=== PATIENT | female | born 1995 | race Caucasian/White ===

== ENCOUNTER 2019-12-22 19:51 | Emergency (ER) | payer MEDICAID, SELFPAY ==
[~2019-12-22] VITALS: Ht 172.7 cm; Wt 95.1 kg
[2019-12-22] MEDS ORDERED: LEVO150T7 PO (20:13)
[2019-12-22 21:35] LABS: BASO # 0.1 10^3/uL (0.0-0.2); BASO % 0.6 % (0.0-1.0); EOS # 0.1 10^3/uL (0.0-0.5); EOS % 1.2 % (0.0-3.0); HEMATOCRIT 38.6 % (36.0-47.0); HEMOGLOBIN 12.8 g/dl (12.0-15.5); LYMPH # 2.3 10^3/uL (1.5-5.0); LYMPH % 22.4 % (24.0-44.0); MEAN CORPUSCULAR HEMOGLOBIN 30.1 pg (27.0-33.0); MEAN CORPUSCULAR HGB CONC 33.2 g/dl (32.0-36.5); MEAN CORPUSCULAR VOLUME 90.8 fl (80.0-96.0); MONO # 0.9 10^3/uL (0.0-0.8); MONO % 8.8 % (0.0-5.0); NEUTROPHILS # 6.9 10^3/uL (1.5-8.5); NEUTROPHILS % 66.8 % (36.0-66.0); PLATELET COUNT, AUTOMATED 376 10^3/uL (150-450); RED BLOOD COUNT 4.25 10^6/uL (4.00-5.40); WHITE BLOOD COUNT 10.3 10^3/uL (4.0-10.0)
[2019-12-22] MEDS ORDERED: KETOROLAC 30 MG/ML 1ML VIAL IV ONE (22:15)
[2019-12-22] MEDS ORDERED: NS 1,000 ML IV ONE (22:15)
[2019-12-22] MEDS ORDERED: ONDANSETRON 4MG/2ML VIAL IV ONE (22:15)
--- NOTE | 2019-12-22 22:28 | REPVR ---
PROCEDURE INFORMATION: Exam: US First Trimester, Transabdominal Exam date and time: 12/22/2019 9:42 PM Age: 24 years old Clinical indication: Lmp or gestational age (in weeks): 10/15/2019; Other: Vaginal bleeding, pain; ; Additional info: Vaginal bleeding, ab pain, known non-viable TECHNIQUE: Imaging protocol: Real-time transabdominal obstetrical ultrasound of the maternal pelvis and a first trimester , less than 14 weeks 0 days, with image documentation. COMPARISON: No relevant prior studies available. FINDINGS: Gestation: The mean sac size is 23 mm corresponding to 6 weeks and 5 days gestation. The pole measures 26.6 mm corresponding to 5 weeks and 6 days. Embryonic/ heart rate: heart rate not detected. Placenta: Unremarkable. No subchorionic bleed. Amniotic fluid: Amniotic fluid is normal for gestational age. MATERNAL: Uterus: Uterus measures 10.3 x 6.4 x 5.0 cm. Uterus is anteverted. Cervix: Unremarkable. Right adnexa: Not visualized. Left adnexa: Not visualized. Intraperitoneal space: No intraperitoneal free fluid. Other findings: Ovaries not visualized. IMPRESSION: Single intrauterine gestational sac with estimated age of 5 weeks and 6 days No evidence for heart rate.. Findings may suggest early gestation/nonviable . Continued follow-up is suggested. Electronically signed by: Mundo Arias On 12/22/2019 22:28:43 PM
[2019-12-22 22:34] LABS: BLOOD UREA NITROGEN 11 MG/DL (7-18); CALCIUM LEVEL 9.5 MG/DL (8.5-10.1); CARBON DIOXIDE LEVEL 27 MEQ/L (21-32); CHLORIDE LEVEL 105 MEQ/L (98-107); CREATININE FOR GFR 0.65 MG/DL (0.55-1.30); GLOMERULAR FILTRATION RATE > 60.0 (>60); GLUCOSE, FASTING 80 MG/DL (70-100); HCG, SERUM QUANTITATIVE 10728 MIU/ML; POTASSIUM SERUM 4.3 MEQ/L (3.5-5.1); SODIUM LEVEL 136 MEQ/L (136-145)
[2019-12-23] MEDS ORDERED: FLUCONAZOLE 50MG TABLET PO ONE
[2019-12-23] MEDS ORDERED: DIFL150T PO (00:08)
[2019-12-23 00:25] LABS: CHLAMYDIA DNA AMPLIFICATION NEGATIVE (NEGATIVE); GC DNA AMPLIFICATION NEGATIVE (NEGATIVE)
[2019-12-23 00:34] VITALS: BP 136/79
[2019-12-24 10:36] LABS: HEPATITIS B SURFACE ANTIGEN NEGATIVE (NEGATIVE)
[2019-12-24 11:02] LABS: HEPATITIS C VIRUS ABY INDEX 0.1 INDEX (<0.8)
[2019-12-24 11:03] LABS: HEPATITIS B CORE ANTIBODY IGM NEGATIVE (NEGATIVE)
[2019-12-24 11:05] LABS: HEPATITIS A ANTIBODY IGM NEGATIVE (NEGATIVE)
[2019-12-27 07:08] LABS: HSV-1 DNA Negative (Negative); HSV-2 DNA Negative (Negative)
== END 2019-12-23 00:36 | disposition home or self-care (01) ==
LOC: EDBD 19:51 → M ED 19:51
DX: O03.89 Complete or unspecified spontaneous abortion with other complications (principal); O23.591 Infection of other part of genital tract in pregnancy, first trimester; B37.3 Candidiasis of vulva and vagina; Z3A.01 Less than 8 weeks gestation of pregnancy; Z79.890 Hormone replacement therapy
CPT/HCPCS: 76801; 76817; 80048; 81001; 84702; 85025; 86705; 86709; 86803; 86850; 86900; 86901; 87210; 87340; 87529; 87661; 96374; 96375; 99284; J1885; J2405

== ENCOUNTER → 2019-12-27 | Outpatient (CLI) | payer OTHER ==
[~2019-12-27] MED LIST: DIFL150T PO; LEVO150T7 PO
--- NOTE | 2019-12-27 10:49 | REPVR ---
PROCEDURE INFORMATION: Exam: US First Trimester, Transabdominal and US , Transvaginal Exam date and time: 12/27/2019 9:48 AM Age: 24 years old Clinical indication: Screening exam; Other: Dating/viability; ; Additional info: Dating and viability TECHNIQUE: Imaging protocol: Real-time transabdominal obstetrical ultrasound of the maternal pelvis and a first trimester , less than 14 weeks 0 days, with image documentation. Transvaginal imaging was used for better evaluation of the fetus and adnexa. COMPARISON: 1ST TRIMESTER US 12/22/2019 9:29 PM FINDINGS: Gestation: Intrauterine with visualization of the intrauterine gestational sac and yolk sac. Irregular contour of the gestational sac. No definite pole but possible embryonic disc, measuring 2.1 mm, which would correspond to a ultrasound gestational age of 5 weeks 5 days. Embryonic/ heart rate: No cardiac activity identified. Placenta: No subchorionic bleed. Amniotic fluid: Amniotic fluid is normal for gestational age. BIOMETRY: Gestational age (AUA): 5 weeks 5 days. MATERNAL: Uterus: Uterus measures 10.1 x 4.5 x 6.8 cm. No myometrial mass. Cervix: Cervix is unremarkable. Right adnexa: Right ovary measures 1.9 x 1.7 x 1.5 cm and is unremarkable. Left adnexa: Left ovary measures 2.0 x 1.0 x 1.1 cm and is unremarkable. Intraperitoneal space: No intraperitoneal free fluid. IMPRESSION: No significant change when compared to the recent examination of 12/22/2019. IUP with an irregular gestational sac and possible embryonic disc, but no clearly defined pole. Ultrasound gestational age of 5 weeks 5 days is discordant with dates by LMP. This is concerning for failed and recommend correlation with serial beta hCG. Early IUP cannot be excluded and follow-up ultrasound can be performed if clinically warranted. Findings were discussed with Huong Ngo at 12/27/2019 10:35 AM EDT. Electronically signed by: Jad Mcdermott On 12/27/2019 10:49:38 AM
== END ==
LOC: M RAD 09:33
PROVIDERS: ATTEND Obstetrics & Gynecology
DX: Z34.81 Encounter for supervision of other normal pregnancy, first trimester (principal); Z3A.01 Less than 8 weeks gestation of pregnancy

== ENCOUNTER 2021-01-22 15:41 | Emergency (ER) | payer OTHER ==
[~2021-01-22] VITALS: Ht 172.7 cm; Wt 103.4 kg
[2021-01-22 15:44] VITALS: BP 120/92
--- OUTSIDE RECORDS SUMMARY | 2021-01-22 16:02 | CCD ---
Author Author [facility] Organization [facility] Address Unknown Phone Unavailable Care Team Providers Care Naphthalene Still Operator Name Role Phone Hospital [facility] [place] Unavailable Unavailable CHINTAN SCHROEDER MD Unavailable Unavailable CHINTAN SCHROEDER MD Unavailable Unavailable CHINTAN SCHROEDER MD Unavailable Unavailable CHINTAN SCHROEDER MD Unavailable Unavailable CHINTAN SCHROEDER MD Unavailable Unavailable CHINTAN SCHROEDER MD Unavailable Unavailable CHINTAN SCHROEDER MD Unavailable Unavailable CHINTAN SCHROEDER MD Unavailable Unavailable CHINTAN SCHROEDER MD Unavailable Unavailable CHINTAN SCHROEDER MD Unavailable Unavailable CHINTAN SCHROEDER MD Unavailable Unavailable CHINTAN SCHROEDER MD Unavailable Unavailable TURRIN, ANA ROSA Unavailable Unavailable TURRIN, ANA ROSA Unavailable Unavailable TURRIN, ANA ROSA Unavailable Unavailable TURRIN, ANA ROSA Unavailable Unavailable TORY, SYLVESTER PA Unavailable Unavailable TORY, SYLVESTER PA Unavailable Unavailable TORY, SYLVESTER PA Unavailable Unavailable TORY, SYLVESTER PA Unavailable Unavailable TORY, SYLVESTER PA Unavailable Unavailable TORY, SYLVESTER PA Unavailable Unavailable TORY, SYLVESTER PA Unavailable Unavailable TORY, SYLVESTER PA Unavailable Unavailable TORY, SYLVESTER PA Unavailable Unavailable TORY, SYLVESTER PA Unavailable Unavailable TORY, SYLVESTER PA Unavailable Unavailable TORY, SYLVESTER PA Unavailable Unavailable TORY, SYLVESTER PA Unavailable Unavailable TORY, SYLVESTER PA Unavailable Unavailable TORY, SYLVESTER PA Unavailable Unavailable TORY, SYLVESTER PA Unavailable Unavailable TORY, SYLVESTER PA Unavailable Unavailable TORY, SYLVESTER PA Unavailable Unavailable TORY, SYLVESTER PA Unavailable Unavailable TORY, SYLVESTER PA Unavailable Unavailable TORY, SYLVESTER PA Unavailable Unavailable TORY, SYLVESTER PA Unavailable Unavailable TORY, SYLVESTER PA Unavailable Unavailable TORY, SYLVESTER PA Unavailable Unavailable TORY, SYLVESTER PA Unavailable Unavailable TORY, SYLVESTER PA Unavailable Unavailable TORY, SYLVESTER PA Unavailable Unavailable TORY, SYLVESTER PA Unavailable Unavailable TORY, SYLVESTER PA Unavailable Unavailable TORY, SYLVESTER PA Unavailable Unavailable TORY, SYLVESTER PA Unavailable Unavailable TORY, SYLVESTER PA Unavailable Unavailable TORY, SYLVESTER PA Unavailable Unavailable TORY, SYLVESTER PA Unavailable Unavailable TORY, SYLVESTER PA Unavailable Unavailable TORY, SYLVESTER PA Unavailable Unavailable Niranjan, J Kamila CARBON PAPER INTERLEAFER Unavailable Unavailable Niranjan, J Kamila CARBON PAPER INTERLEAFER Unavailable Unavailable Niranjan, J Kamila CARBON PAPER INTERLEAFER Unavailable Unavailable Niranjan, J Kamila CARBON PAPER INTERLEAFER Unavailable Unavailable Niranjan, J Kamila CARBON PAPER INTERLEAFER Unavailable Unavailable Niranjan, J Kamila CARBON PAPER INTERLEAFER Unavailable Unavailable Niranjan, J Kamila CARBON PAPER INTERLEAFER Unavailable Unavailable Niranjan, J Kamila CARBON PAPER INTERLEAFER Unavailable Unavailable Niranjan, J Kamila CARBON PAPER INTERLEAFER Unavailable Unavailable Niranjan, J Kamila CARBON PAPER INTERLEAFER Unavailable Unavailable Niranjan, J Kamila CARBON PAPER INTERLEAFER Unavailable Unavailable Niranjan, J Kamila CARBON PAPER INTERLEAFER Unavailable Unavailable Niranjan, J Kamila CARBON PAPER INTERLEAFER Unavailable Unavailable Niranjan, J Kamila CARBON PAPER INTERLEAFER Unavailable Unavailable Niranjan, J Kamila CARBON PAPER INTERLEAFER Unavailable Unavailable Niranjan, J Kamila CARBON PAPER INTERLEAFER Unavailable Unavailable Niranjan, J Kamila CARBON PAPER INTERLEAFER Unavailable Unavailable Niranjan, J Kamila CARBON PAPER INTERLEAFER Unavailable Unavailable Niranjan, J Kamila CARBON PAPER INTERLEAFER Unavailable Unavailable Niranjan, J Kamila CARBON PAPER INTERLEAFER Unavailable Unavailable Niranjan, J Kamila CARBON PAPER INTERLEAFER Unavailable Unavailable Niranjan, J Kamila CARBON PAPER INTERLEAFER Unavailable Unavailable Niranjan, J Kamila CARBON PAPER INTERLEAFER Unavailable Unavailable Niranjan, J Kamila CARBON PAPER INTERLEAFER Unavailable Unavailable Niranjan, J Kamila CARBON PAPER INTERLEAFER Unavailable Unavailable Niranjan, J Kamila CARBON PAPER INTERLEAFER Unavailable Unavailable Niranjan, J Kamila CARBON PAPER INTERLEAFER Unavailable Unavailable Niranjan, J Kamila CARBON PAPER INTERLEAFER Unavailable Unavailable Niranjan, J Kamila CARBON PAPER INTERLEAFER Unavailable Unavailable Niranjan, J Kamila CARBON PAPER INTERLEAFER Unavailable Unavailable Niranjan, J Kamila CARBON PAPER INTERLEAFER Unavailable Unavailable Niranjan, J Kamila CARBON PAPER INTERLEAFER Unavailable Unavailable Niranjan, J Kamila CARBON PAPER INTERLEAFER Unavailable Unavailable Niranjan, J Kamila CARBON PAPER INTERLEAFER Unavailable Unavailable Niranjan, J Kamila CARBON PAPER INTERLEAFER Unavailable Unavailable Niranjan, J Kamila CARBON PAPER INTERLEAFER Unavailable Unavailable Niranjan, J Kamila CARBON PAPER INTERLEAFER Unavailable Unavailable Niranjan, J Kamila CARBON PAPER INTERLEAFER Unavailable Unavailable Niranjan, J Kamila CARBON PAPER INTERLEAFER Unavailable Unavailable Niranjan, J Kamila CARBON PAPER INTERLEAFER Unavailable Unavailable [place] Run, Precious PA Unavailable Unavailable Steve, Precious PA Unavailable Unavailable Steve, Precious PA Unavailable Unavailable [place], Precious PA Unavailable Unavailable [place], Precious PA Unavailable Unavailable Steve, Precious PA Unavailable Unavailable Steve, Precious PA Unavailable Unavailable Steve, Precious PA Unavailable Unavailable [place], Precious PA Unavailable Unavailable [place], Precious PA Unavailable Unavailable [place], Precious PA Unavailable Unavailable Steve, Precious PA Unavailable Unavailable Steve, Precious PA Unavailable Unavailable [place], Precious PA Unavailable Unavailable [place], Precious PA Unavailable Unavailable [place], Precious PA Unavailable Unavailable [place], Precious PA Unavailable Unavailable [place], Precious PA Unavailable Unavailable [place], Precious PA Unavailable Unavailable Steve, Precious PA Unavailable Unavailable [place], Precious PA Unavailable Unavailable [place], Precious PA Unavailable Unavailable [place], Precious PA Unavailable Unavailable [place], Precious PA Unavailable Unavailable Steve, Precious PA Unavailable Unavailable [place], Precious PA Unavailable Unavailable Steve, Precious PA Unavailable Unavailable Steve, Precious PA Unavailable Unavailable Steve, Precious PA Unavailable Unavailable Steve, Precious PA Unavailable Unavailable Steve, Precious PA Unavailable Unavailable Steve, Precious PA Unavailable Unavailable [place], Precious PA Unavailable Unavailable [place], Precious PA Unavailable Unavailable Steve, Precious PA Unavailable Unavailable [facility] Unavailable Unavailable Anju YANG MD Unavailable Unavailable Anju YANG MD Unavailable Unavailable CHANLIECCO, C LEE MD Unavailable Unavailable CHANLIECCO, C LEE MD Unavailable Unavailable CHANLIECCO, C LEE MD Unavailable Unavailable CHANLIECCO, C LEE MD Unavailable Unavailable CHANLIECCO, C LEE MD Unavailable Unavailable CHANLIECCO, C LEE MD Unavailable Unavailable CHANLIECCO, C LEE MD Unavailable Unavailable CHANLIECCO, C LEE MD Unavailable Unavailable CHANLIECCO, C LEE MD Unavailable Unavailable Re-disclosure Warning The records that you are about to access may contain information from federally-assisted alcohol or drug abuse programs. If such information is present, then the following federally mandated warning applies: This information has been disclosed to you from records protected by federal confidentiality rules (42 CFR part 2). The federal rules prohibit you from making any further disclosure of this information unless further disclosure is expressly permitted by the written consent of the person to whom it pertains or as otherwise permitted by 42 CFR part 2. A general authorization for the release of medical or other information is NOT sufficient for this purpose. The Federal rules restrict any use of the information to criminally investigate or prosecute any alcohol or drug abuse patient.The records that you are about to access may contain highly sensitive health information, the redisclosure of which is protected by Article 27-F of the [facility] Public Health law. If you continue you may have access to information: Regarding HIV / AIDS; Provided by facilities licensed or operated by the [facility] Office of Mental Health; or Provided by the [facility] Office for People With Developmental Disabilities. If such information is present, then the following [facility] mandated warning applies: This information has been disclosed to you from confidential records which are protected by state law. State law prohibits you from making any further disclosure of this information without the specific written consent of the person to whom it pertains, or as otherwise permitted by law. Any unauthorized further disclosure in violation of state law may result in a fine or long-term sentence or both. A general authorization for the release of medical or other information is NOT sufficient authorization for further disc losure. Allergies and Adverse Reactions Type Description Substance Reaction Status Data Source(s ) Propensity to adverse reactions NO KNOWN ALLERGIES NO KNOWN ALLERGIES [facility] Family History Family Member Name Family Member Gender Family Member Status Date o f Status Description Data Source(s) Unknown Unknown Problem MED[facility] ([facility]) Encounters Encounter Providers Location Date Indications Data Source(s ) Outpatient Attender: [facility] 10/07/2020 07:2 5:00 AM EDT [facility] Emergency Attender: ANA ROSA BARBOZAConsultant: DAVID DUGAN 10/07/2020 06:36:00 AM EDT - 10/07/2020 01:58:[address] [facility] Patient discharged. Emergency Attender: LEE YANG MDConsultant: CLIN IC CHEPE 08/30/2020 03:51:00 AM EDT - 08/30/2020 05:02:[address] [facility] Patient discharged. Outpatient Attender: Precious LOPEZ [id number] 12:00:00 AM EDT - 06/20/2020 03:11:[facility]: Kamila Ureña NP 05/23/2020 12:00:00 AM [facility] Emergency Attender: LEE YANG MDConsultant: GUERLINE IC CHEPE 05/20/2020 06:59:00 PM EST - 05/20/2020 09:06:00 PM [facility] Patient discharged. Emergency Attender: CHINTAN SCHROEDER MD 1 04/21/2019 05:37:00 PM EST - 02/20/2020 10:06:00 PM [facility] Patient discharged. [facility] [place] [address] [facility] [phone] 01/24/2020 12:00:00 AM EDT eCW1 ([facility]) Emergency Attender: ANA ROSA BARBOZA 2019 06:31:00 PM EDT - 01/10/2020 08:20:[address] [facility] Patient discharged. [place] [address] [place] [phone] 01/07/2020 12:00:00 AM EDT eCW1 ([facility]) Outpatient Attender: SYLVESTER astudillo 12/13/2019 05:05:00 PM EDT [facility] ([facility], [facility]) Medications Medication Brand Name Start Date Product Form Dose Route Admi nistrative Instructions Pharmacy Instructions Status Indications Reaction Description Data Source(s) Ethinyl Estradiol 0.035 MG / norgestimat e 0.25 MG Oral Tablet Norgestimate-Eth Estradiol 0.25-35 MG-MCG Oral Tablet (Estarylla) Norgestimate-Eth Estradiol 0.25-35 MG-MCG Oral Tablet (Estarylla) 10/22/2019 12:00:00 AM EDT 1 {tbl} Oral aborted Take 1 tablet by lexy weir [facility] Insurance Providers Payer name Policy type / Coverage type Policy ID Covered green party ID Covered green party's relationship to wiley Policy Wiley Plan Information U [id number] Child [id number] U [id number] Self [id number] EMPIRE PLAN [facility] U [id number] Child [id number] [place] 306/806 [id number] EXCELLUS H [id number] Child [id number] U [id number] Self [id number] [employer] - O/P [id number] 01 [id number] [place] - PHYSICIAN [id number] 01 [id number] O UNAVAILABLE UNAVAILA BLE EXCELLUS BCBS B [id number] C VYA [id number] PGBA [place] [id number] SP [id number] PGBA [place] [id number] [id number] SELF PAY ONLY - SP1 SP [place]BS [place] PPO [id number] [id number] [place] PPO 302/307 [id number] SP [id number] VALUE OPTIONS OUTPATIENT CLAIM [id number] [facility] [id number] [facility] [id number] DA2 [id number] ANSI-Commercial [id number] ANSI-Commercial [id number] [facility] [id number] [facility] [id number] MO2 [id number] ANSI-Commercial [id number] BCBS EMPIRE ST[place] DIV [id number] [facility] [place] Commercial [id number] Family Dependent [id number] [facility] Commercial [id number] Family Dependent [id number] SELF PAY HEA UNAVAILABLE [id number] S UNAVAILA BLE O UNAVAILABLE S [facility]ILA BLE [facility] O [id number] P [id number] [facility] EMPIRE PLAN O [id number] P [id number] [facility] [id number] 2 [id number] [facility] O [id number] P [id number] SELF PAY ONLY [id number] [facility] - O/P [id number] 01 [id number] [employer] [place] 306/806 [id number] [id number] [place] [id number] Problems, Conditions, and Diagnoses Code Display Name Description Problem Type Effective Dates Data Source(s) E039 Hypothyroidism, unspecified Hypothyroidism, unspecifie d Diagnosis 10/07/2020 06:36:[address] [facility] U071 COVID-19 COVID-19 Diagnosis 10/07/2020 06:36:[address] [facility] R0600 Dyspnea, unspecified Dyspnea, unspecified Diagnosis 10/07/2020 06:36:[address] [facility] G8929 Other chronic pain Other chronic pain Diagnosis 07/2020 03:51:[address] [facility] R102 Pelvic and perineal pain Pelvic and perineal pain Diag nosis 08/30/2020 03:51:00 AM [facility] Y[address] or not applicable Unspecified place or not applicable Diagnosis 05/20/2020 06:59:00 PM [facility] [id number] Exposure to other specified factors, ini tial encounter Exposure to other specified factors, initial encounter Diagnosis 05/20/2020 06:59:00 PM [facility] [id number] Tension-type headache, unspecified, not intractable Tension-type headache, unspecified, not intractable Diagnosis 05/20/2020 06:59:00 P M [facility] 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, lumbar region Other intervertebral disc displacement, lumbar region Diagnosis 05/20/2020 06:59:00 PM [facility] [id number] Strain of muscle, fascia and tendon of l ower back, initial encounter Strain of muscle, fascia and tendon of lower back, initial encounter Diagnosis 05/20/2020 06:59:00 PM [facility] M545 Low back pain Low back pain Diagnosis 05/20/2020 06:59:00 PM [facility] R935 Abnormal findings on diagnos tic imaging of other abdominal regions, including retroperitoneum Abnormal findings on diagnostic imaging of other abdominal regions, including retroperitoneum Diagnosis 05:37:00 PM [facility] R1030 Lower abdominal pain, unspecified Lower abdomina l pain, unspecified Diagnosis 02/20/2020 05:37:00 PM [facility] N921 Excessive and frequent menstruation with irregular cycle Excessive and frequent menstruation with irregular cycle Diagnosis 02/20/2020 05:37: 00 PM [facility] N939 Abnormal uterine and vaginal bleeding, u nspecified Abnormal uterine and vaginal bleeding, unspecified Diagnosis 02/20/2020 05:37:00 PM [facility] [id number] 10 weeks gestation of 10 weeks gestation of Diagnosis 01/10/2020 06:31:00 PM [facility] O036 Delayed or excessive hemorrh age following complete or unspecified spontaneous Delayed or excessive hemorrhage followin g complete or unspecified spontaneous Diagnosis 01/10/2020 06:31:00 PM [facility] O209 Hemorrhage in early , unspecifi ed Hemorrhage in early , unspecified Diagnosis 01/10/2020 06:31:[address] [facility] Surgeries/Procedures No Information Results ID Date Data Source [id number] 10/07/2020 06:36:[address] [facility] [address] [facility] Emergency Department [address] [place] [address] Phone #: ext- [phone] 10/07/2020 06:33 Patient: MAGDY HASSAN Sex: F : 1995 Age: 25yWEIGHT:99.7 kg HEIGHT:68 inches BMI:33.4ALLERGIES: No Known Drug AllergyCHIEF COMPLAINT: dyspneaDIAGNOSIS: Severe acute respiratory syndrome coronavirusLAB ORDERSOrder Description Priority Entered Acknowledged InitialedCBC w Diff STAT 06:53 10/07/2020 06:57 Tamra Flor Riccardo Katelyn M.D.;CMP STAT 06:53 10/07/2020 06:57 Tamra Flor Riccardo Katelyn M.D.;Lactic Acid STAT 06:53 10/07/2020 06:57 Tamra Flor Riccardo Katelyn M.D.;HCG Serum Qual STAT 06:53 10/07/2020 06:57 Tamra Flor Riccardo Katelyn M.D.;COVID-19 CAH STAT 06:53 10/07/2020 06:57 Chacho(Symptomatic as Ana Rosa Barbozaefined by CDC) Anna;(10/07/2020) (NotFirst Test) (NotHospitalized) (Not) (NotResident inCongregate CareSetting) (NotEmployed inHealthcare Setting)Blood Culture STAT 06:53 10/07/2020 Ack'd: 06:58 07:18 [id number] X2 (Ana Rosa Vasquez Katelyn Meyer RN06:53 10/07/2020) Anna;Blood Culture STAT 06:53 10/07/2020 Ack'd: 07:05 07:18 [id number] X2 (Ana Rosa Vasquez Katelyn Meyer RN07:03 10/07/2020) Anna;DIAGNOSTIC STUDY ORDERS [address] [facility] Emergency Department [address] [place] [address] Phone #: ext- [phone] 10/07/2020 06:33 Patient: MAGDY HASSAN Sex: F : 1995 Age: 25yOrder Description Priority Entered Acknowledged InitialedChest 2 View STAT 06:53 10/07/2020 Ack'd: 06:57 Gracie Flor(Oxygen?(No)) Ana Rosa Barboza Initialed: 07:18 Dale Bee RN, M.D.; Cancelled: Physician Order 08:04 Dale Bee RN Reason for Study: Cough, Fever, Shortness of BreathChest Portable 1 STAT 08:04 10/07/2020 08:04 Srinivas (Oxygen? Dale Bee RN; Rohit ZHAO(Yes)) Verbal orde r per ( Verbal order read back and verified ); Marilyn Griffith MD Reason for Study: CoughCT CTA CHEST STAT 10:03 10/07/2020 10:08 Dale(NONCOR) Marilyn Anguiano MD; Rohit ZHAOINC PP(Oxygen?(No))(IV?(Yes)) Reason for Study: dyspnea, +COVIDMEDICATION/IV/DRIP/FLUID ORDERSOrder Description Priority Entered Acknowledged InitialedDuoNeb Neb Tx 3 06:53 10/07/2020 07:19 DorismL Ana Rosa Barboza RN, M.D.;NS IV 1000 mL 06:53 10/07/2020 07:20 DorisBolus: : Bolus 1000 Ana Rosa Barboza RNmL (X1) Anna;Zofran 4 mg IVP X 1 06:54 10/07/2020 07:20 Dorisdose: 4 mg (NOW Ana Rosa Barboza RNx1) Anna;NS IV 1000 mL 08:03 10/07/2020 08:08 PeterBolus: : Bolus 1000 Dale Bee RN; Rohit Alonzo (X1) Verbal order per ( Verbal order read back and verified ); Marilyn Griffith MDIV NS 1000 mL 10:08 10/07/2020 10:45 PeterBolus : Bolus 1000 Marilyn Griffith MD; Rohit Alonzo (X1)Acetaminophen 1 g 10:48 10/07/2020 10:[address] [facility] Emergency Department [address] [place] [address] Phone #: ext- [phone] 10/07/2020 06:33 -- Patient: MAGDY HASSAN Sex: F : 1995 Age: 25yPO X1 dose: 1000 Marilyn Griffith MD; Rohit ZHAOmg (NOW x1)Motrin 800 mg PO 10:48 10/07/2020 10:51 DaleX1 dose: 800 mg Marilyn Griffith MD; Rohit RN(NOW x1)predniSONE PO 60 13:46 10/07/2020 13:53 Petermg (NOW x1) Marilyn Griffith MD; Rohit RNAzithromycin PO 13:46 10/07/2020 13:53 Ctxvo445 mg X1 Dose: Marilyn Griffith MD; Rohit ZHAO500 mg (NOW x1)GENERAL ORDERSOrder Description Priority Entered Acknowledged Initialed[Electronically signed by Dale Bee RN (13:58 10/07/2020)][Electronically signed by Ana Rosa Barboza M.D. (07:41 10/08/2020)][Electronically signed by Marilyn Griffith MD (19:03 10/11/2020)][Electronically locked by Dale Bee RN (13:58 10/07/2020)] Name Value Range Interpretation Code Description Data Anne Marie rce(s) Supporting Document(s) ID Date Data Source [id number] 10/07/2020 06:36:[address] [facility] [address] [facility] Emergency Department [address] [place] [address] Phone #: ext- [phone] 10/07/2020 06:33 Patient: MAGDY HASSAN Sex: F : 1995 Age: 25yWeight: 99.7 kgHeight/Length: 68 in.BMI: 33.4ALLERGIES: No Known Drug AllergyThe patient's Home Medications are listed below:CONTINUE TAKING THE FOLLOWING MEDICATIONS: Levothyroxine Sodium Oral (150 mcg) 1 tablet, dailyThe source(s) of the original Home Medication information:Not obtained.The following Medications were given to the patient in the Emergency Department:Duoneb [Neb Tx] Neb TX 1 unit dose, administered: 07:09 10/07/2020IV NS w/ bolus IV Fluids bolus 1000 mL over 1 hour(s), then 1000 mL/hr, administered: 07:10 10/07/2020Zofran [IVP] IVP 4 mg, administered: 07:10/07/2020NS [IV] IV Fluids bolus 0, then 750 mL/hr, administered: 08:08 10/07/2020NS [IV] IV Fluids bolus 0, then 1000 mL/hr, administered: 10:45 10/07/2020cetaminophen [PO] PO 1000 mg, administered: 10:50 10/07/2020Motrin [PO] PO 800 mg, administered: 10:51 10/07/2020zithromycin [PO] PO 500 mg, administered: 13:53 1Prednisone [PO] PO 60 mg, administered: 13:53 10/07/2020The following Medications were prescribed to the patient:Aerochamber Mini Use 1 device four times a day -- as directed. Dispense 1 device. Refills: 0.Substitution permitted. [address] [facility] Emergency Department [address] [place] [address] Phone #: ext- [phone] 10/07/2020 06:33 Patient: MAGDY HASSAN Sex: F : 1995 Age: 25yPh[facility] - [facility] [id number] [facility] ; [place] [address]. .albuterol sulfate HFA 90 mcg/actuation aerosol inhaler Inhale 2 puff four times a day as needed for 10 days-- for wheezing. Dispense 1 inhaler. Refills: 0. Sub[facility] permitted.[facility] ; [place] [address]. .ondansetron 4 mg di sintegrating tablet Take 1 tablet four times a day as needed for 4 days -- prnnausea/vomiting. Dispense 16 tablet. Refills: 0. Substitution permitted.Pharmacy - [facility] [address] [facility] ; [place] [address]. .Zithromax Z-Zeferino 250 mg tablet for 5 days -- take 2 tabs by mouth now, than take 1 tab a day x 4days. #6 RF 0. Dispense 6 tablet. Refills: 0. Substitution permitted.Pharmacy - [facility] [address] [facility] ; [place] [address]. .prednisone 20 mg tablet Take 3 tablet on ce a day for 5 days -- Dispense 15 tablet. Refills: 0.Substitution permitted.Pharmacy - [facility] - [id number] [facility] ; [place] [address]. . -- Marilyn Griffith MD Name Value Range Interpretation Code Description Data Anne Marie rce(s) Supporting Document(s) ID Date Data Source [id number] 10/07/2020 06:36:[address] [facility] [address] [facility] Emergency Department [address] [place] [address] Phone #: [phone] ext- [phone] 10/07/2020 06:33 Patient: MAGDY HASSAN Sex: F : 1995 Age: 25yWeight: 99.7 kgHeight/Length: 68 inBMI: 33.4ALLERGIES: No Known Drug Allergy Date/Time Medication Administered Medication OrderedGiven DUONEB [NEB TX] DuoNeb Neb Tx 3 mL07:10/07/2020 Dose: 1 unit dose Nebulizer Alison Connor IV NS W/ BOLUS NS IV 1000 mL Bolus: : Bolus 874658:10/07/2020 Dose: IV Fluids mL (X1)Ava Tate RN Rate: 1000 mL/hr over 1 hour(s)---- Bolus: 1000 mL over 1 hour(s)Stop Dispensed: 1000 mL bag08:02 10/07/2020 Site: #1 left ACPeter CECE BeeGicaron ZOFRAN [IVP] (ONDANSETRON HCL) Zofran 4 mg IVP X 1 dose: 4 mg07:10 10/07/2020 Dose: 4 mg IVP (NOW x1)Ava Tate RN Site: #1 left ACStart NS [IV] NS IV 1000 mL Bolus: : Bolus 548142:08 10/07/2020 Dose: IV Fluids mL (X1)Dale Bee RN Rate: 750 mL/hr over 1 hour(s)---- Dispensed: 1000 mL bagStop Site: #1 left AC09:12 1PAlison Bobby NS [IV] IV NS 1000 mL Bolus : Bolus 006188:45 10/07/2020 Dose: IV Fluids mL (X1)Dale Bee RN Rate: 1000 mL/hr over 1 hour(s)---- Dispensed: 1000 mL bagStop Site: #1 left AC13:58 1PMoises Bobby ACETAMINOPHEN [PO] Acetaminophen 1 g PO X1 dose:10:50 10/07/2020 Dose: 1000 mg Tablets PO 1000 mg (NOW x1)Moises Gallagher MOTRIN [PO] (IBUPROFEN) Motrin 800 mg PO X1 dose: 08899:51 10/07/2020 Dose: 800 mg Tablets PO mg (NOW x1)Moises Gallagher PREDNISONE [PO] pr edniSONE PO 60 mg (NOW x1)13:53 10/07/2020 Dose: 60 mg Tablets Moises Mas AZITHROMYCIN [PO] Azithromycin PO 500 mg X1 Dose:13:53 10/07/2020 Dose: 500 mg Tablets PO 500 mg (NOW x1)Dale Bee RN Name Value Range Interpretation Code Description Data Anne Marie rce(s) Supporting Document(s) ID Date Data Source [id number] 10/07/2020 06:36:[address] [facility] [address] [facility] Emergency Department [address] [place] [address] Phone #: ext- [phone] 10/07/2020 06:33 Patient: MAGDY HASSAN Sex: F : 1995 Age: 25y(Electronically signed by Ana Rosa Barboza M.D. 10/08/2020 07:41) Coronavirus COVID-19.INSTRUCTIONS Take Tylenol (Acetaminophen) or Motrin (Ibuprofen) as needed for fever control. Take medication according to label instructions. (Drink plenty of fluids. return if worse or any new symptoms. It is important to quarantine for 2 weeks. it is important to eat. i sent your prescriptions to the pharmacy on file.). Warnings: Further evaluation is necessary. GENERAL WARNINGS: Return or contact your physician immediately if your condition worsens or changes unexpectedly, if not improving as expected, or if other problems arise. Your Current Medications: Your current home medications have been reviewed. CONTINUE TAKING THE FOLLOWING MEDICATIONS: Levothyroxine Sodium Oral : Tablet 150 mcg, 1 tablet daily. Prescription Medications: Aerochamber Mini Use 1 device four times a day -- as directed. Dispense 1 device. Refills: 0. Substitution permitted. Pharmacy - [facility] [address] [facility] ; [place] [address]. . albuterol sulfate HFA 90 mcg/actuation aerosol inhaler Inhale 2 puff four times a day as needed for [address] [facility] Emergency Department [address] [place] [address] Phone #: ext- [phone] 10/07/2020 06:33 Patient: MAGDY HASSAN Sex: F : 1995 Age: 25y -- for wheezing. Dispense 1 inhaler. Refills: 0. Substitution permitted. Pharmacy - [facility] - [address] [facility] ; [place] [address]. . ondansetron 4 mg disintegrating tablet Take 1 tablet four times a day as needed for 4 days -- prn nausea/vomiting. Dispense 16 tablet. Refills: 0. Substitution permitted. Pharmacy - [facility] - [address] [facility] ; [place] [address]. . Zithromax Z-Zeferino 250 mg tablet for 5 days -- take 2 tabs by mouth now, than take 1 tab a day x 4 days. #6 RF 0. Dispense 6 tablet. Refills: 0. Substitution permitted. Pharmacy - [facility] - [address] [facility] ; [place] [address]. . prednisone 20 mg tablet Take 3 tablet once a day for 5 days -- Dispense 15 tablet. Refills: 0. Substitution permitted. Pharmacy - [facility] - [address] [facility] ; [place] [address]. Phone: . Follow-up: Follow up with your doctor telemedicine in two days even if well. Call for an appointment. Reason for referral: evaluation. Summary of care provided to patient via paper. Understanding of the discharge instructions verbalized by patient. ADDITIONAL INFORMATIONUnderstanding Coronavirus Disease 2 019 (COVID-19)Coronavirus disease 2019 (COVID-19) is a virus that causes a respiratory illness. It is caused by acoronavirus called 2019 novel coronavirus (2019-nCoV). There are many types of coronavirus.Coronaviruses are a very common cause of bronchitis. They may sometimes cause lung infection(pneumonia). Symptoms can range from mild to severe respiratory illness. These viruses are alsofound in some animals. COVID-19 was first found in people in [facility], in late 2019. In 2020,several cases of COVID-19 have been confirmed in the [place] COVID-19 is a rapidly-emerginginfectious disease. This means that scientists are actively researching it. There are informationupdates regularly.Public health officials are working to find the source. How the virus spreads is not yet fullyunderstood, but it seems to spread and infect people fairly easily. Some people who have beeninfected in an area may be unsure how or where they became infected. The virus may be spreadthrough droplets of fluid that a person coughs or sneezes into the air. It may be spread if you touch asurface with virus on it, such as a handle or object, and then touch your eyes, nose, or mouth. [address] [facility] Emergency Department [address] [place] [address] Phone #: ext- [phone] 10/07/2020 06:33 Patient: MAGDY HASSAN Sex: F : 1995 Age: 25yFor the latest information, visit the CDC website at www.cdc.gov/coronavirus/2019-ncov.What are the symptoms of COVID-19?Some people have no symptoms or mild symptoms. Symptoms may appear 2 to 14 days aftercontact with the virus. Symptoms can include: Fever Coughing Trouble breathingWhat are possible complications from COVID-19?In many cases, this virus can cause infection (pneumonia) in both lungs. In some cases, this cancause .How is COVID-19 diagnosed?Your healthcare provider will ask about your symptoms. He or she will also ask about your recenttravel and contact with sick people. If your healthcare provider thinks you may have COVID-19, jesús [facility]rews will work closely with your local health department and the CDC on testing. Follow all instructionsfrom your healthcare provider. COVID-19 is diagnosed by: Nasal and throat swab. A cotton-tipped swab is wiped inside your nose or throat. This is done to check for viruses in your nasal mucus. Sputum culture. A small sample of mucus coughed from your lungs (sputum) is collected if you have a cough. It is checked for the virus.How is COVID-19 treated?There is currently no medicine to treat the virus. Treatment is done to help your body while it fightsthe virus. This is known as supportive care. Supportive care may include: Pain medicine. These include acetaminophen and ibuprofen. They are used to help ease pain and reduce fever. Bed rest. This helps your body fight the illness.For severe illness, you may need to stay in the hospital. Care during severe illness may include: IV (intravenous) fluids.These are given through a vein to help keep your body hydrated. Oxygen. Supplemental oxygen or ventilation with a breathing machine (ventilator) may be given. This is done so you get enough oxygen in your body. [address] [facility] Emergency Department [address] [place] [address] Phone #: ext- [phone] 10/07/2020 06:33 Patient: MAGDY HASSAN Sex: F : 1995 Age: 25yAre you at risk for COVID-19?You are at risk for infection if you've been to a place where people have been sick with this virus or ifthere are people with COVID-19 in your area. You are at risk if you: Recently traveled to an area with a COVID-19 outbreak Had contact with a sick person who recently traveled to an area with a COVID-19 outbreak Had contact with a person who was diagnosed with or who may have COVID-19How can COVID-19 be prevented?There is no vaccine yet. The best prevention is to not have contact with the virus. The CDC advisesthat people should not travel to areas where there are COVID-19 outbreaks right now for any reasonthat is not urgent. For the most current CDC travel advisories, visit the CDC website atwww.cdc.gov/coronavirus/2019-ncov/travelers.To help prevent spreading the infection, wash your hands often, or use an alcohol-based hand record pressman. [address] [facility] Emergency Department [address] [place] [address] Phone #: ext- [phone] 10/07/2020 06:33 Patient: MAGDY HASSAN Sex: F : 1995 Age: 25yThe [facility] advises that you shouldn't wear a face mask if you are not sick.To protect yourself from COVID-19: Wash your hands often with soap and clean, running water for at least 20 seconds. If you don't have access to soap and water, use an alcohol-based hand record pressman often. Make sure it has at least 60% alcohol. Don't touch your eyes, nose, or mouth unless you have clean hands. Don't have contact with people who are sick. Follow local instructions about being in public. For example, you may be told to not use public transport for a period of time. Experts don't know if animals spread 2019-nCoV. But it's always a good idea to wash your hands after touching any animals. Don't touch animals that may be sick. Don't share eating or drinking tools with sick people. Don't kiss someone who is sick. Clean surfaces often with disinfectant.If you were in an area with COVID-19 in the last 14 days: Call your healthcare provider. He or she can talk with local health staff to see what action may be needed. Follow all instructions from your provider. Take your temperature every morning and evening for at least 14 days. This is to check for fever. Keep a record of the readings. Keep watch for symptoms of the virus. Tell your provider right away if you have symptoms. Stay home if you are sick for any reason.If you were in an area with COVID-19 and have a fever or other symptoms: Stay home. Don't panic. Keep in mind that other illnesses can cause similar symptoms. Stay away from work, school, and public places. Limit physical contact with family members. Don't kiss anyone or share eating or drinking utensils. Clean surfaces you touch with disinfectant. This is to help prevent the virus from spreading. Cough or sneeze into a tissue, then throw away the tissue in the trash. Or cough or sneeze [address] [facility] Emergency Department [address] [place] [address] Phone #: ext- [phone] 10/07/2020 06:33 Patient: MAGDY HASSAN Sex: F : 1995 Age: 25y into the bend of your elbow. Wear a face mask. Call your healthcare provider. Explain that you have been exposed to COVID-19 and have symptoms. Do this before going to any hospital. Wait for instructions. Keep in mind that healthcare staff may wear protective equipment such as masks, gowns, gloves, and eye protection. You may be put in a separate room. This is to prevent the possible virus from spreading. Tell the healthcare staff about recent travel. This includes local travel on public transport. Staff may need to find other people you have been in contact with. Follow all instructions the healthcare staff give you.If you have been diagnosed with COVID-19 Stay home. Don't leave your home unless you need to get medical care. Follow all instructions from your healthcare provider. Call your healthcare provider's office before going. They can prepare and give you instructions. This will help prevent the virus from spreading. Don't go to work, school, or public areas. Don't use public transport or taxis. Stay away from other people in your home. Wear a face mask. This is to protect other people from your germs. They do not need to wear face masks. Don't share household items or food. Cover your face with a tissue when you cough or sneeze. Throw the tissue away. Then wash your hands. Wash your hands often.Caregivers should: Follow all instructions from healthcare staff. Wear protective clothing as advised. Make sure the sick person wears a mask. Wash hands often. [address] [facility] Emergency Department [address] [place] [address] Phone #: ext- [phone] 10/07/2020 06:33 Patient: MAGDY HASSAN Sex: F : 1995 Age: 25y Keep track of the sick person's symptoms. Clean surfaces, fabrics, and laundry thoroughly. Keep other people away from the sick person.When to call your healthcare providerCall your healthcare provider: If you've recently traveled and have symptoms If you have been diagnosed with COVID-19 and your symptoms are worse [id number] [employer] [address] [place] [address]. All rights reserved. This information is not intended as asubstitute for professional medical care. Always follow your healthcare professional's instructions. You have been given the following additional information: Coronavirus Disease 2019 (COVID-19)(Electronically signed by Marilyn Griffith MD 10/11/2020 19:03) Name Value Range Interpretation Code Description Data Anne Marie rce(s) Supporting Document(s) ID Date Data Source [id number] 10/07/2020 06:36:[address] [facility] 1 Clinical Report - Nurses [facility] Emergency Department [address] [place] [address] Phone #: ext- [phone] 10/07/2020 06:33 Patient: MAGDY HASSAN Sex: F : 1995 Age: 25yTRIAGEArrived by EMS. Historian: patient.Acuity: LEVEL 3.Chief Complaint: SHORTNESS OF BREATH and (HEADACHE).Alert.( Patient states for the past 2 days she has had shortness of breath and a headache. States this morning ithad gotten worse and she has chills and body aches.).Treatment CONSTRUCTION TRADES CONTRACTOR:None.SEPSIS SCREEN: SIRS SCREEN NEGATIVE: heart rate greater than 90. SEPSIS SCREEN NEGATIVE.No suspected or confirmed signs of infection present. --06:41 10/07/20 Gracie Flor06:34 10/07/20. BP: 128/67. MAP: 87. HR: 116. RR: 17. O2 saturation: 94% on room air. Temp: 100.3 F.Pain level now: 12/05. --06:41 10/07/20 Gracie Flor.Weight: 99.7 kg. Height/Length: 68 inches. BMI: 33.4. --06:33 10/07/20 Gracie Flor.MedicationsLevothyroxine Sodium Oral (Tablet 150 mcg) 1 tablet, daily. --06:39 10/07/20 Gracie Flor.AllergiesNo Known Drug Allergy. --06:39 10/07/20 Gracie Flor.PROBLEMS:Back Pain.Headache.Abdominal Pain.Abnormal Test.Pelvic Pain.Vaginal Bleeding.Hypothyroidism.Miscarriage (disorder). --06:40 10/07/20 Gracie Flor.ADDITIONAL SURGERIES:Thyroid Surgery.Tonsillectomy. --06:40 10/07/20 Gracie Flor. 2 Clinical Report - Nurses [facility] Emergency Department [address] [place] [address] Phone #: ext- [phone] 10/07/2020 06:33 Patient: MAGDY HASSAN Sex: F : 1995 Age: 25y History PAST MEDICAL HX: Last normal menstrual period was 4 weeks ago. Currently . SOCIAL HX: Never smoker. No alcohol use or drug use. She was offered HIV testing but declined. Patient education was provided. She was offered hepatitis C testing but declined. Patient education was provided. She has not traveled outside the [place] Infectious disease exposure: No infectious disease exposure. The patient was not exposed to Coronavirus. Patient is not a known carrier of tuberculosis, hepatitis, HIV, MRSA or VRE. Patient is not a known carrier of CRE. SELF HARM ASSESSMENT: Self harm assessment was performed. The patient answered "no" to the question(s) "Have you recently felt down, depressed, or hopeless?" and "Do you have thoughts of harming or killing yourself?". ABUSE ASSESSMENT: Abuse assessment. The patient had positive responses to the question(s) "Do you feel safe in your home?" and "Are you afraid to go home?". Abuse denied. No suspicion of abuse. No report of abuse. NUTRITIONAL RISK ASSESSMENT: The nutritional risk assessment revealed no deficiencies. FUNCTIONAL ASSESSMENT: Functional assessment: no impairments noted. LEARNING NEEDS ASSESSMENT: The learning needs assessment revealed no barriers. FALL RISK ASSESSMENT: Fall risk assessment completed. No risk factors identified. SKIN INTEGRITY ASSESSMENT: Skin integrity risk assessment completed. No skin integrity risk identified. --06:41 10/07/20 Gracie Flor. Interventions Identification band on patient. --06:41 10/07/20 Gracie Flor.PHYSICAL ASSESSMENTTo room via stretcher.GENERAL / NEURO / PSYCH: Alert. Oriented X 4.HEENT: Mucous membranes are pink.RESPIRATORY: No respiratory distress. Respirations not labored. Cough. Chest nontender.CVS: Normal sinus rhythm noted. Capillary refill less than 2 seconds.GI / : Abdomen soft and nontender. Bowel sounds within normal limits.SKIN: Skin is warm and dry. Normal skin turgor. --06:42 10/07/20 Gracie Flor.NURSING PROGRESS NOTESOxygen administered by nasal cannula at 2 liters. Monitoring of patient in place. Patient gowned.Reassurance given. Two patient identifiers checked. Call light placed in reach. Side rails up x 2. Bed 3 Clinical Report - Nurses [facility] Emergency Department [address] [place] [address] Phone #: ext- [phone] 10/07/2020 06:33 Patient: MAGDY HASSAN Sex: F : 1995 Age: 25yplaced in lowest position. Brakes of bed on. Patient ready for evaluation- ED physician notified. --06: Gracie Flor06:53 10/07/2020 Site #1 sta rted via IV in the left antecubital space with an 20g angiocath, with aseptictechnique and good blood return; one attempt. Blood drawn: rainbow set. Saline lock flushed with saline.--06:53 10/07/20 Mathew Florent ID band checked for patient name and birthdate: patient confirmed. COVID-19 specimen obtainedby RN via nasopharyngeal swab. Labeled in the presence of the patient and sent to lab. --06:57 10/07/20Charles Flor:45 10/07/20. BP: 129/64. MAP: 85. HR: 111. RR: 17. O2 saturation: 92%. --07:02 10/07/20 Gracie Flor07:00 10/07/20. BP: 116/51. MAP: 72. HR: 88. RR: 17. O2 saturation: 97%. --07:02 10/07/20 Julius Flor:15 10/07/20. BP: 107/60. MAP: 75. HR: 101. RR: 19. O2 saturation: 100% on nasal cannula at 2liters/minute. --07:17 10/07/20 Gracie Flor07:09 10/07/2020 Duoneb Neb TX Nebulizer 1 unit dose given. Given by the nurse. Allergies verified andconfirmed 5 rights. Information reviewed with patient including reason for taking this medication, signs ofallergic reaction and precautions. Verbalizes understanding. --07:19 10/07/20 Ava Tate RN07:10 10/07/2020 Started bag #1 1000 mL IV Fluids IV NS w/ bolus; bolus of 1000 mL over 1 hour(s) thenat 1000 mL/hr over 1 hour(s) via site #1 via IV pump. Allergies verified and confirmed 5 rights. IV patencyestablished. IV site checked: no pain, redness, or swelling. IV flushed thoroughly pre- and post- medicationadministration. Information reviewed with patient including reason for taking this medication, signs ofallergic reaction and precautions. Verbalizes understanding. Completed per protocol. --07:10/07/20Ava Tate RN07:10/07/2020 Zofran (Ondansetron HCl) IVP 4 mg given over 1 minute(s) via site #1. Allergies verifiedand confirmed 5 rights. IV patency established. IV site checked: no pain, redness, or swelling. IV flushedthoroughly pre- and post- medication administration. IVP given by RN. Information reviewed with patientincluding reason for taking this medication, signs of allergic reaction and precautions. Verbalizesunderstanding. --07:10/07/20 Ava Tate RN08:02 10/07/2020 IV Fluids IV NS w/ bolus via IV site #1 Discontinued: infused. Total amount infused: 950mL. IV patency established. IV site checked: no pain, redness, or swelling. IV flushed thoroughly. --08: Dale Bee RN08:10/07/2020 Started bag #1 1000 mL IV Fluids NS; at 750 mL/hr over 1 hour(s) via site #1 via IVpump. Allergies verified and confirmed 5 rights. IV patency established. IV site checked: no pain, redness,or swelling. IV flushed thoroughly pre- and post-medication administration. Information reviewed with 4 Clinical Report - Nurses [facility] Emergency Department [address] [place] [address] Phone #: ext- [phone] 10/07/2020 06:33 Patient: MAGDY HASSAN Sex: F : 1995 Age: 25ypatient including reason for taking this medication. Verbalizes understanding. --08:08 10/07/20 CECE Avery08:09 10/07/20. BP: 123/77. MAP: 92. HR: 124. RR: 20. O2 saturation: 99% on nasal cannula at 2liters/minute. Pain level now: 11/04. --08:09 10/07/20 Dale Bee RN09:12 10/07/2020 IV Fluids NS via IV site #1 Discontinued: bag #2 infused. Total amount infused: 1000 mL.IV patency established. IV site checked: no pain, redness, or swelling. IV flushed thoroughly. --09: Dale Bee RN09:00 10/07/20. BP: 121/84. MAP: 96. HR: 119. RR: 24. O2 saturation: 100%. --10:34 10/07/20 [facility] Sdcx528:00 10/07/20. BP: 118/79. MAP: 92. HR: 120. RR: 28. O2 saturation: 100%. --10:35 10/07/20 [place] [facility] Hdlp544:45 10/07/2020 Started bag #3 1000 mL IV Fluids NS; at 1000 mL/hr over 1 hour(s) via site #1 via IVpump. Allergies verified and confirmed 5 rights. IV patency established. IV site checked: no pain, redness,or swelling. IV flushed thoroughly pre- and post- medication administration. Information reviewed withpatient including reason for taking this medication. Verbalizes understanding. --10:45 10/07/20 CECE Avery10:45 10/07/20. BP: 122/89. MAP: 100. HR: 124. RR: 20. O2 saturation: 98%. Temp: 101.3 F. Pain levelnow: 10/04. --10:46 10/07/20 DIVINA Gallagher:50 10/07 Acetaminophen PO Tablets 1000 mg given. Allergies verified and confirmed 5 rights.Information reviewed with patient including reason for taking this medication. Verbalizes understanding.--10:50 10/07/20 Dale Bee RN10:51 10/07/2020 Motrin (Ibuprofen) PO Tablets 800 mg given. Allergies verified and confirmed 5 rights.Information reviewed with patient including reason for taking this medication. Verbalizes understanding.--10:51 10/07/20 Dale Bee RN11:32 10/07/20. BP: 117/81. MAP: 93. HR: 118. RR: 20. O2 saturation: 98%. Temp: 101 F. Pain levelnow: 10/04. --11:34 10/07/20 Dale Bee RN( pt remains awake and alert, mother is at the bedside, pt waiting for a CT). --11:34 10/07/20 Dale Bee RN12:00 10/07/20. BP: 116/76. MAP: 89. HR: 100. RR: 13. O2 saturation: 100%. --13:01 10/07/20 [facility], Vgcl046:30 10/07/20. BP: 130/79. MAP: 96. HR: 95. RR: 12. O2 saturation: 100%. --13:02 10/07/20 [facility] hospital[facility] Joshi Tech1 5 Clinical Report - Nurses [facility] Emergency Department [address] [place] [address] Phone #: ext- [phone] 10/07/2020 06:33 Patient: MAGDY HASSAN Sex: F : 1995 Age: 25y 13:07 10/07/20. BP: 131/85. MAP: 100. HR: 109. RR: 18. O2 saturation: 99% on nasal cannula at 2 liters/minute. Temp: 99.1 F. Pain level now: 07/05. --13:07 10/07/20 Dale Bee RN 13:49 10/07/2020 Site #1 removed upon discharge. Catheter intact. Manual pressure and bandage applied. --13:49 10/07/20 Dale Bee RN 13:53 10/07/2020 Azithromycin PO Tablets 500 mg given. Allergies verified and confirmed 5 rights. Information reviewed with patient including reason for taking this medication. Verbalizes understanding. --13:53 10/07/20 Dale Bee RN 13:53 10/07/2020 Prednisone PO Tablets 60 mg given. Allergies verified and confirmed 5 rights. Information reviewed with patient including reason for taking this medication. Verbalizes understanding. --13:53 10/07/20 Dale Bee RN 13:58 10/07/2020 IV Fluids NS via IV site #1 Discontinued: bag #3 infused. Total amount infused: 995 mL. IV patency established. IV site checked: no pain, redness, or swelling. IV flushed thoroughly. --13:58 10/07/20 Dale Bee RN.DISPOSITION / DISCHARGE Condition at departure: improved and stable. Discharge instructions provided and reviewed with the patient. Reviewed medication(s) side effects, precautions, dosing and course information. Prescription(s) sent electronically to pharmacy. Patient verbalized understanding. Written instructions provided in [place]ar[place]. The patient was discharged by the physician. She was discharged home and accompanied by spouse. She left ambulatory and via private vehicle. Spouse driving. --13:57 10/07/20 Dale Bee RN 13:56 10/07/20. BP: 121/68. MAP: 85. HR: 108. RR: 16. O2 saturation: 98%. Pain level now: 07/05. --13:57 10/07/20 Dale Bee RN.Locked/Released at 10/07/2020 13:58 by Dale Bee RN Name Value Range Interpretation Code Description Data Anne Marie rce(s) Supporting Document(s) ID Date Data Source [id number] 10/07/2020 06:36:[address] [facility] 1 Clinical Report - Physicians/Mid Levels [facility] Emergency Department [address] [place] [address] Phone #: ext- [phone] 10/07/2020 06:33 Patient: MAGDY HASSAN Sex: F : 1995 Age: 25y Time Seen: 06:43 10/07/2020; initial patient contact. Arrived- By ambulance. Historian- patient.HISTORY OF PRESENT ILLNESS Chief Complaint: DYSPNEA. This started today and is still present. It has been intermittent. The dyspnea is described as moderate and is severe and is worsened by cough and is improved by rest. The patient has had a moderate cough productive of clear sputum (x 2 days). She has had clear sputum and anxiety and experienced sweating episodes. She has had fever of 100.2 F orally (yesterday). No wheezing, chest pain or discomfort, calf pain or foot swelling. (not vaccinated vs. Covid). Similar symptoms previously. Patient has had similar symptoms occasionally. Recent medical care: Not recently seen/assessed.REVIEW OF SYSTEMSThe patient has had mild sinus drainage, mild nausea and vomiting. The vomiting has occurred twice. butnot had weight loss. No muscle aches, eye irritation, sore throat, abdominal pain or diarrhea. No blackstools, bloody stools, headache, fainting episodes or blurred vision. No difficulty with urination, excessiveurination, skin rash, enlarged lymph nodes or joint pain. The patient has had a moderate watery nasaldischarge. passed twice this am coming in by POV, called 911 from car. All other systemsreviewed and are negative.PAST HISTORYSee nurses notes. Problems: Anxiety Reaction. Endometriosis. Back Pain. Hypothyroidism. Additional Surgeries: Thyroid Surgery. Tonsillectomy. Medications: Levothyroxine Sodium Oral (Tablet 150 mcg) 1 tablet, daily. Allergies: No Known Drug Allergy. 2 Clinical Report - Physicians/Mid Levels [facility] Emergency Department [address] [place] [address] Phone #: ext- [phone] 10/07/2020 06:33 Patient: MAGDY HASSAN Sex: F : 1995 Age: 25ySOCIAL HISTORYNever smoker. No alcohol use or drug use.ADDITIONAL NOTESThe nursing notes have been reviewed with agreement regarding the chief complaint, HPI, ROS, PMH andpatient medications and allergies.PHYSICAL EXAMVital Signs: 10/07/2020 06:34 BP: 128/67. MAP: 87. HR: 116. RR: 17. O2 saturation: 94% on room air.Temp: 100.3 F. Pain level now: 910. Have been reviewed. Febrile. Oxygen saturation normal.Appearance: No acute distress. Anxious.Eyes: Pupils equal, round and reactive to light. Eyes normal inspection.ENT: Ears normal. Minimal, clear nasal discharge present. Pharynx normal. Uvula midline.Neck: Normal inspection. No jugular venous distention. Neck supple.CVS: Normal heart rate and rhythm. Heart sounds normal. Pulses normal.Respiratory: No respiratory distress. Mildly decreased air movement in the bases bilaterally. Painlessinspiration. Mild rhonchi present in the left lung base posteriorly.Abdomen: Soft and nontender. No organomegaly.Back: Normal inspection.Skin: Skin warm and dry. Normal skin color. No rash. Normal skin turgor.Extremities: Extremities exhibit normal ROM. No lower extremity edema.Neuro: Oriented X 3. No motor deficit. No sensory deficit.PROGRESS AND PROCEDURESCourse of Care: ED care transferred. Case discussed with Dr. Griffith. Brief hx: as per H. Pending items:lab and xray results. Tentative impression: URI, Pneumonia. Expected disposition: discharge from ED.(Electronically signed by Ana Rosa Barboza M.D. 10/08/2020 07:41) Disposition decision: 13:48 10/07/2020.HISTORY OF PRESENT ILLNESS (Patient states for the past 2 days she has had shortness of breath and a headache. States this morning it had gotten worse and she has chills and body aches). 3 Clinical Report - Physicians/Mid Levels [facility] E mergency Department [address] [place] [address] Phone #: ext- [phone] 10/07/2020 06:33 Patient: MAGDY HASSAN Sex: F : 1995 Age: 25yLABS, X-RAYS, AND EKGLaboratory Tests:CT CTA CHEST NONCOR W: (NINA: 10/07/2020 10:03) ( MsgRcvd 10/08/2020 03:52) In ProgressCT CTA CHEST NONCOR WReason(s): dyspnea, +COVIDTRANSPORTATION: WC IV? IV?(Yes) O2? Oxygen?(No) Ro Test Result Flag Units (Reference) CT CTA CHEST NONCOR W//T//W/O [facility] [address] [place] [address] PHONE: [phone] FAX: [phone] -- Name .................. : SONYA CURRAN Acct Number.................. : [id number] ROOM. ................. : [facility] MR Number ................... : [id number] Stay type ............. : E/R Discharge Date......... ... : 10/07/20 Admit Date ......... : 10/07/20 Admit Phys .................... : TAMRA BLANCO Date of ....... : 1995 Family Phys ................... : UNKNOWN Phone .................. : [phone] Age ................................ : 25 Film# .................. .:[id number] Sex ................................. : F -- Unsigned transcriptions are preliminary reports and do not represent a medical or legal document CT CTA CHEST NONCOR W Reason(s): dyspnea, +COVID -- -- -- -- CTA OF THE CHEST WITH AND WITHOUT CONTRAST: -- TECHNIQUE: CT scan of the chest is performed following administration of intravenous contrast. This was listed as a CT angiogram and if this is truly a CT angiogram, the study is quite -- limited. -- COMPARISON: None available. -- -- FINDINGS: There is relatively subtle ground glass opacity in the mid-lung alvarez bilaterally. This is not typical of, but does not exclude COVID-19 pneumonia. The ability to detect the presence of a small amount of calcified pulmonary nodules in this setting is limited. There are at least a few small 2-3 mm noncalcified nodules mostly in the anterior segment of the right lobe (image 45- 46). Clinical correlation and follow up imaging is suggested. There is otherwise a small focus of consolidated opacity in the extreme apex of the superior segment of the left lower lobe, possibly representing atelectasis or further evidence of pneumonia. There is no large parenchymal mass or pleural effusion. -- There is no mediastinal, hilar or axillary adenopathy by CT size criteria. The esophagus is not distended, limiting evaluation. -- No mass is noted in the visuali zed portion of the liver, spleen or adrenal glands within the limits of the current study. -- Evaluation of the visualized skeleton does not demonstrate acute disease. -- -- IMPRESSION: Findings that suggest mild/subtle ground glass opacity bilaterally. This is not typical of but does not exclude COVID-19 pneumonia. Correlate clinically. If this truly is a CT angiogram, intravenous contrast is severely suboptimal. Correlate clinically for need for further evaluation. -- 4 Clinical Report - Physicians/Mid Levels [facility] Emergency Department [address] [place] [address] Phone #: ext- [phone] 10/07/2020 06:33 Patient: MAGDY HASSAN Sex: F : 1995 Age: 25y -- -- Page 1 of 2 [address] [place] [address] PHONE: [phone] FAX: [phone] -- Name .................. : SONYA CURRAN Acct Number.................. : [id number] ROOM. ................. : TR-06 MR Number ................... : [id number] Stay type ............. : E/R Discharge Date......... ... : 10/07/20 Admit Date ......... : 10/07/20 Admit Phys .................... : TAMRA BLANCO Date of ....... : 1995 Family Phys ................... : UNKNOWN Phone .................. : [phone] Age ................................ : 25 Film# .................. .:[id number] Sex ................................. : F -- Unsigned transcriptions are preliminary reports and do not represent a medical or legal document CT CTA CHEST NONCOR W Reason(s): dyspnea, +COVID -- -- While performing the above CT examination, radiation dose reduction was accomplished utilizing automated exposure control, adjusting of the mA and kV based on the patient's body size and/or the use of imperative reconstructive techniques. -- CT dose: 592 mGycm -- Contrast agent in mL: 75 Isovue 370 -- Method of administration: Intravenous -- -- Electronically Reviewed and Signed By BRIANNE COVARRUBIAS SIGNMADONNA, AML -- Transcribe Initials: GARRETT , Transcribe Date: 10/08/20 03:46, Dictation Date: -- -- <<REPDIST>> -- -- -- -- Page 2 of 2 --Chest Portable 1 View: (NINA: 10/07/2020 08:04) ( MsgRcvd 10/07/2020 13:34) In ProgressCHEST PORTABLEReason(s): CoughTRANSPORTATION: WC IV? O2? Oxygen?(Yes) Room: [place] [address] PHONE: [phone] FAX: [phone] Name .................. : SONYA CURRAN Acct Number.................. : [id number] ROOM. ................. : TR-06 MR Number ................... : [id number] Stay type ............. : E/R Discharge Date......... ... : 5 Clinical Report - Physicians/Mid Levels [facility] Emergency Department [address] [place] [address] Phone #: ext- [phone] 10/07/2020 06:33 Patient: MAGDY HASSAN Sex: F : 1995 Age: 25y Admit Date ......... : 10/07/20 Admit Phys .................... : TURRIN BELLA Date of ....... : 1995 Family Phys ................... : UNKNOWN Phone .................. : [phone] Age ................................ : 25 Film# .................. .:[id number] Sex ................................. : F Unsigned transcriptions are preliminary reports and do not represent a medical or legal document CHEST PORTABLE [id number] COMPLETE:10/07/20 08:24 KBO 40220 Reason(s): Cough PORTABLE CHEST, 10/07/20: Prior examination not available. FINDINGS: There is no acute consolidation or infiltrate. A chest PA and lateral was discussed with the patient when stable. The heart is not enlarged. There is no hilar adenopathy. IMPRESSION: No evidence of any acute pulmonary disease. Electronically Reviewed and Signed By DCTNAME , SIGNDATE, AML Transcribe Initials: KIMBERLEE, Transcribe Date: 10/07/20 13:28, Dictation Date: <<REPDIST>> Page 1 of GERSON w Diff: (NINA: 10/07/2020 06:48) ( MsgRcvd 10/07/2020 07:14) Final results Test Result Flag Units (Reference) CBC W/AUTOMATED DIFF COMPLETE BLOOD COUNT WBC 7.8 10/uL (4.2 - 11.0) RBC 4.49 10/uL (4.20 - 5.40) HEMOGLOBIN 13.8 g/dL (12.0 - 16.0) HEMATOCRIT 39.9 % (37.0 - 47.0) MCV 88.9 fL (81.0 - 101) MCH 30.7 pg (27.0 - 34.0) MCHC 34.6 g/dL (31.0 - 36.0) RDW 12.4 % (11.5 - 14.5) PLATELETS 236 10/uL (150 - 450) MPV 11.0 H fL (7.4 - 10.4) NEUT 82.9 H % (37.0 - 80.0) LYMPH 12.6 L % (25.0 - 40.0) MONO 3.2 % (3.0 - 8.0) EOS 0.6 % (0.0 - 7.0) BASO 0.4 % (0.0 - 2.5) %IG 0.3 H % (0.0 - 0.0) %NRBC 0.0 % (0.0 - 0.0) #NEUT 6.47 10/uL (2.00 - 6.90) 6 Clinical Report - Physicians/Mid Levels [facility] Emergency Department [address] [place] [address] Phone #: ext- [phone] 10/07/2020 06:33 Patient: MAGDY HASSAN Sex: F : 1995 Age: 25y #LYMPH 0.98 10/uL (0.60 - 3.40) #MONO 0.25 10/uL (0.00 - 0.90) #EOS 0.05 10/uL (0.00 - 0.70) #BASO 0.03 10/uL (0.00 - 0.20) #IG 0.02 10/uL (0.00 - 0.10) #NRBC 0.00 10/uL (0.00 - 0.00) MANUAL DIFF NOT INDICATED RBC MORPH NOT INDICATEDCMP: (NINA: 10/07/2020 06:48) ( MsgRcvd 10/07/2020 07:59) Final results Test Result Flag Units (Referenc e) COMPREHENSIVE METABOLIC PANEL COMPREHENSIVE METABOLIC PANEL SODIUM 139 mEq/L (134 - 153) POTASSIUM 4.3 mEq/L (3.6 - 5.0) CHLORIDE 105 mEq/L (98 - 107) CO2 26 MEQ/L (22 - 30) GLUCOSE 115 H MG/DL (70 - 99) BUN 10 MG/DL (7 - 21) CREATININE 0.8 MG/DL (0.7 - 1.5) BUN/CREAT 13 (8 - 27) TOTAL PROTEIN 6.3 G/DL (6.3 - 8.2) ALBUMIN 3.9 G/DL (3.9 - 5.0) GLOBULIN 2.4 GM/DL (2.4 - 3.2) A/G RATIO 1.6 (0.8 - 2.0) CALCIUM 8.8 MG/DL (8.4 - 10.2) TOTAL BILI <0.7 MG/DL (0.2 - 1.3) ALKALINE PHOS 68 U/L (38 - 126) SGOT/AST 20 U/L (5 - 40) SGPT/ALT 15 U/L (7 - 56) ANION GAP 8.0 mmol/L (8.0 - 16.0) AGE 25 yrs NON-AA GFR > 60 mL/min AFR AMER GFR >60 mL/min Male GFR Interprentation 20-49 yrs >60 mL/min Eewgvd57-84 yrs >56 mL/min Normal 60-69 yrs >49 mL/min Normal 70-79yrs>42 mL/min Normal 80 and above >35 mL/min Normal Female GFRInterpretation 20-39 yrs >60 mL/min Normal 40-49 yrs >58 mL/minNormal 50-59 yrs >51 mL/min Normal 60-69 yrs >45 mL/min Ijtwrd19-16 yrs >39 mL/min Normal 80 and above >32 mL/min NormalLactic Acid: (NINA: 10/07/2020 06:48) ( MsgRcvd 10/07/2020 07:41) Final results Test Result Flag Units (Reference) LACTIC ACID 1.7 MMOL/L (0.2 - 2.2)Beta-HCG, Qual Serum: (NINA: 10/07/2020 06:48) ( MsgRcvd 10/07/2020 07:41) Final results Test Result Flag Units (Reference) HCG SERUM QUAL NEGATIVE (NORMAL: NEGAT HCG SERUM QL REENTER NEGATIVE (NORMAL: NEGAT { KIT LOT # [id number] ){ KIT EXP DATE03.27.22 ){ PROCEDURAL CONTROL VALID)COVID-19 CAH: (NINA: 10/07/2020 06:55) ( MsgRcvd 10/07/2020 07:29) Final results Test Result Flag Units (Reference) 7 Clinical Report - Physicians/Mid Levels [facility] Emergency Department [address] [place] [address] Phone #: ext- [phone] 10/07/2020 06:33 Patient: MAGDY HASSAN Sex: F : 1995 Age: 25y COVID-19 DETECTED COVID-19 REENTER DETECTED { PROCEDURAL CONTROL VALID KIT LOT # _[id number] 10/07/20.TAD. KIT EXP DATE _10.11.20 10/07/20.TAD. NORMAL RANGE IS NOT DETECTEDNEGATIVE RESULTS SHOULD BE TREATED PRESUMPTIVE AND, IF INCONSISTENT WITHCLINICAL SIGNS AND SYMPTOMS OR NECESSARY FOR PATIENT MANAGEMENT, SHOULD BETESTED WITH DIFFERENT AUTHORIZED OR CLEARED MOLECULAR TESTS. NEGATIVE RESULTSDO NOT PRECLUDE SARS-CoV-2 INFECTION AND SHOULD NOT BE USED THE SOLE BASISFOR PATIENT MANAGEMENT DECISIONS. Chest 2 View: (NINA: 10/07/2020 06:53) ( MsgRcvd 10/07/2020 08:05) Canceled Reason(s): Cough Reason(s): Cough TRANSPORTATION: IV? O2? Oxygen?(No) Room: ED.PROGRESS AND PROCEDURESCourse of Care: Pt is a 25 year old female who presented to the ED for evaluation of her shortness ofbreath. The patient has had a moderate cough productive of clear sputum (x 2 days). She has hadclear sputum and anxiety and experienced sweating episodes. She has had fever of 100.2 F. I receivedsignout from Dr. Barboza. As I took over patient, she was mildly tachycardic. labs reviewed. covid-19positive. cta shows ground glass opacities but not pe. pt was given ivf, steroids, and a ntibiotics. ptinstructed to quarantine and to f/u with pcp via telemedicine. pt felt markedly better. pt was discharged. Patient/family counseled. Disposition: Discharged. Condition: good and stable.CLINICAL IMPRESSION Coronavirus COVID-19.INSTRUCTIONS Take Tylenol (Acetaminophen) or Motrin (Ibuprofen) as needed for fever control. Take medication according to label instructions. (Drink plenty of fluids. return if worse or any new symptoms. It is important to quarantine for 2 weeks. it is important to eat. i sent your prescriptions to the pharmacy on file.). Warnings: Further evaluation is margaret banks. GENERAL WARNINGS: Return or contact your physician immediately if your condition worsens or changes unexpectedly, if not improving as expected, or if other problems arise. Your Current Medications: Your current home medications have been reviewed. 8 Clinical Report - Physicians/Mid Levels [facility] Emergency Department [address] [place] [address] Phone #: ext- [phone] 10/07/2020 06:33 Patient: MAGDY HASSAN [facility]#: [id number] Sex: F : 1995 Age: 25y CONTINUE TAKING THE FOLLOWING MEDICATIONS: Levothyroxine Sodium Oral : Tablet 150 mcg, 1 tablet daily. Prescription Medications: Aerochamber Mini Use 1 device four times a day -- as directed. Dispense 1 device. Refills: 0. Substitution permitted. Pharmacy - [address] ; [place] [address]. . albuterol sulfate HFA 90 mcg/actuation aerosol inhaler Inhale 2 puff four times a day as needed for 10 days -- for wheezing. Dispense 1 inhaler. Refills: 0. Substitution permitted. [facility] - [address] ; [place] [address]. . ondansetron 4 mg disintegrating tablet Take 1 tablet four times a day as needed for 4 days -- prn nausea/vomiting. Dispense 16 tablet. Refills: 0. Substitution permitted. [facility] - [address] ; [place] [address]. . Zithromax Z-Zeferino 250 mg tablet for 5 days -- take 2 tabs by mouth now, than take 1 tab a day x 4 days. #6 RF 0. Dispense 6 tablet. Refills: 0. Substitution permitted. [facility] - [facility] [id number] [place] [address] ; [place] [address]. . prednisone 20 mg tablet Take 3 tablet once a day for 5 days -- Dispense 15 tablet. Refills: 0. Substitution permitted. [facility] - [address] ; [place] [address]. Phone: . Follow-up: Follow up with your doctor telemedicine in two days even if well. Call for an appointment. Reason for referral: evaluation. Summary of care provided to patient via paper. Understanding of the discharge instructions verbalized by patient.(Electronically signed by Marilyn Griffith MD 10/11/2020 19:03) Name Value Range Interpretation Code Description Data Anne Marie rce(s) Supporting Document(s) ID Date Data Source [id number] 10/08/2020 08:02:00 AM EDT [facility] [address] [place] [address] PHONE: [phone] FAX: [phone] Name .................. : SONYA CURRAN Acct Number.................. : [id number] ROOM. ................. : [facility] MR Number ................... : [id number] Stay type ............. : E/R Discharge Date......... ... : 10/07/20 Admit Date ......... : 10/07/20 Admit Phys .................... : TAMRA BLANCO Date of ....... : 1995 Family Phys ................... : UNKNOWN Phone .................. : [phone] Age ................................ : 25 Film# .................. .:[id number] Sex ................................. : F Unsigned transcriptions are preliminary reports and do not represent a medical or legal document CT CTA CHEST NONCOR W&W/O CON 96203 COMPLETE:10/07/20 17:35 MWB 93548 Reason(s): dyspnea, +COVID CTA OF THE CHEST WITH AND WITHOUT CONTRAST: TECHNIQUE: CT scan of the chest is performed following administration of intravenous contrast. This was listed as a CT angiogram and if this is truly a CT angiogram, the study is quite limited. COMPARISON: None available. FINDINGS: There is relatively subtle ground glass opacity in the mid-lung alvarez bilaterally. This is not typical of, but does not exclude COVID-19 pneumonia. The ability to detect the presence of a small amount of calcified pulmonary nodules in this setting is limited. There are at least a few small 2-3 mm noncalcified nodules mostly in the anterior segment of the right lobe (image 45- 46). Clinical correlation and follow up imaging is suggested. There is otherwise a small focus of consolidated opacity in the extreme apex of the superior segment of the left lower lobe, possibly representing atelectasis or further evidence of pneumonia. There is no large parenchymal mass or pleural effusion. There is no mediastinal, hilar or axillary adenopathy by CT size criteria. The esophagus is not distended, limiting evaluation. No mass is noted in the visualized portion of the liver, spleen or adrenal glands within the limits of the current study. Evaluation of the visualized skeleton does not demonstrate acute disease. IMPRESSION: Findings that suggest mild/subtle ground glass opacity bilaterally. This is not typical of but does not exclude COVID-19 pneumonia. Correlate clinically. If this truly is a CT angiogram, intravenous contrast is severely suboptimal. Correlate clinically for need for further evaluation. Page 1 of 2 [facility] [address] [place] [address]. [place] [address] PHONE: [phone] FAX: [phone] Name .................. : SONYA CURRAN Acct Number.................. : [id number] ROOM. ................. : TR- MR Number ................... : [id number] Stay type ............. : E/R Discharge Date......... ... : 10/07/20 Admit Date ......... : 10/07/20 Admit Phys .................... : TAMRA BELLA Date of ....... : 1995 Family Phys ................... : UNKNOWN Phone .................. : [phone] Age ................................ : 25 Film# .................. .:[id number] Sex ................................. : F Unsigned transcriptions are preliminary reports and do not represent a medical or legal document CT CTA CHEST NONCOR W&W/O CON 32866 COMPLETE:10/07/20 17:35 MWB 61888 Reason(s): dyspnea, +COVID While performing the above CT examination, radiation dose reduction was accomplished utilizing automated exposure control, adjusting of the mA and kV based on the patient's body size and/or the use of imperative reconstructive techniques. CT dose: 592 mGycm Contrast agent in mL: 75 Isovue 370 Method of administration: Intravenous Electronically Reviewed and Signed By Santy Pena MD , 10/08/20 08:02, AML Transcribe Initials: GARRETT , Transcribe Date: 10/08/20 03:46, Dictation Date: Copy for: 710 MED REC DISCHARGED Page 2 of 2 Name Value Range Interpretation Code Description Data Anne Marie rce(s) Supporting Document(s) ID Date Data Source [id number] 10/08/2020 08:00:00 AM EDT [facility] [address] [place] [address] PHONE: [phone] FAX: [phone] Name .................. : SONYA CURRAN Acct Number.................. : [id number] ROOM. ................. : [facility] MR Number ................... : [id number] Stay type ............. : E/R Discharge Date......... ... : Admit Date ......... : 10/07/20 Admit Phys .................... : TAMRA BLANCO Date of ....... : 1995 Family Phys ................... : UNKNOWN Phone .................. : [phone] Age ................................ : 25 Film# .................. .:[id number] Sex ................................. : F Unsigned transcriptions are preliminary reports and do not represent a medical or legal document CHEST PORTABLE 48814 COMPLETE:10/07/20 08:24 KBO 85925 Reason(s): Cough PORTABLE CHEST, 10/07/20: Prior examination not available. FINDINGS: There is no acute consolidation or infiltrate. A chest PA and lateral was discussed with the patient when stable. The heart is not enlarged. There is no hilar adenopathy. IMPRESSION: No evidence of any acute pulmonary disease. Electronically Reviewed and Signed By Santy Pena MD , 10/08/20 08:00, AML Transcribe Initials: SSR, Transcribe Date: 10/07/20 13:28, Dictation Date: Copy for: 710 MED REC DISCHARGED Page 1 of 1 Name Value Range Interpretation Code Description Data Anne Marie rce(s) Supporting Document(s) ID Date Data Source [id number] 10/13/2020 10:21:00 AM EDT [facility] [address] Name Value Range Interpretation Code Description Data Anne Marie rce(s) Supporting Document(s) Bacteria identified in Blood by Culture [facility] NO GROWTH AFTER 5 DAYS ID Date Data Source [id number] 10/13/2020 05:00:[address] [facility] Name Value Range Interpretation Code Description Data Anne Marie rce(s) Supporting Document(s) CULTURE BLOOD [facility] _CULTURE BLOOD_ TEST PERFORM ED AT [address] [address] CLIA# [id number] SEE SCANNED REPORT{ PRELIM ID Date Data Source [id number] 10/13/2020 04:59:[address] [facility] Name Value Range Interpretation Code Description Data Anne Marie rce(s) Supporting Document(s) CULTURE BLOOD [facility] _CULTURE BLOOD_ TEST PERFORM ED AT [address] [address] CLIA# [id number] SEE SCANNED REPORT{ PRELIM ID Date Data Source [id number] 10/07/2020 06:55:00 AM EDT [facility] Name Value Range Interpretation Code Description Data Anne Marie rce(s) Supporting Document(s) COVID19 Case rprt DETECTED [facility] This lab was ordered by [facility] and reported by [facility]. ID Date Data Source [id number] 10/07/2020 07:28:[address] [facility] DETECTEDDETECTED{ PROCEDURAL C ONTROL VALID KIT LOT # _[id number] 10/07/20.TAD. KIT EXP DATE _10.11.20 10/07/20.TAD. NORMAL RANGE IS NOT DETECTEDNEGATIVE RESULTS SHOULD BE TREATED PRESUMPTIVE AND, IF INCONSISTENT WITHCLINICAL SIGNS AND SYMPTOMS OR NECESSARY FOR PATIENT MANAGEMENT, SHOULD BETESTED WITH DIFFERENT AUTHORIZED OR CLEARED MOLECULAR TESTS. NEGATIVE RESULTSDO NOT PRECLUDE SARS-CoV-2 INFECTION AND SHOULD NOT BE USED THE SOLE BASISFOR PATIENT MANAGEMENT DECISIONS. Name Value Range Interpretation Code Description Data Anne Marie rce(s) Supporting Document(s) ID Date Data Source [id number] 10/07/2020 07:59:[address] [facility] Name Value Range Interpretation Code Description Data [facility](s) Supporting Document(s) COMPREHENSIVE METABOLIC PANEL [facility] COMPREHENSIVE METABOLIC PANEL Sodium [Moles/volume] in Serum or Plasma 139 mEq/L 134 - 153 [facility] Potassium [Moles/volume] in Serum or Plasma 4.3 mEq/L 3.6 - 5.0 [facility] Chloride [Moles/volume] in Serum or Plasma 105 mEq/L 98 - 107 [facility] Carbon dioxide, total [Moles/volume] in Serum or Plasma 26 MEQ/L 22 - 30 [facility] Glucose [Mass/volume] in Serum or Plasma 115 MG/DL 70 - [address] [facility] BUN 10 MG/DL 7 - 21 [facility] Creatinine [Mass/volume] in Serum or Plasma 0.8 MG/DL 0.7 - 1.5 [facility] BUN/CREAT 13 8 - 27 [facility] Protein [Mass/volume] in Serum or Plasma 6.3 G/DL 6.3 - 8.2 [facility] Albumin [Mass/volume] in Serum or Plasma 3.9 G/DL 3.9 - 5.0 [facility] Globulin [Mass/volume] in Serum by calculation 2.4 GM/DL 2.4 - 3.2 [facility] A/G RATIO 1.6 0.8 - 2.0 [facility] Calcium [Mass/volume] in Serum or Plasma 8.8 MG/DL 8.4 - 10.2 [facility] Bilirubin.total [Mass/volume] in Serum or Plasma <0.7 MG/DL 0.2 - 1.3 [facility] Alkaline phosphatase [Enzymatic activity/volume] in Serum or Plasma 68 U/L 38 - 126 [facility] Aspartate aminotransferase [Enzymatic activity/volume] in Serum or Plasma 20 U/L 5 - 40 [facility] Alanine aminotransferase [Enzymatic activity/volume] in Seru m or Plasma 15 U/L 7 - 56 [facility] Anion gap 3 in Serum or Plasma 8.0 mmol/L 8.0 - 16.0 [facility] AGE 25 yrs [facility] Hospit al NON-AA GFR >60 mL/min [facility] Hosp ital AFR AMER GFR >60 mL/min [facility] Ho spital Male GFR In terprentation 20-49 yrs >60 mL/min Normal 50-59 yrs >56 mL/min Normal 60-69 yrs >49 mL/min Normal 70-79yrs >42 mL/min Normal 80 and above >35 mL/min Normal Female GFR Interpretation 20-39 yrs >60 mL/min Normal 40-49 yrs >58 mL/min Normal 50-59 yrs >51 mL/min Normal 60-69 yrs >45 mL/min Normal 70-79 yrs >39 mL/min Normal 80 and above >32 mL/min Normal ID Date Data Source [id number] 10/07/2020 07:41:[address] [facility] Name Value Range Interpretation Code Description Data Anne Marie rce(s) Supporting Document(s) Lactate [Moles/volume] in Serum or Plasma 1.7 MMOL/L 0.2 - 2.2 [facility] ID Date Data Source [id number] 10/07/2020 07:40:[address] [facility] Name Value Range Interpretation Code Description Data Anne Marie rce(s) Supporting Document(s) HCG SERUM QUAL NEGATIVE NORMAL: NEGATIVE [facility] HCG SERUM QL REENTER NEGATIVE NORMAL: NEGATIVE [facility] { KIT LOT # [id number] ){ KIT EXP DATE 03.27.22 ){ PROCEDURAL CONTROL VALID ) ID Date Data Source [id number] 10/07/2020 07:14:[address] [facility] Name Value Range Interpretation Code Description Data Anne Marie rce(s) Supporting Document(s) CBC W/AUTOMATED DIFF [facility] COMPLETE BLOOD COUNT Leukocytes [#/volume] in Blood by Automated count 7.8 10^3/uL 4.2 - [address] [facility] Erythrocytes [#/volume] in Blood by Automated count 4.49 10^6/uL 4. 20 - 5.40 [facility] Hemoglobin [Mass/volume] in Blood 13.8 g/dL 12.0 - 16.0 [facility] Hematocrit [Volume Fraction] of Blood by Automated count 39.9 % 3 7.0 - 47.0 [facility] Erythrocyte mean corpuscular volume [Entitic volume] by Auto mated count 88.9 fL 81.0 - 101 [facility] Erythrocyte mean corpuscular hemoglobin [Entitic mass] by Automated count 30.7 pg 27.0 - 34.0 [facility] Erythrocyte mean corpuscular hemoglobin concentration [Mass/volume] by Automated count 34.6 g/dL 31.0 - 36.0 [facility] Erythrocyte distribution width [Ratio] by Automated count 12.4 % 11.5 - 14.5 [facility] Platelets [#/volume] in Blood by Automated count 236 10^3/uL 150 - [address] [facility] Platelet mean volume [Entitic volume] in Blood by Automated count 11.0 fL 7.4 - 10.[address] [facility] Neutrophils/100 leukocytes in Blood by Automated count 82.9 % 37. 0 - 80.[address] [facility] Lymphocytes/100 leukocytes in Blood by Manual count 12.6 % 25.0 - 40.[address] [facility] Monocytes/100 leukocytes in Blood by Automated count 3.2 % 3.0 - 8.0 [facility] Eosinophils/100 leukocytes in Blood by Automated count 0.6 % 0.0 - 7.0 [facility] Basophils/100 leukocytes in Blood by Automated count 0.4 % 0.0 - 2.5 [facility] %IG 0.3 % 0.0 - 0.[address] 0.0 % 0.0 - 0.0 [facility] al Neutrophils [#/volume] in Blood by Automated count 6.47 10^3/uL 2.00 - 6.90 [facility] Lymphocytes [#/volume] in Blood by Automated count 0.98 10^3/uL 0.60 - 3.40 [facility] Monocytes [#/volume] in Blood by Automated count 0.25 10^3/uL 0.00 - 0.90 [facility] Eosinophils [#/volume] in Blood by Automated count 0.05 10^3/uL 0.00 - 0.70 [facility] Basophils [#/volume] in Blood by Automated count 0.03 10^3/uL 0.00 - 0.20 [facility] #IG 0.02 10^3/uL 0.00 - 0.10 [facility]spital #NRBC 0.00 10^3/uL 0.00 - 0.00 [facility] MANUAL DIFF NOT INDICATED [facility] RBC MORPH NOT INDICATED [facility] spital ID Date Data Source [id number] 08/30/2020 03:51:[address] [facility] [address] [facility] Emergency Department [address] [place] [address] Phone #: ext- [phone] 08/30/2020 03:49 Patient: MAGDY HASSAN Sex: F : 1995 Age: 25yWEIGHT:94.3 kg HEIGHT:68 inches BMI:31.6ALLERGIES: No Known Drug AllergyCHIEF COMPLAINT: pelvic pain, dysuriaDIAGNOSIS: C/O pelvic painLAB ORDERSOrder Description Priority Entered Acknowledged InitialedUrinalysis (Clean STAT 03:55 08/30/2020 03:56 Eric Flor Victoria Katelyn ;HCG Urine Qual STAT 03:55 08/30/2020 03:56 Celia Flor Victoria Katelyn ;DIAGNOSTIC STUDY ORDERSOrder De scription Priority Entered Acknowledged InitialedMEDICATION/IV/DRIP/FLUID ORDERSOrder Description Priority Entered Acknowledged InitialedToradol IM 60 mg 04:12 08/30/2020 04:16 Chacho(NOW) Lee Yang ;GENERAL ORDERSOrder Description Priority Entered Acknowledged Initialed[Electronically signed by Gracie Flor (05:02 08/30/2020)][Electronically signed by Lee Yang (05:02 08/30/2020)][Electronically locked by Gracie Flor (05:02 08/30/2020)] Name Value Range Interpretation Code Description Data Anne Marie rce(s) Supporting Document(s) ID Date Data Source [id number] 08/30/2020 03:51:[address] [facility] [address] [facility] Emergency Department [address] [place] [address] Phone #: ext- [phone] 08/30/2020 03:49 Patient: MAGDY HASSAN Sex: F : 1995 Age: 25yWeight: 94.3 kgHeight/Length: 68 in.BMI: 31.6ALLERGIES: No Known Drug AllergyThe patient's Home Medications are listed below:CONTINUE TAKING THE FOLLOWING MEDICATIONS: Levothyroxine Sodium Oral (150 mcg) 1 tablet, dailyThe source(s) of the original Home Medication information:Not obtained.The following Medications were given to the patient in the Emergency Department:Toradol [IM] IM 60 mg, administered: 04:15 08/30/2020The following Medications were prescribed to the patient:ibuprofen 600 mg tablet Take 1 tablet four times a day as needed for pain for 10 days -- Dispense 40tablet. Refills: 0. Substitution permitted.Pharmacy - [facility] - [id number] ; [place] [address]. . -- Lee Yang Name Value Range Interpretation Code Description Data Anne Marie rce(s) Supporting Document(s) ID Date Data Source [id number] 08/30/2020 03:51:[address] [facility] [address] [facility] Emergency Department [address] [place] [address] Phone #: ext- [phone] 08/30/2020 03:49 Patient: MAGDY HASSAN Sex: F : 1995 Age: 25yWeight: 94.3 kgHeight/Length: 68 inBMI: 31.6ALLERGIES: No Known Drug Allergy Date/Time Medication Administered Medication OrderedGiven TORADOL [IM] (KETOROLAC Toradol IM 60 mg (NOW)04:15 08/30/2020 TROMETHAMINE)Gracie Flor, Dose: 60 mg IM Name Value Range Interpretation Code Description Data Anne Marie rce(s) Supporting Document(s) ID Date Data Source [id number] 08/30/2020 03:51:[address] [facility] [address] [facility] Emergency Department [address] [place] [address] Phone #: ext- [phone] 08/30/2020 03:49 Patient: MAGDY HASSAN Sex: F : 1995 Age: 25yChronic pelvic pain.INSTRUCTIONS(urinalysis and test were normal. your pelvic pain maybe secondary to endometriosis.followup with your DRUM BUILDER in 5 days if not better).Your Current Medications: Your current home medications have been reviewed.CONTINUE TAKING T HE FOLLOWING MEDICATIONS:Levothyroxine Sodium Oral : Tablet 150 mcg, 1 tablet daily.Prescription Medications:ibuprofen 600 mg tablet Take 1 tablet four times a day as needed for pain for 10 days -- Dispense 40tablet. Refills: 0. Substitution permitted.Pharmacy - [facility] [place] [place] - [id number] ; [place] [address]. .Follow-up:Follow up with your healthcare provider in five days if not better. Reason for referral: evaluation. Summaryof care provided to patient via paper. Screening today revealed the patient's blood pressure to be in thehypertensive stage 2 range. The patient should follow up with a primary care provider for blood pressuremanagement. ADDITIONAL INFORMATIONPelvic Pain, Uncertain Cause [address] [facility] Emergency Department [address] [place] [address] Phone #: ext- [phone] 08/30/2020 03:49 Patient: MAGDY HASSAN Sex: F : 1995 Age: 25yPelvic pain is pain felt in the lowest part of the belly (abdomen) and between the hipbones. The painmay occur suddenly and recently (acute). Or the pain may last for 6 months or longer (chronic).There are many possible causes of pelvic pain. The pain may be due to a problem in the femalereproductive system. Or, it may be due to a problem in the digestive, urinary, or musculoskeletalsystems.Based on your visit today, the exact cause of your pelvic pain is not certain. Your condition does notappear to be serious at this time. But it is important for you to keep watching for any new symptomsor worsening of your condition.General careYour healthcare provider may advise a number of ways to help manage your pain. These can include: Taking evth-tzq-gmswoif pain medicine. Stronger pain medicine may also be prescribed, if needed. Applying heat to the pelvic area. Use a heating pad or a hot pack. Taking a hot bath may also help. Getting plenty of rest. Making certain lifestyle changes. These can include practicing good posture and getting regular exercise. Studies have shown that these changes help reduce pelvic pain in some women. Seeing a physical therapist or pain specialist. These healthcare providers can discuss other ways to manage pain with you.Follow-up care [address] [facility] Emergency Department [address] [place] [address] Phone #: [phone] 08/30/2020 03:49 Patient: MAGDY HASSAN Sex: F : 1995 Age: 25yFollow up with your healthcare provider, or as advised.When to seek medical adviceCall your healthcare provider right away if any of the following occur: Fever of 100.4F or higher, or as directed by your healthcare provider Pain worsens or you have sudden, severe pain or new pain Nausea, vomiting, sweating, or restlessness Dizziness or fainting Unusual vaginal discharge Abnormal vaginal bleeding (especially bleeding after menopause) [id number] [employer] [place] [address]. All rights reserved. This information is not intended as asubstitute for professional medical care. Always follow your healthcare professional's instructions. You have been given the following additional infor sarah: Pelvic Pain, Unknown Cause(Electronically signed by Lee Yang 08/30/2020 05:02) Name Value Range Interpretation Code Description Data Anne Marie rce(s) Supporting Document(s) ID Date Data Source [id number] 08/30/2020 03:51:[address] [facility] 1 Clinical Report - Nurses [facility] Emergency Department [address] [place] [address] Phone #: ext- [phone] 08/30/2020 03:49 Patient: MAGDY HASSAN Sex: F : 1995 Age: 25yTRIAGEArrived by private vehicle. Historian: patient.Acuity: LEVEL 4.Chief Complaint: PELVIC PAIN and FREQUENCY.Alert. No acute distress.Onset. (Since December 2019). ( Patient states she had a miscarriage last December, and since then has feltlike her uterus is "swollen". States she also has urinary frequency. States she saw her OB 2 weeks agoand was told these symptoms were normal. States they have not improved and she was unable to sleep.).SEPSIS SCREEN: SIRS SCREEN NEGATIVE. SEPSIS SCREEN NEGATIVE. No suspected or confirmedsigns of infection present. --03:55 08/30/20 Gracie Flor03:50 08/30/20. BP: 153/89. HR: 88. RR: 17. O2 saturation: 100%. Temp: 97.8 F. Pain level now 09/04.--03:55 08/30/20 Gracie Flor.Weight: 94.3 kg. Height/Length: 68 inches. BMI: 31.6. --03:49 08/30/20 Gracie Flor.MedicationsLevothyroxine Sodium Oral (Tablet 150 mcg) 1 tablet, daily. --03:52 08/30/20 Gracie Flor.AllergiesNo Known Drug Allergy. --03:52 08/30/20 Gracie Flor.PROBLEMS:Back Pain.Headache.Abnormal Test.Abdominal Pain.Miscarriage (disorder).Vaginal Bleeding.Hypothyroidism. --03:52 08/30/20 Gracie Flor.ADDITIONAL SURGERIES:Thyroid Surgery.Tonsillectomy. --03:52 08/30/20 Gracie Flor.HistoryPAST MEDICAL HX: Last normal menstrual period was 2 weeks ago. 2 Clinical Report - Nurses [facility] Emergency Department [address] [place] [address] Phone #: ext- [phone] 08/30/2020 03:49 Patient: MAGDY HASSAN Sex: F : 1995 Age: 25y SOCIAL HX: Never smoker. Occasional alcohol use. No drug use. She was offered HIV testing but declined. Patient education was provided. She was offered hepatitis C testing but declined. Patient education was provided. She has not traveled outside the [place] Infectious disease exposure: No infectious disease exposure. The patient was not exposed to Coronavirus. Patient is not a known carrier of tuberculosis, hepatitis, HIV, MRSA or VRE. Patient is not a known carrier of CRE. ABUSE ASSESSMENT: Abuse assessment. The patient had positive responses to the question(s) "Do you feel safe in your home?" and "Are you afraid to go home?". Abuse denied. No suspicion of abuse. No report of abuse. --03:55 08/30/20 Gracie Flor SELF HARM ASSESSMENT: Self harm assessment was performed. The patient answered "no" to the question(s) "Have you recently felt down, depressed, or hopeless?" and "Do you have thoughts of harming or killing yourself?". NUTRITIONAL RISK ASSESSMENT: The nutritional risk assessment revealed no deficiencies. FUNCTIONAL ASSESSMENT: Functional assessment: no impairments noted. LEARNING NEEDS ASSESSMENT: The learning needs assessment revealed no barriers. FALL RISK ASSESSMENT: Fall risk assessment completed. No risk factors identified. SKIN INTEGRITY ASSESSMENT: Skin integrity risk assessment completed. No skin integrity risk identified. --03:56 08/30/20 Gracie Flor. Interventions Identification band on patient. --03:55 08/30/20 Gracie Flor.PHYSICAL ASSESSMENTAmbulatory to room.GENERAL / NEURO / PSYCH: Alert. Oriented X 4. Appears in no acute distress.HEENT: Mucous membranes are pink.RESPIRATORY: Respirations not labored. Breath sounds within normal limits.CVS: Normal heart rate and rhythm. Capillary refill less than 2 seconds.GI / : Abdomen soft. Abdominal tenderness in the lower abdomen. Bowel sounds within normallimits. She has had frequency of urination.SKIN: Skin is warm and dry. --03:56 08/30/20 Gracie Flor.NURSING PROGRESS NOTESPatient gowned. Reassurance given. Two patient identifiers checked. Call light placed in reach. Siderails up x 2. Bed placed in lowest position. Brakes of bed on. --03:55 08/30/20 Gracie Flor PELVIC EXAM: 3 Clinical Report - Nurses [facility] Emergency Department [address] [place] [address] Phone #: ext- [phone] 08/30/2020 03:49 Patient: MAGDY HASSAN Sex: F : 1995 Age: 25y Pelvic exam performed by ED physician (Dr. Yang). Assisted by one nurse (Amari, RN). Preparation: pelvic tray; patient placed in lithotomy position. Procedure: speculum and bimanual exam. Status post-procedure: she was stable. Patient tolerated the procedure well. --04:07 08/30/20 Gracie Flor 04:15 08/30/2020 Toradol (Ketorolac Tromethamine) IM 60 mg given. Given in the left deltoid. Allergies verified and confirmed 5 rights. Information reviewed with patient including reason for taking this medication, signs of allergic reaction and precautions. Verbalizes understanding. --04:16 08/30/20 Gracie Flor.DISPOSITION / DISCHARGE 04:58 08/30/20. BP: 137/87. HR: 92. RR: 17. O2 saturation: 97%. Temp: 98.7 F. Pain level now 10. --04:58 08/30/20 Gracie Flor Condition at departure: improved. No learning barriers present. Discharge instructions provided and reviewed with the patient. Reviewed warnings. Reviewed medication(s). Reviewed referrals. Patient verbalized understanding. Written instructions provided in [place]ar[place]. The patient was discharged by the physician. She was discharged home and unaccompanied at time of discharge. She left ambulatory and via private vehicle. Patient driving. --04:59 08/30/20 Gracie Flor Departure time: 05:02 08/30/2020. --05:02 08/30/20 Gracie Flor.Locked/Released at 08/30/2020 05:02 by Gracie Flor Name Value Range Interpretation Code Description Data Anne Marie rce(s) Supporting Document(s) ID Date Data Source [id number] 08/30/2020 03:51:[address] [facility] 1 Clinical Report - Physicians/Mid Levels [facility] Emergency Department [address] [place] [address] Phone #: ext- [phone] 08/30/2020 03:49 Patient: MAGDY HASSAN Sex: F : 1995 Age: 25y Time Seen: 03:51 08/30/2020; initial patient contact, initial documentation. Arrived- By private vehicle. Disposition decision: 04:56 08/30/2020.HISTORY OF PRESENT ILLNESS Chief Complaint: PELVIC PAIN and DYSURIA. This started several days and still present (persistent). It was gradual in onset and has been constant. The symptoms are described as severe. Modifying factors. Not worsened by anything. Not relieved by anything. The patient has had pelvic pain. No vaginal pain. The patient has had urinary frequency. Sexually active. (Patient had a miscarriage in december 2019 and since then felt like her uterus has been swollen. she was seen by her OB 2 weeks ago and was told everything is normal but she still has pelvic pain. pain got worse tonight and was not able to sleep so she came to the ER. she also has frequency in urination.patient states that she was placed on a control pills since March. denies recent sexual intercourse.she took tylenol prior to coming to the ER).REVIEW OF SYSTEMSNo nausea, vomiting, diarrhea, headache or fever. No chills, anorexia, eye discomfort, sore throat orcough. No difficulty breathing, chest pain, skin rash, enlarged lymph nodes or joint pain. All othersystems reviewed and are negative.PAST HISTORYSee nurses notes. Problems: Back Pain. Headache. Abdominal Pain. Miscarriage (disorder). Vaginal Bleeding. Additional Surgeries: Thyroid Surgery. Tonsillectomy. Medications: Levothyroxine Sodium Oral (Tablet 150 mcg) 1 tablet, daily. Allergies: No Known Drug Allergy.SOCIAL HISTORY 2 Clinical Report - Physicians/[facility] Emergency Department [address] [place] [address] Phone #: ext- [phone] 08/30/2020 03:49 Patient: MAGDY HASSAN Sex: F : 1995 Age: 25y Never smoker. Occasional alcohol use. No drug use.ADDITIONAL NOTESThe nursing notes have been reviewed.PHYSICAL EXAMVital Signs: 08/30/2020 03:50 BP: 153/89. MAP: 110. HR: 88. RR: 17. O2 saturation: 100%. Temp: 97.8F. Have been reviewed. Oxygen saturation normal.Appearance: Alert. Oriented X3. No acute distress.HEENT: Normal external inspection.ENT: Pharynx normal.CVS: Heart sounds normal.Respiratory: Breath sounds normal. Chest nontender.Abdomen: Soft. Moderate tenderness in the suprapubic area. Bowel sounds normal. Noorganomegaly. No mass.Back: Normal external inspection.: Web Services Developer present (agustina). Speculum and bimanual exam performed. Normal external exam.Speculum exam normal. No vaginal discharge. No vaginal discharge or bleeding. No cervical lesions.Cervical os closed. Bimanual exam normal. Tenderness present on bimanual exam. Uterinetenderness. Mild tenderness with movement of the cervix. Mild right adnexal tenderness; left adnexaltenderness. No right adnexal fullness or mass. No left adnexal fullness or mass. No pelvic mass. Nopelvic mass.Skin: Skin warm and dry. Normal skin color. No rash. Normal skin turgor.Extremities: Extremities nontender. No lower extremity edema.Neuro: Oriented X 3. Mood/affect normal.LABS, X-RAYS, AND EKGLaboratory Tests: Urinalysis: (NINA: 08/30/2020 04:00) ( [facility] 04:10) Final results Test Result Flag Units (Reference) URINALYSIS URINALYSIS SOURCE R COLOR yellow (NORMAL: Yello CLARITY clear (NORMAL: Clear SPEC GRAVITY 1.015 (1.001 - 1.030 pH 6 (5 - 9) GLUCOSE NORM (NORMAL: Negat BILIRUBIN NEG (NORMAL: Negat KETONE NEG (NORMAL: Negat PROTEIN NEG (NORMAL: Negat NITRITE NEG (NORMAL: Negat BLOOD 10 A (NORMAL: Negat LEUK EST NEG (NORMAL: Negat UROBILINOGEN NOR (less than 1.0 MICROSCOPIC See Below WBC 0 - 1 (NORMAL: NONE RBC 1 - 3 (NORMAL: NONE EPITHELIAL MODERATE A (NORMAL: NONE 3 Clinical Report - Physicians/Mid Levels [facility] Emergency Department [address] [place] [address] Phone #: ext- [phone] 08/30/2020 03:49 Patient: MAGDY HASSAN Sex: F : 1995 Age: 25y BACTERIA Trace (NORMAL: NONE MUCOUS Trace (NORMAL: NONE Beta-HCG, Qual Urine: (NINA: 08/30/2020 04:00) ( [facility] 08/30/2020 04:11) Final results Test Result Flag Units (Reference) HCG URINE QUAL NEGATIVE (NORMAL: NEGAT HCG URINE QL REENTER NEGATIVE (NORMAL: NEGAT { KIT LOT # [id number] ){ KIT EXP DATE 01.25.22 ){ PROCEDURAL CONTROL VALID ).PROGRESS AND PROCEDURESCourse of Care: 04:14 08/30/20. test and urinalysis were unremarkable. given toradol for pain 04:55 08/30/20. Patient re evaluated and pain is markedly improved. Patient counseled in person regarding the patient's stable condition, test results, diagnosis and need for follow-up. Patient agrees with plan of care. Disposition: Discharged in good and improved c ondition (04:55). Condition: good and stable. Discharge decision based on the following: patient's condition is improved; patient is ambulatory; patient's exam is improved; no seriously abnormal test results; improving condition on multiple repeat evaluations; social support is adequate; transportation is available; follow-up is available; clinical impression is consistent with outpatient treatment.CLINICAL IMPRESSION Chronic pelvic pain.INSTRUCTIONS (urinalysis and test were normal. your pelvic pain maybe secondary to endometriosis. followup with your DRUM BUILDER in 5 days if not better). Your Current Medications: Your current home medications have been reviewed. CONTINUE TAKING THE FOLLOWING MEDICATIONS: Levothyroxine Sodium Oral : Tablet 150 mcg, 1 tablet daily. Prescription Medications: ibuprofen 600 mg tablet Take 1 tablet four times a day as needed for pain for 10 days -- Dispense 40 tablet. Refills: 0. Substitution permitted. Pharmacy - [facility] [id number] [place] [address] ; [place] [address]. Phone: [phone] Clinical Report - Physicians/Mid Levels [facility] Emergency Department [address] [place] [address] Phone #: ext- [phone] 08/30/2020 03:49 Patient: MAGDY HASSAN Sex: F : 1995 Age: 25y [phone] . Follow-up: Follow up with your healthcare provider in five days if not better. Reason for referral: evaluation. Summary of care provided to patient via paper. Screening today revealed the patient's blood pressure to be in the hypertensive stage 2 range. The patient should follow up with a primary care provider for blood pressure management.(Electronically signed by Lee Ynag 08/30/2020 05:02) Name Value Range Interpretation Code Description Data Anne Marie rce(s) Supporting Document(s) ID Date Data Source [id number] 08/30/2020 04:11:[address] [facility] Name Value Range Interpretation Code Description Data Anne Marie rce(s) Supporting Document(s) HCG URINE QUAL NEGATIVE NORMAL: NEGATIVE [facility] HCG URINE QL REENTER NEGATIVE NORMAL: NEGATIVE [facility] { KIT LOT # [id number] ){ KIT EXP DATE 01.25.22 ){ PROCEDURAL CONTROL VALID ) ID Date Data Source [id number] 08/30/2020 04:10:[address] [facility] Name Value Range Interpretation Code Description Data [facility] rce(s) Supporting Document(s) URINALYSIS [facility] raisa [facility]OURCE [facility] yellow NORMAL: Yellow [facility] CLARITY clear NORMAL: Clear [facility] Specific gravity of Urine by Test strip 1.015 1.001 - 1.030 [facility] pH 6 5 - 9 [facility] al Glucose [Mass/volume] in Urine by Test strip NORM NORMAL: Negat [facility] Bilirubin.total [Presence] in Urine by Test strip NEG NORMAL: Negative [facility] Ketones [Presence] in Urine by Test strip NEG NORMAL: Negative [facility] Protein [Mass/volume] in Urine by Test strip NEG [facility]AL[facility] Nitrite [Presence] in Urine by Test strip NEG NORMAL: Negative [facility] BLOOD 10 NORMAL: Negative [facility] Leukocyte esterase [Presence] in Urine by Test strip NEG MARILYN L: Negative [facility] Urobilinogen [Mass/volume] in Urine by Test strip NOR less juanjo n 1.0 mg/dL [facility] MICROSCOPIC See Below [facility] ital WBC 0 - 1 NORMAL: NONE SEEN [facility] Erythrocytes [#/volume] in Urine by Test strip 1 - 3 NORMAL: NON E SEEN [facility] EPITHELIAL MODERATE NORMAL: NONE SEEN A [facility] Bacteria [Presence] in Urine sediment by Light microscopy Tr matt NORMAL: NONE SEEN [facility] Mucus [Presence] in Urine sediment by Light microscopy Trace NORMAL: NONE SEEN [facility] ID Date Data Source [id number] 06/20/2020 04:48:29 PM EDT [facility] Name Value Range Interpretation Code Description Data Anne Marie rce(s) Supporting Document(s) Progress Note [facility] HWADSt2lDuWGOcDr60/FKBheONDqg9PiAMhzIQu8KIwgKKUwM5XqTMR0iG9wPDI5URvVThFyJuLvDnV9 lbm [file] [id number]+0RJ7eqzJDk5wXT3DlxTF4Onq8bv3MOcwD74LrM8+assistant mechanic [file] [id number] ID Date Data Source [id number] 06/20/2020 04:48:24 PM EDT [facility] Name Value Range Interpretation Code Description Data Anne Marie rce(s) Supporting Document(s) Progress Note [facility] HRYAXb3cQdJSLzWf08/FQRkoWKPpa3FdSMnyYRr4OMwcFVLgD3BsCRK6iC2cKUT6OGpJXeAnMzJaNlP7 lbm [file] bv05VNvRS2sGJXFXg5sMt1Q06PoLsEfyUDEdz+VEzjvkS5W8F4qJyK+yys+PEDIATRIC DERMATOLOGIST+7S5hsgy2r8wQ+iaxuE [file] [id number]XQ6BEVx== ID Date Data Source [id number] 05/20/2020 09:40:00 [place] [address] PHONE: [phone] FAX: [phone] Name .................. : SONYA CURRAN Acct Number.................. : [id number] ROOM. ................. : TR-02 MR Number ................... : [id number] Stay type ............. : E/R Discharge Date......... ... : 05/20/20 Admit Date ......... : 05/20/20 [facility] .................... [facility] Date of ....... : 1995 Family Phys ................... : UNKNOWN Phone .................. : [phone] Age ................................ : 24 Film# .................. .:[id number] Sex ................................. : F Unsigned transcriptions are preliminary reports and do not represent a medical or legal document CT LUMBAR SP W/O CONT [id number] COMPLETE:05/20/20 20:05 DLA 4990 Reason(s): LBP CT OF THE LUMBAR SPINE WITHOUT CONTRAST: INDICATION: Low back pain. FINDINGS: Alignment is maintained. Anterior vertebral body heights are maintained. There is no evidence of fracture or dislocation. At L4-5, there is a mild to moderate circumferential disc bulge causing mild bilateral neuroforaminal narrowing. At L5-S1, there is a mild circumferential disc bulge causing mild to moderate bilateral neuroforaminal narrowing. IMPRESSION: 1. No acute osseous abnormality of the lumbar spine. 2. Degenerative disc disease at L4-5 and L5-S1 causing mild to moderate neuroforaminal narrowing. While performing the above CT examination, radiation dose reduction was accomplished utilizing automated exposure control, adjusting of the mA and kV based on the patient's body size and/or the use of imperative reconstructive techniques. CT dose: 464.3 mGycm Electronically Reviewed and Signed By Niraj Green M.D. , 05/21/20 14:07, AZY Transcribe Initials: DZ , Transcribe Date: 05/20/20 21:40, Dictation Date: Page 1 of [address] [place] [address] PHONE: [phone] FAX: [phone] Name .................. : SONYA CURRAN Acct Number.................. : [id number] ROOM. ................. : TR-02 MR Number ................... : [id number] Stay type ............. : E/R Discharge Date......... ... : 05/20/20 Admit Date ......... : 05/20/20 Admit Phys .................... : [facility] Date of ....... : 1995 Family Phys ................... : UNKNOWN Phone .................. : [phone] Age ................................ : 24 Film# .................. .:[id number] Sex ................................. : F Unsigned transcriptions are preliminary reports and do not represent a medical or legal document CT LUMBAR SP W/O CONT [id number] COMPLETE:05/20/20 20:05 DLA 4990 Reason(s): LBP Copy for: SUSI ARMENDARIZ via fax Copy for: EMERGENCY DEPT via modem Copy for: 710 MED REC DISCHARGED Page 2 of 2 Name Value Range Interpretation Code Description Data Anne Marie rce(s) Supporting Document(s) ID Date Data Source [id number] 05/20/2020 06:59:[address] [facility] [address] [facility] Emergency Department [address] [place] [address] Phone #: ext- [phone] 05/20/2020 18:49 Patient: MAGDY HASSAN Sex: F : 1995 Age: 24yWEIGHT:88.4 kg (S) HEIGHT:68 inches (S) BMI:29.6ALLERGIES: No Known Drug AllergyCHIEF COMPLAINT: back pain, chronic back painDIAGNOSIS: Headache, BackacheLAB ORDERSOrder Description Priority Entered Acknowledged InitialedCBC w Diff STAT 19:18 021 19:22 Rene Hinojosa R.N.;CMP STAT 19:18 05/20/2020 19:22 Rene HinojosaNNicolás LOPEZ;Beta-HCG, Qual STAT 19:18 05/20/2020 19:22 Ashish,Urine Rene LOPEZ;Lactic Acid STAT 19:18 05/20/2020 19:22 Rene Hinojosa R.N.;Lipase STAT 19:18 05/20/2020 19:22 Rene Hinojosa R.N.;PT/PTT STAT 19:18 05/20/2020 19:22 Rene Hinojosa.N. PA;Urinalysis (Clean STAT 19:18 05/20/2020 19:22 Ashish,Catch) Rene Mojica R.N. PA;DIAGNOSTIC STUDY ORDERSOrder Description Priority Entered Acknowledged InitialedCT LUMBAR SP STAT 19:18 05/20/2020 Ack'd: 19:22 20:18 Ashish,W/O CONT Galina De Dios R.N.(Oxygen?(No)) PA; R.N.(IV?(Yes)) Reason for Study: LBPMEDICATION/IV/DRIP/FLUID ORDERS [address] [facility] Emergency Department [address] [place] [address] Phone #: ext- [phone] 05/20/2020 18:49 Patient: MAGDY HASSAN Sex: F : 1995 Age: 24yOrder Description Priority Entered Acknowledged InitialedBenadryl 25 mg IVP 19:18 05/20/2020 Ack'd: 19:32 20:19 Hinojosa,X1 dose: 25 mg Galina De Dios R.N.(NOW x1) PA; R.N.Reglan 10 mg IVP 19:18 05/20/2020 Ack'd: 19:32 20:19 Hinojosa,X1 dose: 10 mg Galina De Dios R.N.(NOW x1) PA; R.N.Ofirmev IV 1000 mg 19:18 05/20/2020 Ack'd: 19:32 19:41 Ashish,(NOW x1, Infuse Galina De Dios R.N.over 15 minutes) PA; R.N.NS IV 1000 mL 19:18 05/20/2020 Ack'd: 19:32 19:40 Ashish,Bolus: : Bolus 1000 Galina De Dios R.N.mL (X1) PA; R.N.GENERAL ORDERSOrder Description Priority Entered Acknowledged InitialedSaline Lock 19:18 05/20/2020 19:22 Rene Hinojosa R.N.;[Electronically signed by Ender Bates (21:14 05/20/2020)][Electronically signed by Rene Scott (22:29 05/20/2020)][Electronically locked by Ender Bates (21:14 05/20/2020)] Name Value Range Interpretation Code Description Data Anne Marie rce(s) Supporting Document(s) ID Date Data Source [id number] 05/20/2020 06:59:[address] [facility] [address] [facility] Emergency Department [address] [place] [address] Phone #: ext- [phone] 05/20/2020 18:49 Patient: MAGDY HASSAN Sex: F : 1995 Age: 24yWeight: 88.4 kgHeight/Length: 68 in.BMI: 29.6ALLERGIES: No Known Drug AllergyThe patient's Home Medications are listed below:CONTINUE TAKING THE FOLLOWING MEDICATIONS: Levothyroxine Sodium Oral (150 mcg) 1 tablet, dailyThe source(s) of the original Home Medication information:Not obtained.The following Medications were given to the patient in the Emergency Department:NS [IV] IV Fluids bolus 1000 mL wide open, administered: 19:35 05/20/2020Ofirmev IV bolus 0, then 1000mg, administered: 19:36 05/20/2020enadryl [IVP] IVP 25 mg diluted in NS 10 mL, administered: 20:08 05/20/2020eglan [IVP] IVP 10 mg, administered: 20:14 05/20/2020The following Medications were prescribed to the patient:IBU 800 mg tablet Take 1 tablet three times a day for 15 days -- Dispense 45 tablet. Refills: 0.Substitution permitted.Pharmacy - [facility] - [id number] [facility] [facility] ; [place] [address]. .Medrol (Zeferino) 4 mg tablets in a dose pack Take 1 tablet as directed for 6 days -- Dispense 1 pack.Refills: 0. Substitution permitted.Pharmacy - [facility] - [id number] [facility] [address] ; [place] [address]. FaxNumber: .methocarbamol 500 mg tablet Take 1 tablet three times a day for 10 days -- Dispense 30 tablet. Refills:0. Substitution permitted. [address] [facility] Emergency Department [address] [place] [address] Phone #: ext- [phone] 05/20/2020 18:49 Patient: MAGDY HASSAN Sex: F : 1995 Age: 24yPharmacy - [place] [id number] [facility] ; [place] [address]. . -- JOHN Morris Name Value Range Interpretation Code Description Data Anne Marie rce(s) Supporting Document(s) ID Date Data Source [id number] 05/20/2020 06:59:[address] [facility] [address] [facility] Emergency Department [address] [place] [address] Phone #: kla- [phone] 05/20/2020 18:49 Patient: MAGDY HASSAN Sex: F : 1995 Age: 24yWeight: 88.4 kgHeight/Length: 68 inBMI: 29.6ALLERGIES: No Known Drug Allergy Date/Time Medication Administered Medication OrderedGiven BENADRYL [IVP] (DIPHENHYDRAMINE Benadryl 25 mg IVP X1 dose: 2520:08 05/20/2020 HCL) mg (NOW x1)Galina Hinojosa R.NNicolás Dose: 25 mg IVP In: NS 10 mL Site: #1 right ACGiven REGLAN [IVP] (METOCLOPRAMIDE Reglan 10 mg IVP X1 dose: 10 mg20:14 05/20/2020 HCL) (NOW x1)Galina Hinojosa R.N. Dose: 10 mg IVP Site: #1 right ACStart Ofirmev * Ofirmev IV 1000 mg (NOW x1,19:36 05/20/2020 Dose: 1000mg * IV Infuse over 15 minutes)Galina Hinojosa RJhon----Stop19:51 05/20/2020Galina Hinojosa R.N.Start NS [IV] NS IV 1000 mL Bolus: : Bolus 287831:35 05/20/2020 Dose: IV Fluids mL (X1)Galina Hinojosa R.N. Bolus: 1000 mL wide open---- Dispensed: 1000 mL bagStop Site: #1 right AC21:00 1BEnder treadwell, Name Value Range Interpretation Code Description Data Anne Marie rce(s) Supporting Document(s) ID Date Data Source [id number] 05/20/2020 06:59:[address] [facility] [address] [facility] Emergency Department [address] [place] [address] Phone #: ext- [phone] 05/20/2020 18:49 [facility]ASSAN [id number] Sex: F : 1995 Age: 24yEpisodic tension headache- resistant to treatment.Acute nontraumatic lumbar back pain associated with muscle strain; disc herniation in the lumbar spine. Noradiculopathy, sciatica or neurological deficit.INSTRUCTIONSWarnings: GENERAL WARNINGS: Return or contact your physician immediately if your conditionworsens or changes unexpectedly, if not improving as expected, or if other problems arise.SPECIFICALLY, return if you develop weakness of the foot or leg, numbness, tingling or incontinence offeces (loss of bowel control) or urine (loss of bladder control); or if there is no improvement in the pain.Your Current Medications: Your current home medications have been reviewed.CONTINUE TAKING THE FOLLOWING MEDICATIONS:Levothyroxine Sodium Oral : Tablet 150 mcg, 1 tablet daily.Prescription Medications:IBU 800 mg tablet Take 1 tablet three times a day for 15 days -- Dispense 45 tablet. Refills: 0.Substitution permitted.Pharmacy - [facility] ; [place] [address]. FaxNumber: .Medrol (Zeferino) 4 mg tablets in a dose pack Take 1 tablet as directed for 6 days -- Dispense 1 pack.Refills: 0. Substitution permitted.[facility] [address] [facility] ; [place] [address]. .methocarbamol 500 mg tablet Take 1 tablet three times a day for 10 days -- Dispense 30 tablet. Refills:0. Substitution permitted.Pharmacy - [facility] [address] [facility] ; [place] [address]. .Follow-up:Follow up with your doctor. Call for the next available appointment. Reason for referral: evaluation,treatment and refer to Physical Therapy, MRI and Orthopedics if symptoms persist.. Summary of careprovided to patient.Understanding of the discharge instructions verbalized by patient. [address] [facility] Emergency Department [address] [place] [address] Phone #: ext- [phone] 05/20/2020 18:49 Patient: MAGDY HASSAN Sex: F : 1995 Age: 24y ADDITIONAL INFORMATIONBack Pain (Acute or Chronic)Back pain is one of the most common problems. The good news is that most people feel better in 1 to2 weeks, and most of the rest in 1 to 2 months. Most people can remain active.People who have pain describe it differently--not everyone is the same. The pain can be sharp, stabbing, shooting, aching, cramping or burning. Movement, standing, bending, lifting, sitting, or walking may worsen pain. It can be limited to one spot or area, or it can be more generalized. It can spread upwards, to the front, or go down your arms or legs (sciatica). [address] [facility] Emergency Department [address] [place] [address] Phone #: ext- [phone] 05/20/2020 18:49 Patient: MAGDY HASSAN Sex: F : 1995 Age: 24y It can cause muscle spasm.Most of the time, mechanical problems with the muscles or spine cause the pain. Mechanicalproblems are usually caused by an injury to the muscles or ligaments. Illness can cause back pain,but it's usually not caused by a serious illness. Mechanical problems include: Physical activity such as sports, exercise, work, or normal activity Overexertion, lifting, pushing, pulling incorrectly or too aggressively Sudden twisting, bending, or stretching from an accident, or accidental movement Poor posture Stretching or moving wrong, without noticing pain at the time Poor coordination, lack of regular exercise (check with your doctor about this) Spinal disc disease or arthritis StressPain can also be related to , or illness like appendicitis, bladder or kidney infections, pelvicinfections, and many other things.Acute back pain usually gets better in 1 to 2 weeks. Back pain related to disk disease, arthritis in thespinal joints, or narrowing of the spinal canal (spinal stenosis) can become chronic and last formonths or years.Unless you had a physical injury such as a car accident or fall, X-rays are usually not needed for thefirst assessment of back pain. If pain continues and does not respond to medical treatment, you mayneed X-rays and other tests.Home careTry this home care advice: When in bed, try to find a position of comfort. A firm mattress is best. Try lying flat on your back with pillows under your knees. You can also try lying on your side with your knees bent up toward your chest and a pillow between your knees. At first, don't try to stretch out the sore spots. If there is a strain, it's not like the good soreness you get after exercising without an injury. In this case, stretching may make it worse. Don't sit for long periods, as in a long car ride or during other travel. This puts more stress on the lower back than standing or walking. During the first 24 to 72 hours after an acute injury or flare up of chronic back pain, apply an [address] [facility] Emergency Department [address] [place] [address] Phone #: ext- [phone] 05/20/2020 18:49 Patient: MAGDY HASSAN Sex: F : 1995 Age: 24y ice pack to the painful area for 20 minutes and then remove it for 20 minutes. Do this over a period of 60 to 90 minutes or several times a day. This will reduce swelling and pain. Wrap the ice pack in a thin towel or ara stic to protect your skin. You can start with ice, then switch to heat. Heat (hot shower, hot bath, or heating pad) reduces pain and works well for muscle spasms. Heat can be applied to the painful area for 20 minutes then remove it for 20 minutes. Do this over a period of 60 to 90 minutes or several times a day. Don't sleep on a heating pad. It can lead to skin lyons or tissue damage. You can alternate ice and heat therapy. Talk with your doctor about the best treatment for your back pain. Therapeutic massage can help relax the back muscles without stretching them. Be aware of safe lifting methods and don't lift anything without stretching first.MedicinesTalk to your doctor before using medicine, especially if you have other medical problems or are takingother medicines. You may use ezby-orl-bdrzthg medicine as directed on the bottle to control pain, unless another pain medicine was prescribed. If you have chronic conditions like diabetes, liver or kidney disease, stomach ulcers, or gastrointestinal bleeding, or are taking blood thinners, talk to your doctor before taking any medicine. Be careful if you are given a prescription medicines, narcotics, or medicine for muscle spasms. They can cause drowsiness, affect your coordination, reflexes, and judgement. Don't drive or operate heavy machinery.Follow-up careFollow up with your healthcare provider, or as advised.If X-rays were taken, you will be told of any new findings that may affect your careCall 911Call 911 if any of the following occur: Trouble breathing Confusion Very drowsy or trouble awakening Fainting or loss of consciousness [address] [facility] Emergency Department [address] [place] [address] Phone #: ext- [phone] 05/20/2020 18:49 Patient: MAGDY HASSAN Sex: F : 1995 Age: 24y Rapid or very slow heart rate Loss of bowel or bladder controlWhen to seek medical adviceCall your healthcare provider right away if any of these occur: Pain becomes worse or spreads to your legs Weakness or numbness in one or both legs Numbness in the groin or genital area [employer] [address] [place] [address]. All rights reserved. This information is not intended as asubstitute for professional medical care. Always follow your healthcare professional's instructions.Tension HeadacheA muscle tension headache is a very common cause of head pain. It's also called a stress headache.When some people are under stress, they tense the muscles of their shoulder, neck, and scalpwithout knowing it. If this tension lasts long enough, a headache can occur. A tension headache canbe quite painful. It can last for hours or even days.Home careFollow these tips when caring for yourself at home: [address] [facility] Emergency Department [address] [place] [address] Phone #: ext- [phone] 05/20/2020 18:49 Patient: MAGDY HASSAN Sex: F : 1995 Age: 24y [address] drive yourself home if you were given pain medicine for your headache. Instead, have someone else drive you home. Try to sleep when you get home. You should feel much better when you wake up. Put heat on the back of your neck to help ease neck spasm.How to prevent tension-type headaches Figure out what is causing stress in your life. Learn new ways to handle your stress. Ideas include regular exercise, biofeedback, self-hypnosis, yoga, and meditation. Talk with your healthcare provider to find out more information about managing stress. Many books and digital media are also available on this subject. Take time out at the first sign of a tension headache, if possible. Take yourself out of the stressful situation. Find a quiet, comfortable place to sit or lie down and let yourself relax. Heat and deep massage of the tight areas in the neck and shoulders may help ease muscle spasm. You may also get relief from a medicine such as acetaminophen, ibuprofen, naproxen, or a prescribed muscle relaxant.Follow-up careFollow up with your healthcare provider, or as advised. Talk with your provider if you have frequentheadaches. He or she can figure out a treatment plan. Ask if you can schmitt ve medicine to take at homethe next time you get a bad headache. This may keep you from having to visit the emergencydepartment in the future. You may need to see a headache specialist (neurologist) if you continue tohave headaches.When to seek medical adviceCall your healthcare provider right away if any of these occur: Your head pain gets worse during sexual intercourse or strenuous activity Your head pain doesn't get better within 24 hours You aren't able to keep liquids down (repeated vomiting) Fever of 100.4F (38C) or higher, or as directed by your healthcare provider Stiff neck Extreme drowsiness, confusion, or fainting Dizziness or dizziness with spinning sensation (vertigo) Weakness in an arm or leg or one side of your face [address] [facility] Emergency Department [address] [place] [address] Phone #: [phone]- [phone] 05/20/2020 18:49 Patient: MAGDY HASSAN Sex: F : 1995 Age: 24y You have trouble speaking Your vision changes [id number] [employer] [address] [place] [address], [place] [address]. All rights reserved. This information is not intended as asubstitute for professional medical care. Always follow your healthcare professional's instructions. You have been given the following additional information: Back Pain (Acute or Chronic) Headache, Tension(Electronically signed by JOHN Morris 05/20/2020 22:29) Name Value Range Interpretation Code Description Data Anne Marie rce(s) Supporting Document(s) ID Date Data Source [id number] 05/20/2020 06:59:[address] [facility] 1 Clinical Report - Nurses [facility] Emergency Department [address] [place] [address] Phone #: ext- [phone] 05/20/2020 18:49 Patient: MAGDY HASSAN Sex: F : 1995 Age: 24yTRIAGEArrived by private vehicle. Historian: patient.Triage time: 18:52 05/20/2020. Acuity: LEVEL 4.Chief Complaint: BACK PAIN.18:52 05/20/20. Alert. No acute distress.Onset. (4 months ago). ( Headache since 299 Low back pain since December "when felt pop/pain"when, had miscarriage. "Thinks have loss of bladder control occasionally x 1 week"). She has hadnumbness of the right arm and hand and left arm and hand w/ tingling (x 3 days). She has had lower backpain (across low back radiates to left shoulder blade). She has had a throbbing global headache. Theheadache has been associated with nausea and photophobia. No vomiting. No history of recent trauma.Treatment CONSTRUCTION [employer]ADES [employer]OR:None.SEPSIS SCREEN: SIRS SCREEN NEGATIVE. SEPSIS SCREEN NEGATIVE. No suspected or confirmedsigns of infection present. --19:04 05/20/20 Ava Tate RN18:52 05/20/20. BP: 149/77. MAP: 101. HR: 110. RR: 18. O2 saturation: 99% on room air. Temp: 98.7 F.Pain level now: 09/04. --19:04 05/20/20 Ava Tate RN.Weight: 88.4 kg stated. Height/Length: 68 inches Per Patient. BMI: 29.6. --18:51 05/20/20 CECE Hong.MedicationsLevothyroxine Sodium Oral (Tablet 150 mcg) 1 tablet, daily. --19:00 05/20/20 Ava Tate RN.AllergiesNo Known Drug Allergy. --19:00 05/20/20 Ava Tate RN.PROBLEMS:Hypothyroidism. --19:16 05/20/20 Shilpa Morris following entry was modified by JOHN Morris, 19:16 05/20/20Hypothyroidism. --19:00 05/20/20 Ava Tate RN.ADDITIONAL SURGERIES:Thyroid Surgery.Tonsillectomy. --19:00 05/20/20 Ava Tate RN. 2 Clinical Report - Nurses [facility] Emergency Department [address] [place] [address] Phone #: ext- [phone] 05/20/2020 18:49 Patient: MAGDY HASSAN Sex: F : 1995 Age: 24y History 18:52 05/20/20. PAST MEDICAL HX: Tetanus status: up-to-date. Immunizations: up-to-date. Last normal menstrual period- May 05. SOCIAL HX: Never smoker. No alcohol use or drug use. She was offered HIV testing but declined and hepatitis C testing but declined. She has not traveled outside the [place] Infectious disease exposure: No infectious disease exposure. (Negative COVID screen). Patient is not a known carrier of tuberculosis, hepatitis, HIV, MRSA or CRE. SELF HARM ASSESSMENT: Self harm assessment was performed. The patient answered "no" to the question(s) "Do you have thoughts of harming or killing yourself?" and "Have you recently had thoughts about harming or killing others?". ABUSE ASSESSMENT: Abuse assessment. The patient had positive responses to the question(s) "Do you feel safe in your home?" (yes). Abuse denied. No suspicion of abuse. No report of abuse. NUTRITIONAL RISK ASSESSMENT: The nutritional risk assessment revealed no deficiencies. FUNCTIONAL ASSESSMENT: Functional assessment: no impairments noted. LEARNING NEEDS ASSESSMENT: The learning needs assessment revealed no barriers. FALL RISK ASSESSMENT: Fall risk assessment completed. Risk factors identified include severe pain. Fall interventions initiated. Patient placed on stretcher. Side rails up x2. Bed in low position. Brakes on. Patient visible from nurses' station and identified as a fall risk by chart flagged. Call light in reach of patient. Instructed not to get up without assistance. Instructions given to patient. Verbalizes understanding. SKIN INT EGRITY ASSESSMENT: Skin integrity risk assessment completed. No skin integrity risk identified. --19:04 05/20/20 Ava Tate RN. Interventions 18:52 05/20/20. Identification band on patient. To treatment room. Ambulatory by hospital staff. to room 2. --19:04 05/20/20 Ava Tate RN.PHYSICAL ASSESSMENTAmbulatory to room.GENERAL / NEURO / PSYCH: Alert. Oriented X 4. Appears in no acute distress.RESPIRATORY: Respirations not labored. Breath sounds within normal limits.CVS: Normal heart rate and rhythm. Capillary refill less than 2 seconds.EXTREMITIES: Limited ROM present. Sensation intact in ex tremities.BACK: Normal inspection of the neck and back. Limited ROM of the back. Vertebral point tendernessover the lumbar spine. --19:12 05/20/20 Galina Hinojosa R.N. 3 Clinical Report - Nurses [facility] Emergency Department [address] [place] [address] Phone #: ext- [phone] 05/20/2020 18:49 Patient: MAGDY HASSAN Sex: F : 1995 Age: 24yNURSING PROGRESS NOTES18:52 05/20/20. Patient gowned. Head of bed elevated. Two patient identifiers checked. Call lightplaced in reach. Side rails up. Bed placed in lowest position. Brakes of bed on. Patient ready forevaluation- ED physician and PA notified. --19:04 05/20/20 Ava Tate RN 19:27 05/20/2020 Site #1 started via IV in the right antecubital space with an 20g angiocath; one attempt. Blood drawn: rainbow set and blood bank tube. Labeled in the presence of the patient and sent to the lab. Saline lock flushed with 10 mL saline. --19:32 05/20/20 Galina Hinojosa R.N. 19:35 05/20/2020 Started bag #1 1000 mL IV Fluids NS; bolus of 1000 mL wide open via site #1 via IV pump. Allergies verif ied and confirmed 5 rights. IV patency established. IV site checked: no pain, redness, or swelling. IV flushed thoroughly pre- and post-medication administration. Information reviewed with patient including reason for taking this medication, signs of allergic reaction and precautions. Verbalizes understanding. --19:40 05/20/20 Galina Hinojosa R.N. 19:36 05/20/2020 Ofirmev * IV 1000mg infuse over 15 min --19:41 05/20/20 Galina Hinojosa R.N. 19:51 05/20/2020 Ofirmev IV Discontinued: bag #1 infused. Total amount infused: 100ml mL. IV patency established. IV site checked: no pain, redness, or swelling. IV flushed thoroughly. --20:20 05/20/20 Galina Hinojosa R.N. 20:08 05/20/2020 Benadryl (diphenhydrAMINE HCl) IVP 25 mg given diluted in NS 10mL over 3 minute(s) via site #1. Allergies verified and confirmed 5 rights. IV patency established. IV site checked: no pain, redness, or swelling. IV flushed thoroughly pre- and post-medication administration. IVP given by RN. Information reviewed with patient including reason for taking this medication, signs of allergic reaction, precautions and sedative warning. Verbalizes understanding. --20:19 05/20/20 Galina Hinojosa R.N. 20:14 05/20/2020 Reglan (Metoclopramide HCl) IVP 10 mg given over 5 minute(s) via site #1. Allergies verified and confirmed 5 rights. IV patency established. IV site checked: no pain, redness, or swelling. IV flushed thoroughly pre- and post-medication administration. IVP given by RN. Information reviewed with patient including reason for taking this medication, signs of allergic reaction and precautions. Verbalizes understanding. --20:19 05/20/20 Galina Hinojosa R.N. 21:00 05/20/2020 IV Fluids NS via IV site #1 Discontinued: bag #1 infused upon discharge. Total amount infused: 1000 mL. IV patency established. IV site checked: no pain, redness, or swelling. IV flushed thoroughly. --21:13 05/20/20 Ender Bates.DISPOSITION / DISCHARGE Condition at departure: stable. No learning barriers present. Discharge instructions provided and reviewed with the patient. Reviewed warnings (worsening of condition). Reviewed medication(s) side effects, precautions, dosing and course information. Prescription(s) sent electronically to pharmacy (medrol, methocarbamol, ibuprophen). Treatments reviewed (PT). Reviewed referral to a primary care physician. Visit overview provided to. Patient verbalized understanding. Written instructions provided in 4 Clinical Report - Nurses [facility] Emergency Department [address] [place] [address] Phone #: ext- [phone] 05/20/2020 18:49 Patient: MAGDY HASSAN Sex: F : 1995 Age: 24y [place]. The patient was discharged by the physician administrative assistant. She was discharged home. She left ambulatory and via private vehicle. Patient driving. --21:06 05/20/20 Ender Bates 21:02 05/20/20. BP: 115/55 taken on the left arm, via an automated monitor, while sitting. MAP: 75. HR: 95 (regular, normal rate and strong). RR: 16 (regular, unlabored and normal). O2 saturation: 100% on room air. Temp: 98.1 F (oral). Pain level now: 07/05. --21:06 05/20/20 Ender Bates 21:07 05/20/2020 Site #1 removed upon discharge. Manual pressure and pressure dressing applied. --21:07 05/20/20 Ender Bates.Locked/Released at 05/20/2020 21:14 by Ender Bates Name Value Range Interpretation Code Description Data Anne Marie rce(s) Supporting Document(s) ID Date Data Source [id number] 0001 05/20/2020 06:59:[address] [facility] 1 Clinical Report - Physicians/Mid Levels [facility] Emergency Department [address] [place] [address] Phone #: ext- [phone] 05/20/2020 18:49 Patient: MAGDY HASSAN Sex: F : 1995 Age: 24y Time Seen: 19:10 05/20/2020. Arrived- By private vehicle. Historian- patient.HISTORY OF PRESENT ILLNESS Chief Complaint: BACK PAIN and CHRONIC BACK PAIN. Headache. Onset- LBP sine Dec, x 2-3 days; Headache since 030 Low back pain since December "when felt pop/pain"when , had miscarriage. "Thinks have loss of bladder control occasionally x 1 week"). She has had numbness of the right arm and hand and left arm and hand w/ tingling (x 3 days). She has had lower back pain (across low back radiates to left shoulder blade). She has had a throbbing global headache. The headache has been associated with nausea and ph otophobia. No vomiting. No history of recent trauma. It is described as being moderate in degree and in the area of the mid lumbar spine. The quality is noted to be aching, "pain" and similar to prior episodes. No radiation. Mild bladder dysfunction. The bladder dysfunction is described as incontinence. No bowel dysfunction, sensory loss or motor loss. Patient denies an injury. No injury to the head or neck. Similar symptoms previously. Patient has had similar symptoms several times. Recent medical care: The patient was seen recently in a clinic.REVIEW OF SYSTEMSLast normal menstrual period- May 05. No fever, chills, eye irritation, difficulty with urination or urinaryfrequency. No hematuria, depression, sore throat, cough or difficulty breathing. No chest pain,abdominal pain, vomiting, diarrhea or black stools. No bloody stools. The patient has had a headacheand nausea.PAST HISTORYThe patient has had prior back pain. Additional Surgeries: Thyroid Surgery. Tonsillectomy. Medications: Levothyroxine Sodium Oral (Tablet 150 mcg) 1 tablet, daily. Allergies: No Known Drug Allergy.SOCIAL HISTORYNever smoker. Occasional alcohol use. No drug use.PHYSICAL EXAM 2 Clinical Report - Physicians/[facility] Emergency Department [address] [place] [address] Phone #: ext- [phone] 05/20/2020 18:49 Patient: MAGDY HASSAN Sex: F : 1995 Age: 24y Vital Signs: 05/20/2020 18:52 BP: 149/77. MAP: 101. HR: 110. RR: 18. O2 saturation: 99% on room air. Temp: 98.7 F. Pain level now: 09/04. Have been reviewed as abnormal. Hypertensive. Tachycardic. Oxygen saturation normal. Appearance: Alert. No acute distress. HEENT: Normal external inspection. Eyes: Pupils equal, round and reactive to light. ENT: Ears normal. Pharynx normal. Neck: Normal inspection. Neck nontender. CVS: Heart sounds normal. Pulses normal. Respiratory: No respiratory distress. Painless inspiration. Abdomen: No visible injury. Soft and nontender. Bowel sounds normal. No organomegaly. No mass. Back: Mild vertebral point tenderness over the mid and lower lumbar spine. No muscle spasm in the back, soft tissue tenderness, CVA tenderness or limitation in ROM. Skin: Skin warm and dry. Normal skin color. No rash. Normal skin turgor. Extremities: Extremities exhibit normal ROM. Extremities nontender. Neuro: Oriented X 3.LABS, X-RAYS, AND EKGCT L-Spine: No acute findings. Note- No acute osseous or lumbar spine 2. Degenerative disc disease at L4-5 and L5-S1 causing mild to moderate neuroforaminal narrowing. The study was interpreted by the radiologist and contemporaneously by me. Interpretation time: 20:51 05/20/2020. Laboratory Tests: Laboratory tests have been ordered, with results reviewed and considered in the medical decision making process. CBC w Diff: (NINA: 05/20/2020 19:30) ( MsgRcvd 05/20/2020 19:57) Final results Test Result Flag Units (Reference) CBC W/AUTOMATED DIFF COMPLETE BLOOD COUNT WBC 7.2 10/uL (4.2 - 11.0) RBC 4.74 10/uL (4.20 - 5.40) HEMOGLOBIN 14.4 g/dL (12.0 - 16.0) HEMATOCRIT 41.4 % (37.0 - 47.0) MCV 87.3 fL (81.0 - 101) MCH 30.4 pg (27.0 - 34.0) MCHC 34.8 g/dL (31.0 - 36.0) RDW 12.2 % (11.5 - 14.5) PLATELETS 377 10/uL (150 - 450) MPV 10.1 fL (7.4 - 10.4) NEUT 61.9 % (37.0 - 80.0) LYMPH 24.5 L % (25.0 - 40.0) MONO 11.0 H % (3.0 - 8.0) EOS 1.5 % (0.0 - 7.0) BASO 0.8 % (0.0 - 2.5) %IG 0.3 H % (0.0 - 0.0) %NRBC 0.0 % (0.0 - 0.0) #NEUT 4.44 10/uL (2.00 - 6.90) #LYMPH 1.76 10/uL (0.60 - 3.40) #MONO 0.79 10/uL (0.00 - 0.90) #EOS 0.11 10/uL (0.00 - 0.70) 3 Clinical Report - Physicians/Mid Levels [facility] Emergency Department [address] [place] [address] Phone #: ext- [phone] 05/20/2020 18:49 Patient: MAGDY HASSAN Sex: F : 1995 Age: 24y #BASO 0.06 10/uL (0.00 - 0.20) #IG 0.02 10/uL (0.00 - 0.10) #NRBC 0.00 10/uL (0.00 - 0.00) MANUAL DIFF NOT INDICATED RBC MORPH NOT INDICATEDCMP: (NINA: 05/20/2020 19:30) ( MsgRcvd 05/20/2020 20:13) Final results Test Result Flag Units (Reference) COMPREHENSIVE METABOLIC PANEL COMPREHENSIVE METABOLIC PANEL SODIUM 135 mEq/L (134 - 153) POTASSIUM 4.1 mEq/L (3.6 - 5.0) CHLORIDE 99 mEq/L (98 - 107) CO2 27 MEQ/L (22 - 30) GLUCOSE 108 H MG/DL (70 - 99) BUN 13 MG/DL (7 - 21) CREATININE 0.6 L MG/DL (0.7 - 1.5) BUN/CREAT 22 (8 - 27) TOTAL PROTEIN 7.8 G/DL (6.3 - 8.2) ALBUMIN 4.5 G/DL (3.9 - 5.0) GLOBULIN 3.3 H GM/DL (2.4 - 3.2) A/G RATIO 1.4 (0.8 - 2.0) CALCIUM 9.4 MG/DL (8.4 - 10.2) TOTAL BILI <0.7 MG/DL (0.2 - 1.3) ALKALINE PHOS 89 U/L (38 - 126) SGOT/AST 18 U/L (5 - 40) SGPT/ALT 16 U/L (7 - 56) ANION GAP 9.0 mmol/L (8.0 - 16.0) AGE 24 yrs NON-AA GFR >60 mL/min AFR AMER GFR >60 mL/min Male GFR Interprentation 20-49 yrs >60 mL/min Qohfrl09-77 yrs >56 mL/min Normal 60-69 yrs >49 mL/min Normal 70-79yrs>42 mL/min Normal 80 and above >35 mL/min Normal Female GFRInterpretation 20-39 yrs >60 mL/min Normal 40-49 yrs >58 mL/minNormal 50-59 yrs >51 mL/min Normal 60-69 yrs >45 mL/min Feztkx70-13 yrs >39 mL/min Normal 80 and above >32 mL/min NormalBeta-HCG, Qual Urine: (NINA: 05/20/2020 19:13) ( MsgRcvd 05/20/2020 19:38) Final results Test Result Flag Units (Reference) HCG URINE QUAL NEGATIVE (NORMAL: NEGAT HCG URINE QL REENTER NEGATIVE (NORMAL: NEGAT { KIT LOT # [id number] ){ KIT EXP [id number] ){ PROCEDURAL CONTROL VALID)Lactic Acid: (NINA: 05/20/2020 19:30) ( MsgRcvd 05/20/2020 20:05) Final results Test Result Flag Units (Reference) LACTIC ACID 1.8 MMOL/L (0.2 - 2.2)Lipase: (NINA: 05/20/2020 19:30) ( MsgRcvd 05/20/2020 20:11) Final results Test Result Flag Units (Reference) LIPASE 35 U/L (13 - 60)PT/PTT: (NINA: 05/20/2020 19:30) ( MsgRcvd 05/20/2020 20:05) Final results 4 Clinical Report - Physicians/Mid Levels [facility] Emergency Department [address] [place] [address] Phone #: ext- [phone] 05/20/2020 18:49 Patient: MAGDY HASSAN Sex: F : 1995 Age: 24y Test Result Flag Units (Reference) PROTIME 12.4 SECONDS (11.0 - 15.5) INR 0.88 L (0.93 - 1.23) PTT 30.1 SECONDS (24.8 - 36.7) \\BLDo\\INR INTERPRETATION\\BLDx\\ Therapeutic range for Coumadin and related oral anticoagulants. -International Normalized Ratio (INR): 2.0 - 3.0 for Venous Thrombosis, Pulmonary Embolus, Tissue heart valves, Acute [place] Atrial Fibrillation, Valvular heart disease and recurrent Systemic Embolism. -International Normalized Ratio (INR): 2.5 - 3.5 for Mechanical Prosthetic valve. Urinalysis: (NINA: 05/20/2020 19:13) ( [facility] [place]35[place] Final results Test Result Flag U nits (Reference) URINALYSIS URINALYSIS SOURCE Clean Catch COLOR yellow (NORMAL: Yello CLARITY clear (NORMAL: Clear SPEC GRAVITY 1.005 (1.001 - 1.030 pH 7 (5 - 9) GLUCOSE NORM (NORMAL: Negat BILIRUBIN NEG (NORMAL: Negat KETONE NEG (NORMAL: Negat PROTEIN NEG (NORMAL: Negat NITRITE NEG (NORMAL: Negat BLOOD NEG (NORMAL: Negat LEUK EST NEG (NORMAL: Negat UROBILINOGEN NOR (less than 1.[address] LUMBAR SP W/O CONT: (NINA: 05/20/2020 19:18) ( MsgRcvd 05/20/2020 20:05) In Progress CT LUMBAR SP W/O CONT Reason(s): LBP TRANSPORTATION: WC IV? IV?(Yes) O2? Oxygen?(No) Ro.PROGRESS AND PROCEDURESCourse of Care: 20:56 May [address] scan and observation. (Discussed CT andexam findings and pt is agreeable with dx and tx plan.). Patient counseled in person regarding the patient's stable condition, test results, diagnosis and need for follow-up. Patient agrees with plan of care. 20:57 May 20 2020. Disposition: Discharged home in good condition (20:57 May 20 2020).CLINICAL IMPRESSION Episodic tension headache- resistant to treatment. Acute nontraumatic lumbar back pain associated with muscle strain; disc herniation in the lumbar spine. No radiculopathy, sciatica or neurological deficit. 5 Clinical Report - Physicians/Mid Levels [facility] Emergency Department [address] [place] [address] Phone #: ext- [phone] 05/20/2020 18:49 Patient: MAGDY HASSAN Sex: F : 1995 Age: 24yINSTRUCTIONS Warnings: GENERAL WARNINGS: Return or contact your physician immediately if your condition worsens or changes unexpectedly, if not improving as expected, or if other problems arise. SPECIFICALLY, return if you develop weakness of the foot or leg, numbness, tingling or incontinence of feces (loss of bowel control) or urine (loss of bladder control); or if there is no improvement in the pain. Your Current Medications: Your current home medications have been reviewed. CONTINUE TAKING THE FOLLOWING MEDICATIONS: Levothyroxine Sodium Oral : Tablet 150 mcg, 1 tablet daily. Prescription Medications: IBU 800 mg tablet Take 1 tablet three times a day for 15 days -- Dispense 45 tablet. Refills: 0. Substitution permitted. Pharmacy - [facility] - [id number] ; [place] [address]. FaxNumber: . Medrol (Zeferino) 4 mg tablets in a dose pack Take 1 tablet as directed for 6 days -- Dispense 1 pack. Refills: 0. Substitution permitted. Pharmacy - [facility] - [id number] ; [place] [address]. . methocarbamol 500 mg tablet Take 1 tablet three times a day for 10 days -- Dispense 30 tablet. Refills: 0. Substitution permitted. Pharmacy - [facility] - [id number] ; [place] [address]. . Follow-up: Follow up with your doctor. Call for the next available appointment. Reason for referral: evaluation, treatment and refer to Physical Therapy, MRI and Orthopedics if symptoms persist.. Summary of care provided to patient. Understanding of the discharge instructions verbalized by patient.(Electronically signed by JOHN Morris 05/20/2020 22:29) 6Clinical Report - Physicians/Mid Levels [facility] Emergency Department [address] [place] [address] Phone #: ext- [phone] 05/20/2020 18:49 Patient: MAGDY HASSAN Sex: F : 1995 Age: 24y Name Value Range Interpretation Code Description Data Anne Marie rce(s) Supporting Document(s) ID Date Data Source [id number] 05/20/2020 08:12:[address] [facility] Name Value Range Interpretation Code Description Data Anne Marie rce(s) Supporting Document(s) COMPREHENSIVE METABOLIC PANEL [facility] COMPREHENSIVE METABOLIC PANEL Sodium [Moles/volume] in Serum or Plasma 135 mEq/L 134 - 153 [facility] Potassium [Moles/volume] in Serum or Plasma 4.1 mEq/L 3.6 - 5.0 [facility] Chloride [Moles/volume] in Serum or Plasma 99 mEq/L 98 - 107 [facility] Carbon dioxide, total [Moles/volume] in Serum or Plasma 27 MEQ/L 22 - 30 [facility] Glucose [Mass/volume] in Serum or Plasma 108 MG/DL 70 - [address] [facility] BUN 13 MG/DL 7 - 21 [facility] Creatinine [Mass/volume] in Serum or Plasma 0.6 MG/DL 0.7 - 1.[address] [facility] BUN/CREAT 22 8 - 27 [facility] al Protein [Mass/volume] in Serum or Plasma 7.8 G/DL 6.3 - 8.2 [facility] Albumin [Mass/volume] in Serum or Plasma 4.5 G/DL 3.9 - 5.0 [facility] Globulin [Mass/volume] in Serum by calculation 3.3 GM/DL 2.4 - 3.[address] [facility] A/G RATIO 1.4 0.8 - 2.0 [facility] Calcium [Mass/volume] in Serum or Plasma 9.4 MG/DL 8.4 - 10.2 [facility] Bilirubin.total [Mass/volume] in Serum or Plasma <0.7 MG/DL 0.2 - 1.3 [facility] Alkaline phosphatase [Enzymatic activity/volume] in Serum or Plasma 89 U/L 38 - 126 [facility] Aspartate aminotransferase [Enzymatic activity/volume] in Serum or Plasma 18 U/L 5 - 40 [facility] Alanine aminotransferase [Enzymatic activity/volume] in Seru m or Plasma 16 U/L 7 - 56 [facility] Anion gap 3 in Serum or Plasma 9.0 mmol/L 8.0 - 16.0 [facility] AGE 24 yrs [facility] NON-AA GFR >60 mL/min [facility] ital AFR AMER GFR >60 mL/min [facility] Ho spital Male GFR In terprentation 20-49 yrs >60 mL/min Normal 50-59 yrs >56 mL/min Normal 60-69 yrs >49 mL/min Normal 70-79yrs >42 mL/min Normal 80 and above >35 mL/min Normal Female GFR Interpretation 20-39 yrs >60 mL/min Normal 40-49 yrs >58 mL/min Normal 50-59 yrs >51 mL/min Normal 60-69 yrs >45 mL/min Normal 70-79 yrs >39 mL/min Normal 80 and above >32 mL/min Normal ID Date Data Source [id number] 05/20/2020 08:11:00 PM [facility] Name Value Range Interpretation Code Description Data Anne Marie rce(s) Supporting Document(s) Lipase [Enzymatic activity/volume] in Serum or Plasma 35 U/L 13 - 60 [facility] ID Date Data Source [id number] 05/20/2020 08:05:00 PM [facility] Name Value Range Interpretation Code Description Data Anne Marie rce(s) Supporting Document(s) Lactate [Moles/volume] in Serum or Plasma 1.8 MMOL/L 0.2 - 2.2 [facility] ID Date Data Source [id number] 05/20/2020 08:05:00 PM [facility] Name Value Range Interpretation Code Description Data Anne Marie rce(s) Supporting Document(s) Prothrombin time (PT) 12.4 SECONDS 11.0 - 15.5 [facility] INR in Platelet poor plasma by Coagulation assay 0.88 0.93 - 1. [address] [facility] aPTT in Blood by Coagulation assay 30.1 SECONDS 24.8 - 36.7 [facility] \\BLDo\\INR INTERPRETATION\\BLDx\\ Therapeutic range for Coumadin and related oral anticoagulants. - International Normalized Ratio (INR): 2.0 - 3.0 for Venous Thrombosis, Pulmonary Embolus, Tissue heart valves, Acute [place] Atrial Fibrillation, Valvular heart disease and recurrent Systemic Embolism. - International Normalized Ratio (INR): 2.5 - 3.5 for Mechanical Prosthetic valve. ID Date Data Source [id number] 05/20/2020 07:57:[address] [facility] Name Value Range Interpretation Code Description Data Anne Marie rce(s) Supporting Document(s) CBC W/AUTOMATED DIFF [facility] COMPLETE BLOOD COUNT Leukocytes [#/volume] in Blood by Automated count 7.2 10^3/uL 4.2 - [address] [facility] Erythrocytes [#/volume] in Blood by Automated count 4.74 10^6/uL 4. 20 - 5.40 [facility] Hemoglobin [Mass/volume] in Blood 14.4 g/dL 12.0 - 16.0 [facility] Hematocrit [Volume Fraction] of Blood by Automated count 41.4 % 3 7.0 - 47.0 [facility] Erythrocyte mean corpuscular volume [Entitic volume] by Auto mated count 87.3 fL 81.0 - 101 [facility] Erythrocyte mean corpuscular hemoglobin [Entitic mass] by Automated count 30.4 pg 27.0 - 34.0 [facility] Erythrocyte mean corpuscular hemoglobin concentration [Mass/volume] by Automated count 34.8 g/dL 31.0 - 36.0 [facility] Erythrocyte distribution width [Ratio] by Automated count 12.2 % 11.5 - 14.5 [facility] Platelets [#/volume] in Blood by Automated count 377 10^3/uL 150 - [address] [facility] Platelet mean volume [Entitic volume] in Blood by Automated count 10.1 fL 7.4 - 10.4 [facility] Neutrophils/100 leukocytes in Blood by Automated count 61.9 % 37. 0 - 80.0 [facility] Lymphocytes/100 leukocytes in Blood by Manual count 24.5 % 25.0 - 40.[address] [facility] Monocytes/100 leukocytes in Blood by Automated count 11.0 % 3.0 - 8.[address] [facility] Eosinophils/100 leukocytes in Blood by Automated count 1.5 % 0.0 - 7.0 [facility] Basophils/100 leukocytes in Blood by Automated count 0.8 % 0.0 - 2.5 [facility] %IG 0.3 % 0.0 - 0.[address] [facility] 0.0 % 0.0 - 0.0 [facility] al Neutrophils [#/volume] in Blood by Automated count 4.44 10^3/uL 2.00 - 6.90 [facility] Lymphocytes [#/volume] in Blood by Automated count 1.76 10^3/uL 0.60 - 3.40 [facility] Monocytes [#/volume] in Blood by Automated count 0.79 10^3/uL 0.00 - 0.90 [facility] Eosinophils [#/volume] in Blood by Automated count 0.11 10^3/uL 0.00 - 0.70 [facility] Basophils [#/volume] in Blood by Automated count 0.06 10^3/uL 0.00 - 0.20 [facility] #IG 0.02 10^3/uL 0.00 - 0.10 [facility] #NRBC 0.00 10^3/uL 0.00 - 0.00 [facility] MANUAL DIFF NOT INDICATED [facility] RBC MORPH NOT INDICATED [facility] ID Date Data Source [id number] 05/20/2020 07:37:[address] [facility] Name Value Range Interpretation Code Description Data Anne Marie rce(s) Supporting Document(s) HCG URINE QUAL NEGATIVE NORMAL: NEGATIVE [facility] HCG URINE QL REENTER NEGATIVE NORMAL: NEGATIVE [facility] { KIT LOT # [id number] ){ KIT EXP DATE 10-25-21 ){ PROCEDURAL CONTROL VALID ) ID Date Data Source [id number] 05/20/2020 07:35:[address] [facility] Name Value Range Interpretation Code Description Data Anne Marie rce(s) Supporting Document(s) URINALYSIS [facility] raisa URINALYSIS SOURCE Clean Catch [facility] ital COLOR yellow NORMAL: Yellow [facility] ospital CLARITY clear NORMAL: Clear [facility] Specific gravity of Urine by Test strip 1.005 1.001 - 1.030 [facility] pH 7 5 - [facility] Glucose [Mass/volume] in Urine by Test strip NORM NORMAL: Negat [facility] Bilirubin.total [Presence] in Urine by Test strip NEG NORMAL: Negative [facility] Ketones [Presence] in Urine by Test strip NEG NORMAL: Negative [facility] Protein [Mass/volume] in Urine by Test strip NEG NORMAL: Negat [facility] Nitrite [Presence] in Urine by Test strip NEG NORMAL: Negative [facility] BLOOD NEG NORMAL: Negative [facility] Leukocyte esterase [Presence] in Urine by Test strip NEG MARILYN L: Negative [facility] Urobilinogen [Mass/volume] in Urine by Test strip NOR less juanjo n 1.0 mg/dL [facility] MICROSCOPIC Not Indicate [facility] ID Date Data Source [id number] 04/01/2020 12:00:00 AM EST [facility] Name Value Range Interpretation Code Description Data Anne Marie rce(s) Supporting Document(s) SARS coronavirus 2 RNA [Presence] in Res piratory specimen by BRENDA with probe detection NEGATIVE [facility] This lab was ordered by Nakul Richard and reported by [facility]. ID Date Data Source [id number] 02/25/2020 10:47:00 AM EST [facility] [address] [place] [address] PHONE: [phone] FAX: [phone] Name .................. : SONYA CURRAN Acct Number.................. : [id number] [facility] ................... : [id number] Stay type ............. : E/R Discharge Date......... ... : 02/20/20 Admit Date ......... : 02/20/20 Admit Phys .................... : AMJAYMIE De La O Date of ....... : 1995 Family Phys ................... : UNKNOWN Phone .................. : [phone] Age ................................ : 24 Film# .................. .:[id number] Sex ................................. : F Unsigned transcriptions are preliminary reports and do not represent a medical or legal document CT ABD & PELVIS W/ IV ONLY [id number] COMPLETE:02/20/20 21:16 DLA [id number] Reason(s): abd pain/cramping CT OF THE ABDOMEN AND PELVIS WITH CONTRAST: INDICATION: Abdominal pain and cramping. FINDINGS: The chest base is clear. There is normal contrast-enhanced appearance of the liver, spleen, pancreas, adrenal glands and kidneys. No gallbladder wall thickening or biliary duct dilatation. The visualized bowel is normal in caliber. The appendix is normal. No bowel wall thickening. The bladder is normal. The uterus has the appearance of an arcuate uterus. The remainder of the pelvic organs appear normal. No acute osseous abnormality. No lymphadenopathy. IMPRESSION: Possible arcuate uterus. This could be further evaluated with nonemergent MRI. No acute intra- abdominal process. While performing the above CT examination, radiation dose reduction was accomplished utilizing automated exposure control, adjusting of the mA and kV based on the patient's body size and/or the use of imperative reconstructive techniques. CT dose: 1055.1 mGycm Page 1 of 2 [place] [address] PHONE: [phone] FAX: [phone] Name .................. : SONYA CURRAN Acct Number.................. : [id number] ROOM. ................. : TR-04 MR Number ................... : [id number] Stay type ............. : E/R Discharge Date......... ... : 02/20/20 Admit Date ......... : 02/20/20 Admit Phys .................... : ELDA De La O Date of ....... : 1995 Family Phys ................... : UNKNOWN Phone .................. : [phone] Age ................................ : 24 Film# .................. .:[id number] Sex ................................. : F Unsigned transcriptions are preliminary reports and do not represent a medical or legal document CT ABD & PELVIS W/ IV ONLY [id number] COMPLETE: 21:16 DLA 01181 Reason(s): abd pain/cramping Contrast agent in mL: 75 Isovue 370 Method of administration: Intravenous Electronically Reviewed and Signed By Niraj Green M.D. , 02/25/20 10:47, [place] Transcribe Initials: DZ , Transcribe Date: 02/20/20 23:13, Dictation Date: Copy for: HAYDEN BONILLA via fax Copy for: EMERGENCY DEPT via modem Copy for: 710 MED REC DISCHARGED Page 2 of 2 Name Value Range Interpretation Code Description Data Anne Marie rce(s) Supporting Document(s) ID Date Data Source [id number] 02/25/2020 10:47:00 AM EST [facility] [address] [place] [address] PHONE: [phone] FAX: [phone] Name .................. : SONYA CURRAN Acct Number.................. : [id number] ROOM. ................. : TR-04 MR Number ................... : [id number] Stay type ............. : E/R Discharge Date......... ... : 02/20/20 Admit Date ......... : 02/20/20 Admit Phys .................... : ELDA DeL a O Date of ....... : 1995 Family Phys ................... : UNKNOWN Phone .................. : [phone] Age ................................ : 24 Film# .................. .:[id number] Sex ................................. : F Unsigned transcriptions are preliminary reports and do not represent a medical or legal document CT HEAD W/O CONTRAST 53041 COMPLETE:02/20/20 21:16 DLA 89396 Reason(s): SCHMITT CT OF THE HEAD WITHOUT CONTRAST: INDICATION: Headache. FINDINGS: No intra-axial or extra-axial collections of fluid. Ventricles and sulci unremarkable. No midline shift or mass effect. Visualized paranasal sinuses and mastoid air cells unremarkable. IMPRESSION: No acute intracranial process. While performing the above CT examination, radiation dose reduction was accomplished utilizing automated exposure control, adjusting of the mA and kV based on the patient's body size and/or the use of imperative reconstructive techniques. CT dose: 804.9 mGycm Electronically Reviewed and Signed By Niraj Green M.D. , 02/25/20 10:47, [place] Transcribe Initials: GARRETT , Transcribe Date: 02/20/20 23:12, Dictation Date: Copy for: HAYDEN BONILLA via fax Copy for: EMERGENCY DEPT via modem Copy for: 710 MED REC DISCHARGED Page 1 of 1 Name Value Range Interpretation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 --22:02/20/20 Adri Barros R.N.Locked/Released at 02/20/2020 22:06 by Adri Barros R.N. Name Value Range Interpretation Code Description Data Anne Marie rce(s) Supporting Document(s) ID Date Data Source [id number] 02/20/2020 05:37:[address] [facility] 1 Clinical Report - Physicians/Mid Levels [facility] Emergency Department [address] [place] [address] Phone #: ext- [phone] 02/20/2020 17:19 Patient: MAGDY HASSAN Sex: F : 1995 Age: 24y Time Seen: 17:57 02/20/2020; initial patient contact, initial documentation. Arrived- By private vehicle. Historian- patient. Disposition decision: 21:51 02/20/2020.HISTORY OF PRESENT ILLNESS Chief Complaint: VAGINAL BLEEDING. This started about 3 days ago and still present. The symptoms are described as moderate. The patient has had abdominal pain, pelvic pain and abnormal bleeding. No low back pain, flank pain, pain with urination, urinary f requency or urgency of urination. No hematuria. (Pt presents with continued abd pain/cramping and vaginal bleeding s/p a miscarriage. Pt wsa seen in this ER 3 wks ago and at that time, had been bleeding for 2 wks and was given methotrexate; thus pt has had bleeding for 5 wks and continued abd pain/cramping. Pt sts she ahs not [facility] in 5 wks since the methotrexate. 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 Similar symptoms previously. None. Recent medical care: The patient was seen recently at this facility in the emergency department.REVIEW OF SYSTEMSNo nausea, vomiting, diarrhea, black stools or headache. No fever, chills, anorexia, eye discomfort orsore throat. No cough, difficulty breathing, skin rash or enlarged lymph nodes. All other systemsreviewed and are negative.PAST HISTORYSee nurses notes. Problems: Hypothyroidism. Miscarriage (disorder). Additional Surgeries: Thyroid Surgery. Tonsillectomy. Medications: Levothyroxine Sodium Oral (Tablet 150 mcg) 1 tablet, daily. Allergies: No Known Drug Allergy.SOCIAL HISTORY 2 Clinical Report - Physicians/Mid Levels [facility] Emergency Department [address] [place] [address] Phone #: ext- [phone] 02/20/2020 17:19 ---- Patient: MAGDY HASSAN Sex: F : 1995 Age: 24y Never smoker. No alcohol use or drug use.ADDITIONAL NOTESThe nursing notes have been reviewed.PHYSICAL EXAMVital Signs: 02/20/2020 17:45 BP: 141/87. MAP: 105. HR: 73. RR: 18. O2 saturation: 100%. Temp: 99.1F. Pain level now: 10. Have been reviewed. Oxygen saturation normal.Appearance: Alert. Oriented X3. No acute distress.Eyes: Eyelids appear normal to inspection. Conjunctivae and sclerae appear normal to inspection.Corneas appear normal to inspection. Pupils equal, round and reactive to light and light.Accommodation normal. EOMs intact. Periorbital areas appear normal to inspection. Anteriorchambers clear.ENT: Normal ENT inspection. Airway intact. Ears normal. Nose normal. Nares normal. Pharynxnormal. Moist mucous membranes. Uvula midline. Voice normal.Neck: Neck supple.CVS: Normal heart rate and rhythm. No JVD present. Pulses normal. Capillary refill normal. Strongperipheral pulses. Heart sounds normal. Pulses: right radial 2+; left radial 2+; right dorsalis pedis 2+; leftdorsalis pedis 2+; right posterior tibial 2+; left posterior tibial 2+.Respiratory: Chest normal on inspection. No respiratory distress. Unlabored respirations. Lungs clear.Good chest movement. Breath sounds normal and equal.Abdomen: Normal inspection. Soft. Tenderness in the suprapubic area. Bowel sounds normal. Nodistention.: Web Services Developer present (Adri Cali, CECE). Speculum exam performed. Normal external exam.Speculum e xam normal. No vaginal discharge. No vaginal bleeding. No cervical lesions. Cervical osclosed. No herpes-like lesions. (Pt gives verbal conset for exam. Web Services Developer present).Skin: Skin warm and dry.Extremities: No lower extremity edema. Extremities nontender. No calf tenderness. No lower extremityedema.Neuro: Awake. Mood/affect normal. Speech normal. Cranial nerves II through XII intact and normal (astested). No cerebellar findings. No motor deficit. No sensory deficit. Reflexes normal. Reflex exam:right triceps 2+, left triceps 2+, right biceps 2+, left biceps 2+, right brachioradialis 2+ and leftbrachioradialis 2+.Psych: Cognition normal. Thought process and content normal. Insight and judgement normal.LABS, X-RAYS, AND EKGCT Head: (Peter blount Neal - 02/20/2020 9:35:31 PMnad). The study was interpreted by the radiologist.CT Abdomen - Pelvis: Peter blount Neal - 02/20/2020 9:37:40 PMPossible arcuate uterus. This could be further evaluated with nonemergent MRI. No acute intra-abdominalproces s. The study was interpreted by the radiologist.Pelvic Sonogram: Peter blount Neal - 02/20/2020 8:17:20 PMnad.Laboratory Tests: 3 Clinical Report - Physicians/Mid Levels [facility] Emergency Department [address] [place] [address] Phone #: ext- [phone] 02/20/2020 17:19 Patient: MAGDY HASSAN Sex: F : 1995 Age: 24yBeta-HCG, Quant Serum: (NINA: 02/20/2020 18:29) ( MsgRcvd 02/20/2020 19:43) Final results Test Result Flag Units (Reference) HCG QUANT 0.5 mIU/mL Interpretation: Less than 5 mU/mL: Negative6-10 mU/mL: Borderline (suggest repeat in 48 hours) >10: PositiveApprox HCG range (mU/mL) Weeks post LMP 5.4-708 mU/mL 3-4 Yznpu912-84502 mU/mL 5-6 Weeks 4059-875116 mU/mL 7-8 Svtgp09319-560702 mU/mL 9-10 Weeks 76769-71788 mU/mL 12-14 Yotwr60077-54044 mU/mL 15-16 Weeks 8240-89912 mU/mL 17-18 WeeksSyphilis: (NINA: 02/20/2020 18:29) ( MsgRcvd 02/20/2020 20:17) Final results Test Result Flag Units (Reference) SYPHILIS NON-REACTIVE (NORMAL:NON RECBC w Diff: (NINA: 02/20/2020 18:29) ( MsgRcvd 02/20/2020 18:44) Final results Test Result Flag Units (Reference) CBC W/AUTOMATED DIFF COMPLETE BLOOD COUNT WBC 7.1 10/uL (4.2 - 11.0) RBC 4.57 10/uL (4.20 - 5.40) HEMOGLOBIN 13.8 g/dL (12.0 - 16.0) HEMATOCRIT 41.0 % (37.0 - 47.0) MCV 89.7 fL (81.0 - 101) MCH 30.2 pg (27.0 - 34.0) MCHC 33.7 g/dL (31.0 - 36.0) RDW 11.8 % (11.5 - 14.5) PLATELETS 332 10/uL (150 - 450) MPV 10.3 fL (7.4 - 10.4) NEUT 61.9 % (37.0 - 80.0) LYMPH 27.1 % (25.0 - 40.0) MONO 9.3 H % (3.0 - 8.0) EOS 0.6 % (0.0 - 7.0) BASO 0.8 % (0.0 - 2.5) %IG 0.3 H % (0.0 - 0.0) %NRBC 0.0 % (0.0 - 0.0) #NEUT 4.37 10/uL (2.00 - 6.90) #LYMPH 1.91 10/uL (0.60 - 3.40) #MONO 0.66 10/uL (0.00 - 0.90) #EOS 0.04 10/uL (0.00 - 0.70) #BASO 0.06 10/uL (0.00 - 0.20) #IG 0.02 10/uL (0.00 - 0.10) #NRBC 0.00 10/uL (0.00 - 0.00) MANUAL DIFF NOT INDICATED RBC MORPH NOT INDICATEDCMP: (NINA: 02/20/2020 18:29) ( MsgRcvd 02/20/2020 19:31) Final results Test Result Flag Units (Reference) COMPREHENSIVE METABOLIC PANEL COMPREHENSIVE METABOLIC PANEL SODIUM 140 mEq/L (134 - 153) POTASSIUM 4.5 mEq/L (3.6 - 5.0) CHLORIDE 104 mEq/L (98 - 107) CO2 28 MEQ/L (22 - 30) GLUCOSE 87 MG/DL (65 - 110) BUN 10 MG/DL (7 - 21) 4 Clinical Report - Physicians/Mid Levels [facility] Emergency Department [address] [place] [address] Phone #: ext- [phone] 02/20/2020 17:19 Patient: MAGDY HASSAN Sex: F : 1995 Age: 24y CREATININE 0.8 MG/DL (0.7 - 1.5) BUN/CREAT 13 (8 - 27) TOTAL PROTEIN 7.3 G/DL (6.3 - 8.2) ALBUMIN 4.4 G/DL (3.9 - 5.0) GLOBULIN 2.9 GM/DL (2.4 - 3.2) A/G RATIO 1.5 (0.8 - 2.0) CALCIUM 10.1 MG/DL (8.4 - 10.2) TOTAL BILI <0.7 MG/DL (0.2 - 1.3) ALKALINE PHOS 61 U/L (38 - 126) SGOT/AST 15 U/L (5 - 40) SGPT/ALT 11 U/L (7 - 56) ANION GAP 8.0 mmol/L (8.0 - 16.0) AGE 24 yrs NON-AA GFR >60 mL/min AFR AMER GFR >60 mL/min Male GFR Interprentation 20-49 yrs >60 mL/min Hkmtta86-91 yrs >56 mL/min Normal 60-69 yrs >49 mL/min Normal 70-79yrs>42 mL/min Normal 80 and above >35 mL/min Normal Female GFRInterpretation 20-39 yrs >60 mL/min Normal 40-49 yrs >58 mL/minNormal 50-59 yrs >51 mL/min Normal 60-69 yrs >45 mL/min Zpabgn84-37 yrs >39 mL/min Normal 80 and above >32 mL/min NormalBeta-HCG, Qual Serum: (NINA: 02/20/2020 18:29) ( [facility] [place] 18:56) Final results Test Result Flag Units (Reference) HCG SERUM QUAL NEGATIVE (NORMAL: NEGAT HCG SERUM QL REENTER NEGATIVE (NORMAL: NEGAT { KIT LOT # [id number] ){ KIT EXP DATE12.31.20 ){ PROCEDURAL CONTROL VALID)Urinalysis: (NINA: 02/20/2020 19:00) ( [facility] [place] 19:21) Final results Test Result Flag Units (Reference) URINALYSIS URINALYSIS SOURCE R COLOR yellow (NORMAL: Yello CLARITY clear (NORMAL: Clear SPEC GRAVITY 1.015 (1.001 - 1.030 pH 8 (5 - 9) GLUCOSE NORM (NORMAL: Negat BILIRUBIN NEG (NORMAL: Negat KETONE NEG (NORMAL: Negat PROTEIN NEG (NORMAL: Negat NITRITE NEG (NORMAL: Negat BLOOD NEG (NORMAL: Negat LEUK EST NEG (NORMAL: Negat UROBILINOGEN NOR (less than 1.0 MICROSCOPIC Not IndicateBeta-HCG, Qual Urine: (NINA: 02/20/2020 18:13) ( [facility] [place] 19:17) CanceledTSH: (NINA: 02/20/2020 18:29) ( [facility] [place] 19:32) Final results Test Result Flag Units (Reference) TSH 0.77 uIU/mL (0.47 - 5.01) 5 Clinical Report - Physicians/Mid Levels [facility] Emergency Department [address] [place] [address] Phone #: ext- [phone] 02/20/2020 17:19 Patient: MAGDY HASSAN Sex: F : 1995 Age: 24y PT/INR: (NINA: 02/20/2020 18:29) ( MsgRcvd 02/20/2020 19:03) Final results Test Result Flag Units (Reference) PROTIME 13.1 SECONDS (11.0 - 15.5) INR 0.94 (0.93 - 1.23) \\BLDo\\INR INTERPRETATION\\BLDx\\ Therapeutic range for Coumadin and related oral anticoagulants. -International Normalized Ratio (INR): 2.0 - 3.0 for Venous Thrombosis, Pulmonary Embolus, Tissue heart valves, Acute WA, Atrial Fibrillation, Valvular heart disease and recurrent Systemic Embolism. -International Normalized Ratio (INR): 2.5 - 3.5 for Mechanical Prosthetic valve. Lactic Acid: (NINA: 02/20/2020 18:29) ( MsgRcvd 02/20/2020 18:46) Final results Test Result Flag Units (Reference) LACTIC ACID 1.5 MMOL/L (0.2 - 2.2).PROGRESS AND PROCEDURESCourse of Care: VSS, NAD, AOx3, interacting well and appropriately, no use of accessory muscle, able tospeak full sentences, stable, non-toxic looking. Enter room and pt lying peacefully in bed in NAD. Patient stable. Denies any new issues, concerns, or complaints. Pt was seen in this ER 3 weeks ago for similar complaints. Pt has not seen or been seen by her OBGYN due to them PCSing and does not have appt. Pt was given methotrexate for miscarriage 5 wks ago and continues to experinece vaginal bleeding and abdomain cramping. PE dmeos NV itnact b/l UE and LE. No neuro deficits ntoed. Noted TTP of lower abd. Will order labs to confirm/deny . Will obtain US for eval. ? retained material. Pt also complains of a SCHMITT. Does not have hx of SCHMITT and has been present for week. No improvement. Noted prevoius visit she also had c/o dizziness. Reviewed previous labs. Type Rh: (NINA: 01/10/2020 18:25) ( MsgRcvd 01/10/2020 19:40) Final results Test Result Flag (Reference) ABO GROUP O RH TYPE POSITIVE ABO/RH REENTER O POSITIVE Pt requests STD testing. Inquire if there is a concern and pt sts that she had a bad boyfriend and has not had testing and is concerned due to recent events. Pt sts that it more for peace of mind as she also has 6 Clinical Report - Physicians/Mid Levels [facility] Emergency Department [address] [place] [address] Phone #: ext- [phone] 02/20/2020 17:19 Patient: MAGDY HASSAN Sex: F : 1995 Age: 24y read online. Will add to blood orders and will be doing a pelvic exam as no exam has been done s/p continued bleeding and methotrexate. Pt agrees. Reviewed labs and no significant abnromalities. Reviewed US and NAD. Will do pelvic exam. Pt gives verbal consent for exam. Web Services Developer present. No bleeding noted. Pt has abdominal pain and no clear etiology. [facility]. Reviewed resutls. Discussed wiht attending. Enter room and patient lying peacefully in bed in NAD. Patient stable. Denies any new issues, concerns, or complaints. Discussed results with pt. Discussed tx plan with pt. Discussed and counseled on stable condition. Discussed importance of a f/u with PCP. Discussed return to ER criteria. Answered their questions. Indicates and verbalizes that they understand, agree, and will comply with above. Denies any new questions or concerns. Patient has capacity to understand. Discharge decision based on the following: patient's condition is stable; patient's exam is stable; social support is adequate; transportation is available; follow-up is available. Discussed of OTC Motrin and Tylenol to control inflammation and pain management. Informed to follow directions on bottle that are appropriate for age and/or weight. Discussed case with health care provider (Elda). Disposition: Discharged home in good and improved condition. Condition: good and stable.CLINICAL IMPRESSION Mild metrorrhagia. Acute suprapubic abdominal pain of undetermined cause. ; abnormal CT of the abdomen and pelvis. (Possible arcuate uterus. This could be further evaluated with nonemergent MRI. No acute intra- abdominal process.).INSTRUCTIONS No strenuous activity for two weeks (PT at own pace and distance). 7 Clinical Report - Physicians/Mid Levels [facility] Emergency Department [address] [place] [address] Phone #: ext- [phone] 02/20/2020 17:19 Patient: MAGDY HASSAN Sex: F : 1995 Age: 24y No sexual contact for two weeks. (Ela Puja: [phone] [place] Senior Compliance Analyst. Please call to help faciliate referral Recommend to utilize OTC Motrin and Tylenol to control inflammation and pain management. Recommend to follow the instructions on the bottle and not to exceed. Recommend MRI of pelvis for futher eval of uterus based on incidental findings today. Possible arcuate uterus. This could be further evaluated with nonemergent MRI. No acute intra-abdominal process.). Your Current Medications: Your current home medications have been reviewed. CONTINUE TAKING THE FOLLOWING MEDICATIONS: Levothyroxine Sodium Oral : Tablet 150 mcg, 1 tablet daily. Follow-up: Return to the emergency department as needed. Follow up with your healthcare provider in about two days if not better. Follow up with a rn nursery Possible arcuate uterus. This could be further evaluated with nonemergent MRI. No acute intra- abdominal process. tomorrow. Call for the next available appointment.(Electronically signed by Austin Bae P.A.-C 02/21/2020 00:05) Name Value Range Interpretation Code Description Data Anne Marie rce(s) Supporting Document(s) ID Date Data Source [id number] 02/24/2020 06:10:00 AM [facility] Name Value Range Interpretation Code Description Data Anne Marie rce(s) Supporting Document(s) Chlamydia trachomatis rRNA [Presence] in Unspecified specimen by Probe and target amplification method Negative Negative [facility] Neisseria gonorrhoeae rRNA [Presence] in Unspecified specimen by Probe and target amplification method Negative Negative [facility] ID Date Data Source [id number] 02/20/2020 07:21:00 PM [facility] Name Value Range Interpretation Code Description Data Anne Marie rce(s) Supporting Document(s) URINALYSIS [facility] raisa URINALYSIS SOURCE R [facility] COLOR yellow NORMAL: Yellow [facility] CLARITY clear NORMAL: Clear [facility] Specific gravity of Urine by Test strip 1.015 1.001 - 1.030 [facility] pH 8 5 - [facility] Gl[facility] [Mass/volume] in Urine by Test strip NORM NORMAL: Negat [facility] Bilirubin.total [Presence] in Urine by Test strip NEG NORMAL: Negative [facility] [facility] Ketones [Presence] in Urine by Test strip NEG NORMAL: Negative [facility] Protein [Mass/volume] in Urine by Test strip NEG NORMAL: Negat [facility] Nitrite [Presence] in Urine by Test strip NEG NORMAL: Negative [facility] BLOOD NEG NORMAL: Negative [facility] Leukocyte esterase [Presence] in Urine by Test strip NEG MARILYN L: Negative [facility] Urobilinogen [Mass/volume] in Urine by Test strip NOR less juanjo n 1.0 mg/dL [facility] MICROSCOPIC Not Indicate [facility] ID Date Data Source [id number] 02/25/2020 01:11:00 PM [facility] Name Value Range Interpretation Code Description Data Anne Marie rce(s) Supporting Document(s) CULTURE URINE [facility] _CULTURE URINE_$$[id number]$$341990$$309380$$353137$$171742$$361377$$000661$$608553$$747806$$ 978383$$657378$$285637$$754987$$211741$$366218$$064325$$086540$$580045$$162803$$ 096426$$618581$$996342$$870002$$263978$$703141$$375165$$757654 -- Continued on next page --Patient: SONYA CURRAN Order: [id number] Page 2Culture: CULTURE URINE Status: Final ==== -- Continued on next page --Patient: SONYA CURRAN Order: [id number] Page 2Culture: CULTURE URINE Status: Prelim =====$$[id number]$$[id number] DATE/TIME: 02/25/2020 13:05Culture: CULTURE URINE Status: FinalUrine Culture,Comprehensive: P1No growth in 36 - 48 hours. Previous result entered on 02/24/2020 06:45 ET No growth after 18-24 hours.P1 Test performed by: [facility] ENRIQUEZ #: [id number] [address] [place] [address] [id number] [facility] [address]Medical Director : Rock Diana MD NPI #:Lab Di tom : 02/25/20.0651.XMT.SENT REF 02/25/20.1311.XMT.SENT REF ID Date Data Source [id number] 02/23/2020 07:16:00 AM [facility] Name Value Range Interpretation Code Description Data Anne Marie rce(s) Supporting Document(s) HIV 1+2 Ab+HIV1 p24 Ag [Presence] in Serum or Plasma b y Immunoassay Non Reactive Non Reactive [facility] ID Date Data Source [id number] 02/23/2020 07:16:00 AM [facility] Name Value Range Interpretation Code Description Data Anne Marie rce(s) Supporting Document(s) Hepatitis A virus IgM Ab [Presence] in Serum or Plasma by Im munoassay Negative Negative [facility] Hepatitis B virus surface Ag [Presence] in Serum or Pl asma by Immunoassay Negative Negative [facility] Hepatitis B virus core IgM Ab [Presence] in Serum or P lasma by Immunoassay Negative Negative [facility] Hepatitis C virus Ab Signal/Cutoff in Serum or Plasma by Immunoassay <0.1 s/coratio 0.0-0.9 [facility] Negative: < 0.8 Indeterminate: 0.8 - 0.9 Positive: > 0.9 The CDC recommends that a positive HCV antibody result be followed up with a HCV Nucleic Acid Amplification test (391999). ID Date Data Source [id number] 02/20/2020 08:17:00 PM [facility] Name Value Range Interpretation Code Description Data Anne Marie rce(s) Supporting Document(s) Treponema pallidum Ab [Presence] in Serum NON-REACTIVE NORMAL:NON RAMON CTIVE [facility] ID Date Data Source [id number] 02/20/2020 07:43:00 PM [facility] Name Value Range Interpretation Code Description Data Anne Marie rce(s) Supporting Document(s) Choriogonadotropin.intact [Units/volume] in Serum or Plasma 0.5 mIU/m L [facility] Interpr etation: Less than 5 mU/mL: Negative 6-10 mU/mL: Borderline (suggest repeat in 48 hours) >10: Positive Approx HCG range (mU/mL) Weeks post LMP 5.4-708 mU/mL 3-4 Weeks 217-23586 mU/mL 5-6 Weeks 4059-179743 mU/mL 7-8 Weeks 98625-890967 mU/mL 9-10 Weeks 38443-46468 mU/mL 12-14 Weeks 71312-24419 mU/mL 15-16 Weeks 6920- 43407 mU/mL 17-18 Weeks ID Date Data Source [id number] 02/20/2020 07:31:00 PM [facility] Name Value Range Interpretation Code Description Data Anne Marie rce(s) Supporting Document(s) Thyrotropin [Units/volume] in Serum or Plasma by Detec tion limit <= 0.05 mIU/L 0.77 uIU/mL 0.47 - 5.01 [facility] ID Date Data Source [id number] 02/20/2020 07:31:[address] [facility] Name Value Range Interpretation Code Description Data Anne Marie rce(s) Supporting Document(s) COMPREHENSIVE METABOLIC PANEL [facility] COMPREHENSIVE METABOLIC PANEL Sodium [Moles/volume] in Serum or Plasma 140 mEq/L 134 - 153 [facility] Potassium [Moles/volume] in Serum or Plasma 4.5 mEq/L 3.6 - 5.0 [facility] Chloride [Moles/volume] in Serum or Plasma 104 mEq/L 98 - 107 [facility] Carbon dioxide, total [Moles/volume] in Serum or Plasma 28 MEQ/L 22 - 30 [facility] Glucose [Mass/volume] in Serum or Plasma 87 MG/DL 65 - 110 [facility] BUN 10 MG/DL 7 - 21 [facility] Creatinine [Mass/volume] in Serum or Plasma 0.8 MG/DL 0.7 - 1.5 [facility] BUN/CREAT 13 8 - 27 [facility] Protein [Mass/volume] in Serum or Plasma 7.3 G/DL 6.3 - 8.2 [facility] Albumin [Mass/volume] in Serum or Plasma 4.4 G/DL 3.9 - 5.0 [facility] Globulin [Mass/volume] in Serum by calculation 2.9 GM/DL 2.4 - 3.2 [facility] A/G RATIO 1.5 0.8 - 2.0 [facility] Calcium [Mass/volume] in Serum or Plasma 10.1 MG/DL 8.4 - 10.2 [facility] Bilirubin.total [Mass/volume] in Serum or Plasma <0.7 MG/DL 0.2 - 1.3 [facility] Alkaline phosphatase [Enzymatic activity/volume] in Serum or Plasma 61 U/L 38 - 126 [facility] Aspartate aminotransferase [Enzymatic activity/volume] in Serum or Plasma 15 U/L 5 - 40 [facility] Alanine aminotransferase [Enzymatic activity/volume] in Seru m or Plasma 11 U/L 7 - 56 [facility] Anion gap 3 in Serum or Plasma 8.0 mmol/L 8.0 - 16.0 [facility] AGE 24 yrs [facility] NON-AA GFR >60 mL/min [facility] AFR AMER GFR >60 mL/min [facility] Male GFR In terprentation 20-49 yrs >60 mL/min Normal 50-59 yrs >56 mL/min Normal 60-69 yrs >49 mL/min Normal 70-79yrs >42 mL/min Normal 80 and above >35 mL/min Normal Female GFR Interpretation 20-39 yrs >60 mL/min Normal 40-49 yrs >58 mL/min Normal 50-59 yrs >51 mL/min Normal 60-69 yrs >45 mL/min Normal 70-79 yrs >39 mL/min Normal 80 and above >32 mL/min Normal ID Date Data Source [id number] 02/20/2020 07:03:00 PM [facility] Name Value Range Interpretation Code Description Data Anne Marie rce(s) Supporting Document(s) Prothrombin time (PT) 13.1 SECONDS 11.0 - 15.5 [facility] INR in Platelet poor plasma by Coagulation assay 0.94 0.93 - 1. 23 [facility] \\BLDo\\INR INTERPRETATION\\BLDx\\ Therapeutic range for Coumadin and related oral anticoagulants. - International Normalized Ratio (INR): 2.0 - 3.0 for Venous Thrombosis, Pulmonary Embolus, Tissue heart valves, Acute [place], Atrial Fibrillation, Valvular heart disease and recurrent Systemic Embolism. -International Normalized Ratio (INR): 2.5 - 3.5 for Mechanical Prosthetic valve. ID Date Data Source [id number] 02/20/2020 06:56:00 PM [facility] Name Value Range Interpretation Code Description Data Anne Marie rce(s) Supporting Document(s) HCG SERUM QUAL NEGATIVE NORMAL: NEGATIVE [facility] HCG SERUM QL REENTER NEGATIVE NORMAL: NEGATIVE [facility] { KIT LOT # [id number] ){ KIT EXP DATE 12.31.20 ){ PROCEDURAL CONTROL VALID ) ID Date Data Source [id number] 02/20/2020 06:46:[address] [facility] Name Value Range Interpretation Code Description Data Anne Marie rce(s) Supporting Document(s) Lactate [Moles/volume] in Serum or Plasma 1.5 MMOL/L 0.2 - 2.2 [facility] ID Date Data Source [id number] 02/20/2020 06:43:[address] [facility] Name Value Range Interpretation Code Description Data Anne Marie rce(s) Supporting Document(s) CBC W/AUTOMATED DIFF [facility] COMPLETE BLOOD COUNT Leukocytes [#/volume] in Blood by Automated count 7.1 10^3/uL 4.2 - [address] [facility] Erythrocytes [#/volume] in Blood by Automated count 4.57 10^6/uL 4. 20 - 5.40 [facility] Hemoglobin [Mass/volume] in Blood 13.8 g/dL 12.0 - 16.0 [facility] Hematocrit [Volume Fraction] of Blood by Automated count 41.0 % 3 7.0 - 47.0 [facility] Erythrocyte mean corpuscular volume [Entitic volume] by Auto mated count 89.7 fL 81.0 - 101 [facility] Erythrocyte mean corpuscular hemoglobin [Entitic mass] by Automated count 30.2 pg 27.0 - 34.0 [facility] Erythrocyte mean corpuscular hemoglobin concentration [Mass/volume] by Automated count 33.7 g/dL 31.0 - 36.0 [facility] Erythrocyte distribution width [Ratio] by Automated count 11.8 % 11.5 - 14.5 [facility] Platelets [#/volume] in Blood by Automated count 332 10^3/uL 150 - [address] [facility] Platelet mean volume [Entitic volume] in Blood by Automated count 10.3 fL 7.4 - 10.4 [facility] Neutrophils/100 leukocytes in Blood by Automated count 61.9 % 37. 0 - 80.0 [facility] Lymphocytes/100 leukocytes in Blood by Manual count 27.1 % 25.0 - 40.0 [facility] Monocytes/100 leukocytes in Blood by Automated count 9.3 % 3.0 - 8.[address] [facility] Eosinophils/100 leukocytes in Blood by Automated count 0.6 % 0.0 - 7.0 [facility] Basophils/100 leukocytes in Blood by Automated count 0.8 % 0.0 - 2.5 [facility] %IG 0.3 % 0.0 - 0.0 H [facility] %NRBC 0.0 % 0.0 - 0.0 [facility] al Neutrophils [#/volume] in Blood by Automated count 4.37 10^3/uL 2.00 - 6.90 [facility] Lymphocytes [#/volume] in Blood by Automated count 1.91 10^3/uL 0.60 - 3.40 [facility] Monocytes [#/volume] in Blood by Automated count 0.66 10^3/uL 0.00 - 0.90 [facility] Eosinophils [#/volume] in Blood by Automated count 0.04 10^3/uL 0.00 - 0.70 [facility] Basophils [#/volume] in Blood by Automated count 0.06 10^3/uL 0.00 - 0.20 [facility] #IG 0.02 10^3/uL 0.00 - 0.10 [facility]spital #NRBC 0.00 10^3/uL 0.00 - 0.00 [facility] MANUAL DIFF NOT INDICATED [facility] RBC MORPH NOT INDICATED [facility] spital ID Date Data Source [id number] 01/11/2020 09:47:00 AM EDT [facility] [address] [place] [address] PHONE: [phone] FAX: [phone] Name .................. : SONYA CURRAN Acct Number.................. : [id number] ROOM. ................. : TR-1B MR Number ................... : [id number] Stay type ............. : E/R Discharge Date......... ... : 01/10/20 Admit Date ......... : 01/10/20 Admit Phys .................... : CELYRIN BELLA Date of ....... : 1995 Family Phys ................... : UNKNOWN Phone .................. : [phone] Age ................................ : 24 Film# .................. .:[id number] Sex ................................. : F Unsigned transcriptions are preliminary reports and do not represent a medical or legal [place] [id number] COMPLETE:01/10/20 20:10 ADB 62167 Reason(s): miscarriage T RANSVAGINAL OB ULTRASOUND: INDICATION: Miscarriage. FINDINGS: There is no evidence of an intrauterine . The ovaries are not visualized on this examination. There is a small amount of free fluid in the cul-de-sac, within normal limits for a reproductive age female. IMPRESSION: No intrauterine . Electronically Reviewed and Signed By Niraj Green M.D. , 01/11/20 09:47, [facility] Transcribe Initials: GARRETT , Transcribe Date: 01/11/20 00:01, Dictation Date: Copy for: SUSI ARMENDARIZ via fax Copy for: EMERGENCY DEPT via modem Copy for: 710 MED REC DISCHARGED Page 1 of 1 Name Value Range Interpretation Code Description Data Anne Marie rce(s) Supporting Document(s) ID Date Data Source [id number] 01/11/2020 09:46:00 AM EDT [facility] [address] [place] [address] PHONE: [phone] FAX: [phone] Name .................. : SONYA CURRAN Acct Number.................. : [id number] ROOM. ................. : TR-1B MR Number ................... : [id number] Stay type ............. : E/R Discharge Date......... ... : 01/10/20 Admit Date ......... : 01/10/20 Admit Phys .................... : TAMRA BLANCO Date of ....... : 1995 Family Phys ................... : UNKNOWN Phone .................. : [phone] Age ................................ : 24 Film# .................. .:[id number] Sex ................................. : F Unsigned transcriptions are preliminary reports and do not represent a medical or legal document OB 1ST TRI UP TO 14 WEEKS 11494 COMPLETE:01/10/20 20:10 ADB [id number] Reason(s): miscarriage 10 weeks FIRST TRIMESTER OB ULTRASOUND: INDICATION: Miscarriage. FINDINGS: The uterus measures 8.3 x 3.7 x 4.6 cm. The endometrial stripe measures 4 mm in thickness. There is no evidence of an intrauterine or extrauterine . IMPRESSION: No intra or extrauterine visualized. Electronically Reviewed and Signed By Niraj Green M.D. , 01/11/20 09:46, [place] Transcribe Initials: GARRETT , Transcribe Date: 01/10/20 23:59, Dictation Date: Copy for: SUSI ARMENDARIZ via fax Copy for: EMERGENCY DEPT via modem Copy for: 710 MED REC DISCHARGED Page 1 of 1 Name Value Range Interpretation Code Description Data Anne Marie rce(s) Supporting Document(s) ID Date Data Source [id number] 01/10/2020 06:31:[address] [facility] [address] [facility] Emergency Department [address] [place] [address] Phone #: ext- [phone] 01/10/2020 18:10 Patient: MAGDY HASSAN Sex: F : 1995 Age: 24yWEIGHT:89.8 kg (S) HEIGHT:68 inches (S) BMI:30.1ALLERGIES: No Known Drug AllergyCHIEF COMPLAINT: vag bleeding, pelvic painDIAGNOSIS: Spontaneous abortionLAB ORDERSOrder Description Priority Entered Acknowledged InitialedCBC w Diff STAT 18:50 12/26 18:50 Rene Sorensen R.N.;CMP STAT 18:50 01/10/2020 18:50 Rene Sorensen R.N.;Type Rh STAT 18:50 01/10/2020 18:50 Rene Sorensen R.N.;Urinalysis (Clean STAT 18:50 01/10/2020 18:50 Edu,Catch) Rene LOPEZ;HCG Serum Quant STAT 18:50 01/10/2020 18:50 Rene Sorensen R.N.;DIAGNOSTIC STUDY ORDERSOrder Description Priority Entered Acknowledged InitialedUS OB 1ST TRI UP STAT 18:50 01/10/2020 Ack'd: 18:50 19:13 Sorbero,TO 14 WEEKS Precious Rowan R.N.(Oxygen?(No)) PA; R.NNicolás(IV?(Yes)) Reason for Study: miscarriage 10 weeksUS OB STAT 18:50 01/10/2020 Ack'd: 18:50 19:13 Sorbero,TRANSVAGINAL Precious Rowan R.N. [place] PA; R.NNicolás(IV?(Yes))(Oxygen?(No)) Reason for Study: miscarriageMEDICATION/IV/DRIP/FLUID ORDERS [address] [facility] Emergency Department [address] [place] [address] Phone #: ext- [phone] 01/10/2020 18:10 Patient: MAGDY HASSAN Sex: F : 1995 Age: 24yOrder Description Priority Entered Acknowledged InitialedIV NS : Bolus 1000 18:50 01/10/2020 19:41 Sorbero,mL, then 150 mL/hr Rene LOPEZ;Morphine IVP 4 mg 18:50 01/10/2020 19:42 Sorbero,(HIGH ALERT Rene Streeter R.N.MEDICATION) JOHN;Zofran IVP 8 mg 18:50 01/10/2020 19:41 Rene Sheikh R.N.;GENERAL ORDERSOrder Description Priority Entered Acknowledged InitialedNPO 18:50 01/10/2020 18:50 Rene Sorensen R.N.;Saline Lock 18:50 01/10/2020 18:50 Rene Sorensen R.N.;[Electronically signed by Reina Cast R.N. (20:27 01/10/2020)][Electronically signed by Rene Scott (22:12 01/10/2020)][Electronically locked by Reina Cast R.N. (20:27 01/10/2020)] Name Value Range Interpretation Code Description Data Anne Marie rce(s) Supporting Document(s) ID Date Data Source [id number] 01/10/2020 06:31:[address] [facility] [address] [facility] Emergency Department [address] [place] [address] Phone #: ext- [phone] 01/10/2020 18:10 Patient: MAGDY HASSAN Sex: F : 1995 Age: 24yWeight: 89.8 kgHeight/Length: 68 in.BMI: 30.1ALLERGIES: No Known Drug AllergyThe patient's Home Medications are listed below:CONTINUE TAKING THE FOLLOWING MEDICATIONS: Levothyroxine Sodium Oral (150 mcg) 1 tablet, dailyThe source(s) of the original Home Medication information:Not obtained.The following Medications were given to the patient in the Emergency Department:IV NS IV Fluids bolus 0, then 1500 mL/hr, administered: 01/10/2020 7:41:00 PMZofran [IVP] IVP 8 mg, administered: 01/10/2020 7:41:00 PMMorphine [IVP] IVP 4 mg, administered: 01/10/2020 7:42:00 PMThe following Medications were prescribed to the patient:None. Name Value Range Interpretation Code Description Data Anne Marie rce(s) Supporting Document(s) ID Date Data Source [id number] 01/10/2020 06:31:[address] [facility] [address] [facility] Emergency Department [address] [place] [address] Phone #: ext- [phone] 01/10/2020 18:10 Patient: MAGDY HASSAN Sex: F : 1995 Age: 24yWeight: 89.8 kgHeight/Length: 68 inBMI: 30.1ALLERGIES: No Known Drug Allergy Date/Time Medication Administered Medication OrderedStart IV NS IV NS : Bolus 1000 mL, then 14485:41 01/10/2020 Dose: IV Fluids mL/hrSFerdinand loyd R.NNicolás Rate: 1500 mL/hr over 40 minute(s)---- Dispensed: 1000 mL bagStop Site: #1 left AC20:15 01/10/2020Reina Cast RNicolásNNicolásGiven MORPHINE [IVP] Morphine IVP 4 mg (HIGH ALERT19:42 01/10/2020 Dose: 4 mg IVP MEDICATION)Ferdinand Sheikh R.NNicolás Site: #1 left ACGiven ZOFRAN [IVP] (ONDANSETRON HCL) Zofran IVP 8 mg19:41 01/10/2020 Dose: 8 mg IVPSFerdinand loyd R.N. Site: #1 left AC Name Value Range Interpretation Code Description Data Anne Marie rce(s) Supporting Document(s) ID Date Data Source [id number] 01/10/2020 06:31:[address] [facility] [address] [facility] Emergency Department [address] [place] [address] Phone #: ext- [phone] 01/10/2020 18:10 Patient: MAGDY HASSAN Sex: F : 1995 Age: 24yComplete spontaneous (miscarriage) with complications of excessive hemorrhage.INSTRUCTIONSWarnings: Further evaluation is necessary (OB Follow up). It is very important to [facility].GENERAL WARNINGS: Return or contact your physician immediately if your condition worsens orchanges unexpectedly, if not improving as expected, or if other problems arise. Specifically return if pain orbleeding worsens.Your Current Medications: Your current home medications have been reviewed.CONTINUE TAKING THE FOLLOWING MEDICATIONS:Levothyroxine Sodium Oral : Tablet 150 mcg, 1 tablet daily.Understanding of the discharge instructions verbalized by lorri wright.Follow-up with: [facility] Respective Team [place], , , [address] [facility] [place], , [place], [address] Follow up tomorrow. Reason for referral: evaluation, treatment and call for OB follow up. Summary ofcare provided to patient. ADDITIONAL INFORMATIONCompleted Spontaneous MiscarriageToday's exams show your has ended suddenly. This can be emotionally difficult. There islittle that can be done to change the way you feel. But understand that miscarriages are common.About 1 or 2 out of every [address] Some end even before you know you are. This happens for a number of reasons, and usually the cause is never known. It's importantyou know that it is not your fault. It didn't happen because you did anything wrong.Having sex or exercising does not cause a miscarriage. These activities are usually safe unless youhave pain or bleeding or your doctor tells you to stop. Even minor falls won't cause a miscarriage.Miscarriages happen because things were not developing as they were supposed to.It appears that your miscarriage is complete. All tissue from the should have passed out ofyour uterus. If some of the tissue remains in the uterus, you will probably have more [address] [facility] Emergency Department [address] [place] [address] Phone #: ext- [phone] 01/10/2020 18:10 [facility]ASS[id number] Sex: Juan : 1995 Age: 24ycramping and bleeding. The bleeding can be light spotting or like a period, but it is usually not heavy.You may also pass some tissue.After you have recovered, you should still be able to get again. But before trying, talk withyour healthcare provider.Home careFollow these tips to take of yourself at home: You can go back to your normal activities if you don't have heavy bleeding or pain. You may have some cramping and bleeding, but it shouldn't be severe.Until the bleeding stops completely and to prevent infection: Don't have sex until your healthcare provider says it's OK Use sanitary napkins instead of tampons. Don't douche.Having a miscarriage can be very difficult emotionally. It is natural to feel sadness or grief. It may helpto talk about your feelings with family and friends, or with a counselor.Follow-up careMake an appointment to see your healthcare provider in 1 to 2 weeks for a checkup.If cramping and bleeding return and continue for more than a few days, call your healthcare provideror return here for an exam. To prevent infection in the uterus, your provider might need to take outany tissue that remains. Or you may be given medicine to take at home to help your body expel therest of the tissue.If you had an ultrasound, a radiologist will review it. You will be told of any new findings that mayaffect your care.Call [phone] if you have: Severe pain and very heavy bleeding Severe lightheadedness, passing out, or fainting Rapid heart rate Difficulty breathing [address] [facility] Emergency Department [address] [place] [address] Phone #: ext- [phone] 01/10/2020 18:10 Patient: MAGDY HASSAN Sex: F : 1995 Age: 24y Confusion or difficulty waking upWhen to seek medical adviceCall your healthcare provider right away if any of these occur: Heavy bleeding. This means soaking 1 new pad an hour over 3 hours. Bleeding that doesn't stop after 10 days Foul-smelling vaginal discharge Fever of 100.4F (38C) or higher, or as directed by your healthcare provider Pain in your lower belly (abdomen) that gets worse Weakness or dizziness [phone] [employer] [address] [place] [address], [place] [address]. All rights reserved. This information is not intended as asubstitute for professional medical care. Always follow your healthcare professional's instructions. You have been given the following additional information: Miscarriage, Spontaneous (Completed)(Electronically signed by JOHN Morris 01/10/2020 22:12) Name Value Range Interpretation Code Description Data Anne Marie rce(s) Supporting Document(s) ID Date Data Source [id number] 01/10/2020 06:31:[address] [facility] 1 Clinical Report - Nurses [facility] Emergency Department [address] [place] [address] Phone #: ext- [phone] 01/10/2020 18:10 Patient: MAGDY HASSAN Sex: F : 1995 Age: 24yTRIAGEArrived by private vehicle. Historian: patient. Accompanied by family.Triage time: 18:16 01/10/2020. Acuity: LEVEL 3.Chief Complaint: ABDOMINAL PAIN.18:16 01/10/20. Alert. No acute distress.This started today. Onset. (1700). ( History of Miscarriage 2 weeks ago, had bright red spottingyesterday). She has had nausea. She has had transient dizziness (1730).Treatment [employer]:None.SEPSIS SCREEN: SIRS Screen negative. Sepsis Screen negative. No suspected or confirmed signs ofinfection present. --18:25 01/10/20 Ava Tate RN18:16 01/10/20. BP: 152/100. MAP: 117. HR: 83. RR: 23. O2 saturation: 99%. Temp: 98.1 F. Pain levelnow: 10/10. (cramping). It has been constant. Pain level at maximum: 10/10. No radiation noted. Noprovoking / relieving factors. --18:25 01/10/20 Ava Tate RN.Weight: 89.8 kg stated. Height/Length: 68 inches Per Patient. BMI: 30.1. --18:01/10/20 CECE Hong.MedicationsLevothyroxine Sodium Oral (Tablet 150 mcg) 1 tablet, daily. --18:01/10/20 Ava Tate RN.AllergiesNo Known Drug Allergy. --18:22 01/10/20 Ava Tate RN.PROBLEMS:Hypothyroidism: (Thyroidectomy). --18:22 01/10/20 Ava Tate RNMiscarriage (disorder). --18:27 01/10/20 Ferdinand Sheikh, RCalixto.ADDITIONAL SURGERIES:Thyroid Surgery.Tonsillectomy. --18:22 01/10/20 Ava Tate RN.Sydesyt90:16 01/10/20.PAST MEDICAL HX: Immunizations: up-to-date. Last normal menstrual period- October 13. 1. 2 Clinical Report - Nurses [facility] Emergency Department [address] [place] [address] Phone #: [phone]- [phone] 01/10/2020 18:10 Patient: MAGDY HASSAN Sex: F : 1995 Age: 24y Abortions 1. Last oral intake by patient was (1300). SOCIAL HX: Never smoker. Occasional alcohol use. No drug use. No recent travel. No known contact with a sick individual. She was offered HIV testing but declined and hepatitis C testing but declined. She has not traveled outside the [place] Infectious disease exposure: No infectious disease exposure. (Negative COVID-19 screen). Patient is not a known carrier of tuberculosis, hepatitis, HIV, MRSA or VRE. Patient is not a known carrier of CRE. SELF HARM ASSESSMENT: Self harm assessment was performed. The patient answered "no" to the question(s) "Do you have thoughts of harming or killing yourself?" and "Have you recently had thoughts about harming or killing others?". ABUSE ASSESSMENT: Abuse assessment. The patient had positive responses to the question(s) "Do you feel safe in your home?" (yes). Abuse denied. No report of abuse. NUTRITIONAL RISK ASSESSMENT: The nutritional risk assessment revealed no deficiencies. FUNCTIONAL ASSESSMENT: Functional assessment: no impairments noted. LEARNING NEEDS ASSESSMENT: The learning needs assessment revealed no barriers. FALL RISK ASSESSMENT: Fall risk assessment completed. No risk factors identified. SKIN INTEGRITY ASSESSMENT: Skin integrity risk assessment completed. No skin integrity risk identified. --18:25 01/10/20 Ava Tate RN.PHYSICAL [id number] 01/10/20. Patient gowned.GENERAL / NEURO / PSYCH: Alert. Oriented X 4. Appears in no acute distress.HEENT: Mucous membranes are pink.RESPIRATORY: Respirations not labored. Breath sounds within normal limits.CVS: Capillary refill less than 2 seconds.GI / : Abdomen soft and nontender. Bowel sounds within normal limits.SKIN: Skin is warm and dry. --18:29 01/10/20 Ferdinand Sheikh R.N.NURSING PROGRESS NOTESlate entry - 18:15 01/10/20. Patient ID band checked for patient name and birthdate: patient confirmed.Instructions provided to collect clean catch urine and patient verbalized understanding. Clean catch urinecollected; sample sent to lab for urinalysis and HCG. Specimen labeled in the presence of the patient.--18:51 01/10/20 Precious Sorensen R.N. 18:16 01/10/20. Patient gowned. Head of bed elevated. Two patient identifiers checked. Call light placed in reach. Side rails up. Bed placed in lowest position. Brakes of bed on. Patient ready for evaluation- ED physician and PA notified. --18:25 01/10/20 Ava Tate RN 3 Clinical Report - Nurses [facility] Emergency Department [address] [place] [address] Phone #: ext- [phone] 01/10/2020 18:10 Patient: MAGDY HASSAN Sex: F : 1995 Age: 24y 18:22 01/10/2020 Site #1 started via IV in the left antecubital space with an 18g angiocath, with aseptic technique and good blood return; one attempt. Blood drawn: rainbow set and blood bank tube. Labeled in the presence of the patient and sent to the lab. Saline lock flushed with 10 mL saline (by Viktoriya Sorensen RN). --18:26 01/10/20 Ava Tate RN 19:12 01/10/20. Patient transported to sonogram by wheelchair with field operations technician. --19:22 01/10/20 Ferdinand Sheikh, R.NNicolás 19:32 01/10/20. Patient returned from sonogram by wheelchair with field operations technician. --19:33 01/10/20 Ferdinand Sheikh R.N. 19:41 01/10/2020 Started bag #1 1000 mL IV Fluids IV NS; at 1500 mL/hr over 40 minute(s) via site #1 via IV pump. Allergies verified and confirmed 5 rights. IV patency established. IV site checked: no pain, redness, or swelling. IV flushed thoroughly pre- and post-medication administration. Information reviewed with patient including reason for taking this medication, signs of allergic reaction and precautions. Verbalizes understanding. --19:41 01/10/20 Ferdinand Sheikh R.NNicolás 19:41 01/10/2020 Zofran (Ondansetron HCl) IVP 8 mg given over 2 minute(s) via site #1. Allergies verified and confirmed 5 rights. IV patency established. IV site checked: no pain, redness, or swelling. IV flushed thoroughly pre- and post-medication administration. IVP given by RN. Information reviewed with patient including reason for taking this medication, signs of allergic reaction and precautions. Verbalizes understanding. --19:41 01/10/20 Ferdinand Sheikh R.N. 19:42 01/10/2020 Morphine IVP 4 mg given over 2 minute(s) via site #1. Allergies verified and confirmed 5 rights. IV patency established. IV site checked: no pain, redness, or swelling. IV flushed thoroughly pre- and post- medication administration. IVP given by RN. Information reviewed with patient including reason for taking this medication, signs of allergic reaction, precautions and sedative warning. Verbalizes understanding. --19:42 01/10/20 Ferdinand Sheikh R.N. 20:15 01/10/2020 IV Fluids IV NS via IV site #1 Discontinued: completed upon discharge. Total amount infused: 1000 mL. IV patency established. IV site checked: no pain, redness, or swelling. IV flushed thoroughly. --20:27 01/10/20 Reina Cast R.N.DISPOSITION / DISCHARGE 20:20 01/10/20. Condition at departure: stable. ( Pt remains stable, to follow up with OB). Discharge instructions provided and reviewed with the patient and spouse. Reviewed referral to an tractor operator helper. Written instructions provided in [place]ar[place]. The patient was discharged by the physician administrative assistant. She was discharged home and accompanied by spouse. She left ambulatory and via private vehicle. Spouse driving. --20:26 01/10/20 Reina Cast R.N. 20:20 01/10/20. BP: 138/91. MAP: 106. HR: 80. RR: 16. O2 saturation: 99%. Temp: deferred. Pain level now: 05/07. --20:26 01/10/20 Reina Cast R.N. 20:20 01/10/2020 Site #1 removed upon discharge. Manual pressure and bandage applied. --20:26 4 Clinical Report - Nurses [facility] Emergency Department [address] [place] [address] Phone #: ext- [phone] 01/10/2020 18:10 Patient: MAGDY HASSAN Sex: F : 1995 Age: 24y 01/10/20 Reina Cast R.N.Locked/Released at 01/10/2020 20:27 by Reina Cast R.N. Name Value Range Interpretation Code Description Data Anne Marie rce(s) Supporting Document(s) ID Date Data Source [id number] 01/10/2020 06:31:[address] [facility] 1 Clinical Report - Physicians/Mid Levels [facility] Emergency Department [address] [place] [address] Phone #: ext- [phone] 01/10/2020 18:10 Patient: MAGDY HASSAN Sex: F : 1995 Age: 24y Time Seen: 18:50 01/10/2020. Arrived- By private vehicle. Historian- patient.HISTORY OF PRESENT ILLNESS Chief Complaint: VAGINAL BLEEDING and PELVIC PAIN. This started 2 weeks ago. She has had severe, intermittent, sharp, crampy suprapubic and left-sided pelvic pain, described as "pain", with vaginal bleeding. She has had mild vaginal bleeding (vaginal bleeding x 2 weeks, spotting for the last week). Is still present and worsening. (History of miscarriage 2 weeks ago. Pt states that 10 week US 2 weeks ago revealed a "collapsed sack" and she was given Methotrexate to expel contents of conception. She had heavy bleeding for the following week and has had bright red spotting since then. She reports associated cramping, nausea, and transient dizziness. At 1700 cramping/abd pain became markedly worse. Pt now reporting 10/10 LLQ ABD pain, intermittent, every few minutes. Pain is radiating to the lower back and R shoulder.). Similar symptoms previously. None. Recent medical care: The patient was seen recently at another facility in the office ([facility] 2 weeks ago).REVIEW OF SYSTEMSThe patient has had moderate nausea. No vomiting, diarrhea, black stools, bloody stools or double vision.No fainting episodes, fever, eye discomfort, eye discharge or sore throat. No cough, difficulty breathing,chest pain, skin rash or enlarged lymph nodes. No chills or joint pain. The patient has had a moderate,sharp global headache (today).PAST HISTORYProblems:Miscarriage (disorder).Hypothyroidism. Additional Surgeries: Thyroid Surgery. Tonsillectomy. Medications: Levothyroxine Sodium Oral (Tablet 150 mcg) 1 tablet, daily. Allergies: No Known Drug Allergy.SOCIAL HISTORY 2 Clinical Report - Physici ans/Mid Levels [facility] Emergency Department [address] [place] [address] Phone #: ext- [phone] 01/10/2020 18:10 Patient: MAGDY HASSAN Sex: F : 1995 Age: 24y Never smoker. Occasional alcohol use. No drug use. No recent travel.PHYSICAL EXAMVital Signs: 01/10/2020 18:16 BP: 152/100. MAP: 117. HR: 83. RR: 23. O2 saturation: 99%. Temp: 98.1F. Pain level now: 1010. Have been reviewed as abnormal. Hypertensive. Mean arterial pressure-normal. Heart rate normal. Tachypneic. Temperature normal. Oxygen saturation normal.Appearance: Alert. Oriented X3. Appears to be in pain. Patient in mild distress.HEENT: Normal external inspection.ENT: Pharynx normal.Neck: Neck supple.CVS: Heart sounds normal.Respiratory: No respiratory distress. Painless inspiration. Breath sounds normal. Chest nontender.Abdomen: Soft. Severe tenderness diffusely and in the suprapubic area and left lower quadrant. Bowelsounds normal. No organomegaly. No mass. Mildly obese.Back: Normal external inspection.Skin: Skin warm and dry. Normal skin color. No rash. Normal skin turgor.Extremities: Extremities nontender. No pathologic edema.Neuro: Oriented X 3. Mood/affect normal. No motor deficit. No sensory deficit.LABS, X-RAYS, AND EKGLaboratory Tests: Laboratory tests have been ordered, with results reviewed and considered in themedical decision making process. CBC w Diff: (NINA: 01/10/2020 18:25) ( MsgRcvd 01/10/2020 19:08) Final results Test Result Flag Units (Reference) CBC W/AUTOMATED DIFF COMPLETE BLOOD COUNT WBC 8.2 10/uL (4.2 - 11.0) RBC 4.74 10/uL (4.20 - 5.40) HEMOGLOBIN 14.4 g/dL (12.0 - 16.0) HEMATOCRIT 42.8 % (37.0 - 47.0) MCV 90.3 fL (81.0 - 101) MCH 30.4 pg ( 27.0 - 34.0) MCHC 33.6 g/dL (31.0 - 36.0) RDW 12.7 % (11.5 - 14.5) PLATELETS 387 10/uL (150 - 450) MPV 10.3 fL (7.4 - 10.4) NEUT 64.6 % (37.0 - 80.0) LYMPH 24.5 L % (25.0 - 40.0) MONO 8.3 H % (3.0 - 8.0) EOS 1.3 % (0.0 - 7.0) BASO 0.9 % (0.0 - 2.5) %IG 0.4 H % (0.0 - 0.0) %NRBC 0.0 % (0.0 - 0.0) #NEUT 5.32 10/uL (2.00 - 6.90) #LYMPH 2.02 10/uL (0.60 - 3.40) #MONO 0.68 10/uL (0.00 - 0.90) #EOS 0.11 10/uL (0.00 - 0.70) #BASO 0.07 10/uL (0.00 - 0.20) #IG 0.03 10/uL (0.00 - 0.10) #NRBC 0.00 10/uL (0.00 - 0.00) MANUAL DIFF NOT INDICATED 3 Clinical Report - Physicians/Mid Levels [facility] Emergency Department [address] [place] [address] Phone #: ext- [phone] 01/10/2020 18:10 Patient: MAGDY HASSAN Sex: F : 1995 Age: 24y RBC MORPH NOT INDICATEDCMP: (NINA: 01/10/2020 18:25) ( MsgRcvd 01/10/2020 19:23) Final results Test Result Flag Units (Reference) COMPREHENSIVE METABOLIC PANEL COMPREHENSIVE METABOLIC PANEL SODIUM 137 mEq/L (134 - 153) POTASSIUM 4.0 mEq/L (3.6 - 5.0) CHLORIDE 102 mEq/L (98 - 107) CO2 24 MEQ/L (22 - 30) GLUCOSE 111 H MG/DL (65 - 110) BUN 11 MG/DL (7 - 21) CREATININE 0.8 MG/DL (0.7 - 1.5) BUN/CREAT 14 (8 - 27) TOTAL PROTEIN 8.0 G/DL (6.3 - 8.2) ALBUMIN 4.6 G/DL (3.9 - 5.0) GLOBULIN 3.4 H GM/DL (2.4 - 3.2) A/G RATIO 1.4 (0.8 - 2.0) CALCIUM 9.5 MG/DL (8.4 - 10.2) TOTAL BILI <0.7 MG/DL (0.2 - 1.3) ALKALINE PHOS 80 U/L (38 - 126) SGOT/AST 18 U/L (5 - 40) SGPT/ALT 12 U/L (7 - 56) ANION GAP 11.0 mmol/L (8.0 - 16.0) AGE 24 yrs NON-AA GFR >60 mL/min AFR AMER GFR >60 mL/min Male GFR Interprentation 20-49 yrs >60 mL/min Smpuxp80-88 yrs >56 mL/min Normal 60-69 yrs >49 mL/min Normal 70-79yrs>42 mL/min Normal 80 and above >35 mL/min Normal Female GFRInterpretation 20-39 yrs >60 mL/min Normal 40-49 yrs >58 mL/minNormal 50-59 yrs >51 mL/min Normal 60-69 yrs >45 mL/min Csqnsg55-57 yrs >39 mL/min Normal 80 and above >32 mL/min NormalType Rh: (NINA: 01/10/2020 18:25) ( ArgRcvd 01/10/2020 19:40) Final results Test Result Flag Units (Reference) ABO GROUP O RH TYPE POSITIVE { ABO/RH REENTER O POSITIVEUrinalysis: (NINA: 01/10/2020 18:25) ( MsgRcvd 01/10/2020 19:00) Final results Test Result Flag Units (Reference) URINALYSIS URINALYSIS SOURCE R COLOR yellow (NORMAL: Yello CLARITY clear (NORMAL: Clear SPEC GRAVITY 1.005 (1.001 - 1.030 pH 7 (5 - 9) GLUCOSE NORM (NORMAL: Negat BILIRUBIN NEG (NORMAL: Negat KETONE NEG (NORMAL: Negat PROTEIN NEG (NORMAL: Negat NITRITE NEG (NORMAL: Negat BLOOD NEG (NORMAL: Negat 4 Clinical Report - Physicians/Mid Levels [facility] Emergency Department [address] [place] [address] Phone #: ext- [phone] 01/10/2020 18:10 Patient: MAGDY HASSAN Sex: F : 1995 Age: 24y LEUK EST NEG (NORMAL: Negat UROBILINOGEN NOR (less than 1.0 MICROSCOPIC Not Indicate Beta-HCG, Quant Serum: (NINA: 01/10/2020 18:25) ( MsgRcvd 01/10/2020 19:29) Final results Test Result Flag Units (Reference) HCG QUANT 8.9 mIU/mL Interpretation: Less than 5 mU/mL: Negative 6-10 mU/mL: Borderline (suggest repeat in 48 hours) >10: Positive Approx HCG range (mU/mL) Weeks post LMP 5.4-708 mU/mL 3-4 Weeks 217-07061 mU/mL 5-6 Weeks 4059-376866 mU/mL 7-8 Weeks 00278-191107 mU/mL 9-10 Weeks 42801-25238 mU/mL 12-14 Weeks 65278-19515 mU/mL 15-16 Weeks 8240-67063 mU/mL 17-18 Weeks . Note - Tests: (OB US- neg for IUP, previous US demonstrated IUP).PROGRESS AND PROCEDURESCourse of Care: 20:Jan 10 2020. Evaluation after observation. (Discussed Quant of 8.9 and likely firstperiod bleeding after miscarriage and pt needs to f/u with OB). Patient and spouse counseled in person regarding the patient's stable condition, test resu lts, diagnosis and need for follow-up. Patient and spouse agrees with plan of care. 20:Jan 10 2020. Disposition: Discharged home in good and improved condition (20:Jan 10 2020).CLINICAL IMPRESSION Complete spontaneous (miscarriage) with complications of excessive hemorrhage.INSTRUCTIONS Warnings: Further evaluation is necessary (OB Follow up). It is very important to follow up with a healthcare provider. GENERAL WARNINGS: Return or contact your physician immediately if your condition worsens or changes unexpectedly, if not improving as expected, or if other problems arise. Specifically return if pain or bleeding worsens. Your Current Medications: Your current home medications have been reviewed. CONTINUE TAKING THE FOLLOWING MEDICATIONS: Levothyroxine Sodium Oral : Tablet 150 mcg, 1 tablet daily. Understanding of the discharge instructions verbalized by patient. 5 Clinical Report - Physicians/Mid Levels [facility] Emergency Department [address] [place] [address] Phone #: ext- [phone] 01/10/2020 18:10 Patient: MAGDY HASSAN Sex: F : 1995 Age: 24y [facility] Res[facility] Team [place], , , [address], , [place], [address] Follow up tomorrow. Reason for referral: evaluation, treatment and call for OB follow up. Summary of care provided to patient.(Electronically signed by JOHN Morris 01/10/2020 22:12) Name Value Range Interpretation Code Description Data Anne Marie rce(s) Supporting Document(s) ID Date Data Source [id number] 01/10/2020 07:40:[address] [facility] Name Value Range Interpretation Code Description Data Anne Marie rce(s) Supporting Document(s) ABO group [Type] in Blood O [facility] Rh [Type] in Blood POSITIVE [facility] { ABO/RH REENTER O POSITIVE ID Date Data Source [id number] 01/10/2020 07:29:[address] [facility] Name Value Range Interpretation Code Description Data Anne Marie rce(s) Supporting Document(s) Choriogonadotropin.intact [Units/volume] in Serum or Plasma 8.9 mIU/m L [facility] Interpr etation: Less than 5 mU/mL: Negative 6-10 mU/mL: Borderline (suggest repeat in 48 hours) >10: Positive Approx HCG range (mU/mL) Weeks post LMP 5.4-708 mU/mL 3-4 Weeks 217-39519 mU/mL 5-6 Weeks 4059-061381 mU/mL 7-8 Weeks 13449-489628 mU/mL 9-10 Weeks 18653-59580 mU/mL 12-14 Weeks 33307-88488 mU/mL 15-16 Weeks 2103- 67827 mU/mL 17-18 Weeks ID Date Data Source [id number] 01/10/2020 07:23:[address] [facility] Name Value Range Interpretation Code Description Data Anne Marie rce(s) Supporting Document(s) COMPREHENSIVE METABOLIC PANEL [facility] COMPREHENSIVE METABOLIC PANEL Sodium [Moles/volume] in Serum or Plasma 137 mEq/L 134 - 153 [facility] Potassium [Moles/volume] in Serum or Plasma 4.0 mEq/L 3.6 - 5.0 [facility] Chloride [Moles/volume] in Serum or Plasma 102 mEq/L 98 - 107 [facility] Carbon dioxide, total [Moles/volume] in Serum or Plasma 24 MEQ/L 22 - 30 [facility] Glucose [Mass/volume] in Serum or Plasma 111 MG/DL 65 - [address] [facility] BUN 11 MG[facility]DL [facility] Creat[facility] [Mass/volume] in Serum or Plasma 0.8 MG/DL 0.7 - 1.5 [facility] BUN/CREAT 14 8 - 27 [facility] al Protein [Mass/volume] in Serum or Plasma 8.0 G/DL 6.3 - 8.2 [facility] Albumin [Mass/volume] in Serum or Plasma 4.6 G/DL 3.9 - 5.0 [facility] Globulin [Mass/volume] in Serum by calculation 3.4 GM/DL 2.4 - 3.[address] [facility] A/G RATIO 1.4 0.8 - 2.0 [facility] Calcium [Mass/volume] in Serum or Plasma 9.5 MG/DL 8.4 - 10.2 [facility] Bilirubin.total [Mass/volume] in Serum or Plasma <0.7 MG/DL 0.2 - 1.3 [facility] Alkaline phosphatase [Enzymatic activity/volume] in Serum or Plasma 80 U/L 38 - 126 [facility] Aspartate aminotransferase [Enzymatic activity/volume] in Serum or Plasma 18 U/L 5 - 40 [facility] Alanine aminotransferase [Enzymatic activity/volume] in Seru m or Plasma 12 U/L 7 - 56 [facility] Anion gap 3 in Serum or Plasma 11.0 mmol/L 8.0 - 16.0 [facility] AGE 24 yrs [facility] NON-AA GFR >60 mL/min [facility] ital AFR AMER GFR >60 mL/min [facility] spital Male GFR In terprentation 20-49 yrs >60 mL/min Normal 50-59 yrs >56 mL/min Normal 60-69 yrs >49 mL/min Normal 70-79yrs >42 mL/min Normal 80 and above >35 mL/min Normal Female GFR Interpretation 20-39 yrs >60 mL/min Normal 40-49 yrs >58 mL/min Normal 50-59 yrs >51 mL/min Normal 60-69 yrs >45 mL/min Normal 70-79 yrs >39 mL/min Normal 80 and above >32 mL/min Normal ID Date Data Source [id number] 01/10/2020 07:08:[address] [facility] Name Value Range Interpretation Code Description Data Anne Marie rce(s) Supporting Document(s) CBC W/AUTOMATED DIFF [facility] COMPLETE BLOOD COUNT Leukocytes [#/volume] in Blood by Automated count 8.2 10^3/uL 4.2 - [address] [facility] Erythrocytes [#/volume] in Blood by Automated count 4.74 10^6/uL 4. 20 - 5.40 [facility] Hemoglobin [Mass/volume] in Blood 14.4 g/dL 12.0 - 16.0 [facility] Hematocrit [Volume Fraction] of Blood by Automated count 42.8 % 3 7.0 - 47.0 [facility] Erythrocyte mean corpuscular volume [Entitic volume] by Auto mated count 90.3 fL 81.0 - 101 [facility] Erythrocyte mean corpuscular hemoglobin [Entitic mass] by Automated count 30.4 pg 27.0 - 34.0 [facility] Erythrocyte mean corpuscular hemoglobin concentration [Mass/volume] by Automated count 33.6 g/dL 31.0 - 36.0 [facility] Erythrocyte distribution width [Ratio] by Automated count 12.7 % 11.5 - 14.5 [facility] Platelets [#/volume] in Blood by Automated count 387 10^3/uL 150 - [address] [facility] Platelet mean volume [Entitic volume] in Blood by Automated count 10.3 fL 7.4 - 10.4 [facility] Neutrophils/100 leukocytes in Blood by Automated count 64.6 % 37. 0 - 80.0 [facility] Lymphocytes/100 leukocytes in Blood by Manual count 24.5 % 25.0 - 40.[address] [facility] Monocytes/100 leukocytes in Blood by Automated count 8.3 % 3.0 - 8.[address] [facility] Eosinophils/100 leukocytes in Blood by Automated count 1.3 % 0.0 - 7.0 [facility] Basophils/100 leukocytes in Blood by Automated count 0.9 % 0.0 - 2.5 [facility] %IG 0.4 % 0.0 - 0.[address] [facility] %NRBC 0.0 % 0.0 - 0.0 [facility] al Neutrophils [#/volume] in Blood by Automated count 5.32 10^3/uL 2.00 - 6.90 [facility] Lymphocytes [#/volume] in Blood by Automated count 2.02 10^3/uL 0.60 - 3.40 [facility] Monocytes [#/volume] in Blood by Automated count 0.68 10^3/uL 0.00 - 0.90 [facility] Eosinophils [#/volume] in Blood by Automated count 0.11 10^3/uL 0.00 - 0.70 [facility] Basophils [#/volume] in Blood by Automated count 0.07 10^3/uL 0.00 - 0.20 [facility] #IG 0.03 10^3/uL 0.00 - 0.10 [facility] ospital #NRBC 0.00 10^3/uL 0.00 - 0.00 [facility] MANUAL DIFF NOT INDICATED [facility] RBC MORPH NOT INDICATED [facility] spital ID Date Data Source [id number] 01/10/2020 07:00:[address] [facility] Name Value Range Interpretation Code Description Data Anne Marie rce(s) Supporting Document(s) URINALYSIS [facility] raisa URINALYSIS SOURCE R [facility] COL[facility] yellow NORMAL: Yellow [facility] CLARITY clear NORMAL: Clear [facility] Specific gravity of Urine by Test strip 1.005 1.001 - 1.030 [facility] pH 7 5 - [facility] Glucose [Mass/volume] in Urine by Test strip NORM NORMAL: Negat [facility] Bilirubin.total [Presence] in Urine by Test strip NEG NORMAL: Negative [facility] Ketones [Presence] in Urine by Test strip NEG NORMAL: Negative [facility] Protein [Mass/volume] in Urine by Test strip NEG NORMAL: Negat [facility] Nitrite [Presence] in Urine by Test strip NEG NORMAL: Negative [facility] BLOOD NEG NORMAL: Negative [facility] Leukocyte esterase [Presence] in Urine by Test strip NEG MARILYN L: Negative [facility] Urobilinogen [Mass/volume] in Urine by Test strip NOR less juanjo n 1.0 mg/dL [facility] MICROSCOPIC Not Indicate [facility] Procedure Social History Code Duration Value Status Description Data Source(s ) Alcohol intake 06/20/2020 12:00:00 AM EDT Current non-d papa of alcohol (finding) completed Current non-drinker of alcohol (finding) [facility] Tobacco use and exposure 06/20/2020 12:00:00 AM EDT Never used co mpleted Never used [facility] Smoking 06/20/2020 12:00:00 AM EDT Never smoker completed Never s [facility] Smoking 01/15/2020 12:00:00 AM EDT Never Smoker completed Never S [facility] Smoking 12/13/2019 12:00:00 AM EDT Patient has never smoked co mpleted Patient has never smoked [facility] ([facility]) Vital Signs ID Date Data Source UNK Name Value Range Interpretation Code Description Data Source(s) Systolic blood pressure 125 mm[Hg] 125 mm[Hg] M [facility]ENT ([facility]) Body temperature 98.5 [degF] 98.5 [degF] [facility] ([facility]) Body weight 202.00 [lb_av] 202.00 [lb_av] [facility] T ([facility]) Body height 68 [in_i] 68 [in_i] [facility] ([facility]) 5'8" Body mass index (BMI) [Ratio] 30.7 kg/m2 30.7 k g/m2 [facility] ([facility]) Diastolic blood pressure 85 mm[Hg] 85 mm[Hg] [facility] ([facility]) Heart rate 90 /min 90 /min [facility] ([facility]) Oxygen saturation in Arterial blood by Pulse oximetry 98 % 98 % [facility] ([facility]) Patient Treatment Plan of Care Planned Activity Planned Date Details Description Data Source (s) Ethinyl Estradiol 0.035 MG / norgestimate 0.25 MG Oral Tablet 10/22/2019 12:00:00 AM [facility] figueroa
--- NOTE | 2021-01-22 17:13 | REP ---
INDICATION: headache. COMPARISON: None. TECHNIQUE: CT brain performed in the axial plane. Coronal reconstruction images are performed. FINDINGS: The ventricles are normal in size and position.. There is no midline shift or mass effect. [place]-white differentiation is well maintained. There is no acute intracranial hemorrhage or extra-axial fluid collection. Bone window examination is unremarkable. The visualized mastoid air cells and paranasal sinuses are clear. IMPRESSION: Negative noncontrast CT brain. <Electronically signed by Zac Gamboa > 01/22/21 [id number]
== END 2021-01-22 18:41 | disposition left against medical advice (07) ==
LOC: M ED 15:41
DX: Z53.29 Procedure and treatment not carried out because of patient's decision for other reasons (principal)

== ENCOUNTER → 2021-09-09 | Outpatient (CLI) | payer OTHER | LOC: M WHC 11:12 | PROVIDERS: ATTEND Obstetrics & Gynecology | DX: N64.89 Other specified disorders of breast (principal) ==

== ENCOUNTER → 2021-10-16 | Outpatient (CLI) | payer OTHER | LOC: M WHC 07:40 | PROVIDERS: ATTEND Obstetrics & Gynecology | DX: N63.20 Unspecified lump in the left breast, unspecified quadrant (principal); N64.52 Nipple discharge ==